=== PATIENT | male | born 1970 | race Caucasian/White ===

== ENCOUNTER 2023-07-30 01:14 | Emergency (ER) | payer MEDICARE, MEDICAID, SELFPAY ==
[2023-07-30 01:26] VITALS: BP 110/60; PULSE 65; O2SAT 97
--- NOTE | 2023-07-30 01:27 | MHC.EDTECH ---
@0125 PT rang his call salinas to be repositioned to his left side. Vitals obtained.
[2023-07-30 01:29] VITALS: BP 92/58; PULSE 62; RESP 18; TEMP 36.6; O2SAT 94; BMI 17.0
--- NOTE | 2023-07-30 02:02 | MHC.EDTECH ---
@0201, PT rang call salinas to be repositioned more on to his Left side. This tech assisted the patient. stated he was more comfortable. PT is all set at this time.
[2023-07-30 02:42] LABS: Basophils Absolute Auto 0.1 X10*3/uL (0.0-0.2); Basophils Percent Auto 0.6 % (0-2); Eosinophils Absolute Auto 1.1 X10*3/uL (0.0-0.4); Eosinophils Percent Auto 7.7 % (0-4); Hemoglobin 10.4 g/dl (14.0-18.0); Imm Gran Abs Auto 0.04 X10*3/uL (0.00-0.03); Imm Gran Pct Auto 0.3 % (0.0-0.4); Lymphocytes Absolute Auto 2.7 X10*3/uL (1.2-4.9); Lymphocytes Percent Auto 18.3 % (20-40); MANUAL DIFF FLAG NO; Mean Corpuscular HGB Conc 33.5 g/dl (31.0-36.0); Mean Corpuscular Volume 86.4 fL (80.0-98.0); Mean Platelet Volume 8.3 fL (9.4-12.4); Monocytes Absolute Auto 1.4 X10*3/uL (0.1-1.2); Monocytes Percent Auto 9.3 % (2-11); Neutrophils Absolute Auto 9.4 x10*3/uL (2.0-8.3); Neutrophils Percent Auto 63.8 % (45-73); Platelet Count 467 X10*3/uL (160-400); Red Blood Count 3.59 X10*6/uL (4.60-5.80); Red Cell Distribution Width 14.1 % (11.0-16.0); White Blood Count 14.8 X10*3/uL (4.8-10.8)
[2023-07-30 02:58] LABS: Alanine Aminotransferase 8 U/L (0-40); Albumin Level 3.7 g/dL (3.5-5.0); Alkaline Phosphatase 54 U/L (39-117); Anion Gap 14 (12-20); Aspartate Amino Transferase 15 U/L (5-37); Bilirubin Total 0.3 mg/dL (0.0-1.0); Blood Urea Nitrogen 14 mg/dL (9-16); Calcium 9.3 mg/dL (8.4-10.2); Carbon Dioxide 27 mmol/L (22-29); Chloride 104 mmol/L (96-108); Creatinine Clr Calc Pharmacy 103.9; Estimated Glomerular Filt Rate > 60; Glucose Random 86 mg/dL (60-115); Potassium 3.5 mmol/L (3.3-5.1); Sodium 141 mmol/L (135-145); Total Protein 6.7 g/dL (6.5-8.0)
--- NOTE | 2023-07-30 03:04 | MHC.EDTECH ---
@0303 PT rang his call bed to be repositioned to his back, This tech assisted him to his back. And got him a warm blanket, All set at this time. Tech reminder him to press his salinas if and when ready to be reposition.
--- NOTE | 2023-07-30 03:22 | MHC.EDTECH ---
@0321 PT repositioned to L side. All set at this time.
--- NOTE | 2023-07-30 03:48 | ED_ITS ---
HPI - Male Genitourinary General Chief complaint: Urogenital-Male Stated complaint: CATH ISSUES Time Seen by Provider: 07/30/23 03:13 Source: patient and EMS Mode of arrival: EMS Limitations: no limitations History of Present Illness HPI Narrative: 52-year-old male from [facility], had Luciano catheter placed at the facility at 14:00 with initial drainage of 200 mL, catheter is not draining any urine output since then, patient was transported feel like he needs to urinate with suprapubic distention bladder scan showed patient had 300 cc. Patient was started on Cipro for UTI. Related Data Allergies Allergy/AdvReac Type Severity Reaction Status Date / Time No Known Allergies Allergy Verified 07/30/23 01:35 Review of Systems 2 Review of Systems: All other systems are reviewed and are negative Constitutional: Reports as per HPI and Reports no additional constitutional complaints Eyes: Reports as per HPI and Reports no additional eye complaints Reports system reviewed and no additional complaints, except as documented Cardiovascular: Reports as per HPI and Reports no additional cardiovascular complaints Respiratory: Reports as per HPI and Reports no additional respiratory complaints Gastrointestinal: Reports as per HPI and Reports no additional gastrointestinal complaints Genitourinary: Reports no additional female genitourinary complaints Musculoskeletal: Reports no additional musculoskeletal complaints Skin/Breast: Reports system reviewed and no additional complaints, except as docu Psychiatric: Reports no additional psychiatric complaints Endocrine: Reports no additional endocrine complaints Hematologic/Lymphatic: Reports no additional hematologic/lymphatic complaints Allergic/Immunologic: Reports no additional allergic/immunologic complaints Reports system reviewed and no additional complaints, except as documented and Reports Abnormal speech present [facility] Social History Social History Alcohol intake: former Smoked in Last 30 Days: Yes Use of substances other than those prescribed or required for medical reasons: Yes Substance Use Type: Marijuana Advance Directives: Yes Advance Directives on File: Yes Advance Directives Date on File: 07/30/23 Physical Exam 2 Vital Signs: Vital Signs: Last Vital Signs Temp 98.4 F 07/30/23 03:55 Pulse 70 07/30/23 03:55 Resp 18 07/30/23 03:55 BP 115/78 07/30/23 03:55 Pulse Ox 97 07/30/23 03:55 O2 Del Method Room Air 07/30/23 03:55 BMI result Body Mass Index 17.0 Vital signs have been reviewed and appear to be correct. Blood pressure elevated. Heart rate normal. Respiratory rate normal. Temperature normal. Oxygen saturation normal. Appearance: Alert. Oriented X3. No acute distress. Head: Normal external exam. Normocephalic. Atraumatic. No Daly signs noted. No raccoon eyes noted Eyes: PERRLA. EOMI. Conjunctiva and sclera normal. Eyelids normal. ENT: TM's Normal. Pharynx normal. Uvula midline. Moist mucous membranes. No trismus noted. No drooling noted. No muffled voice noted. Neck: Normal inspection. Neck supple. FROM. No adenopathy. Thyroid Normal. No meningeal signs. No neck mass noted. CVS: Normal heart rate and rhythm. Heart sound normal. No murmurs noted. Pulses normal throughout. Respiratory: No respiratory distress. Painless inspiration. Breath sounds normal. No wheezes/rales/rhonchi noted. Chest nontender. No accessory muscle usage noted or decreased air movement noted. Abdomen: Soft and nontender. Bowel sounds normal in all 4 quadrants. No distention noted. No organomegaly noted. No visible injury noted. Back: No CVA tenderness. Full range of motion noted. Skin: Skin warm and dry. Normal skin color. Normal skin turgor. No rashes/lesions/lacerations noted. Extremities: No lower extremity edema. Extremities exhibit normal range of motion. Extremities nontender. Neuro: Oriented X 3. Cranial nerve exam: II-XII are grossly intact No motor deficit. No sensory deficit. Reflexes normal. Course Reevaluation(s) Reevaluation #1: Luciano catheter was replaced in the emergency department with drainage of urine, patient feels comfortable after drained 600 mL urine. Leukocytosis likely due to UTI the patient is currently on Cipro no sepsis or septic shock Patient is already on Cipro for UTI will arrange for transportation back to [facility]. Time: 05:00 Medical Decision Making Differential Diagnosis Differential Diagnoses: The differential diagnosis associated with the presentation includes (MARIALUISA, urinary retention, UTI, severe anemia, electrolyte derangement.) Admission/Observation Consideration of admission/observation: Escalation of care including admission/observation considered Lab Data MDM Lab Attestation statement: I reviewed the patient's lab results. 07/30/23 02:37 07/30/23 02:37 Labs: Lab Results 07/30/23 Range/Units 02:37 WBC 14.8 H (4.8-10.8) X10*3/uL RBC 3.59 L (4.60-5.80) X10*6/uL Hgb 10.4 L (14.0-18.0) g/dl Hct 31.0 L (42.0-52.0) % MCV 86.4 (80.0-98.0) fL MCH 29.0 (27.0-33.0) pg MCHC 33.5 (31.0-36.0) g/dl RDW 14.1 (11.0-16.0) % Plt Count 467 H (160-400) X10*3/uL MPV 8.3 L (9.4-12.4) fL Immature Gran % (Auto) 0.3 (0.0-0.4) % Neut % (Auto) 63.8 (45-73) % Lymph % (Auto) 18.3 L (20-40) % Cassia % (Auto) 9.3 (2-11) % Eos % (Auto) 7.7 H (0-4) % Baso % (Auto) 0.6 (0-2) % Lymph # (Auto) 2.7 (1.2-4.9) X10*3/uL Cassia # (Auto) 1.4 H (0.1-1.2) X10*3/uL Eos # (Auto) 1.1 H (0.0-0.4) X10*3/uL Baso # (Auto) 0.1 (0.0-0.2) X10*3/uL Abs Immat Gran (auto) 0.04 H (0.00-0.03) X10*3/uL Absolute Neuts (auto) 9.4 H (2.0-8.3) x10*3/uL Absolute Nucleated RBC 0.000 (0.0-0.012) X10*3/uL Nucleated RBC % (auto) 0.0 (0.0-0.2) /100WBC Sodium 141 (135-145) mmol/L Potassium 3.5 (3.3-5.1) mmol/L Chloride 104 (96-108) mmol/L Carbon Dioxide 27 (22-29) mmol/L Anion Gap 14 (12-20) BUN 14 (9-16) mg/dL Creatinine 0.63 (0.5-1.4) mg/dL Estim Creat Clear Calc 103.9 Estimated GFR > 60 Random Glucose 86 (60-115) mg/dL Calcium 9.3 (8.4-10.2) mg/dL Total Bilirubin 0.3 (0.0-1.0) mg/dL AST 15 (5-37) U/L ALT 8 (0-40) U/L Alkaline Phosphatase 54 (39-117) U/L Total Protein 6.7 (6.5-8.0) g/dL Albumin 3.7 (3.5-5.0) g/dL Discharge Plan Discharge Clinical Impression: Urinary tract infection, Malfunction of indwelling urinary catheter Patient Disposition: Xfer [facility] Instructions: Luciano Catheter Placement and Care (ED) Referrals: Johnnie Sands MD [Physician] - Print Language: Peruvian
[2023-07-30 03:55] VITALS: BP 115/78; PULSE 70; RESP 18; TEMP 36.9; O2SAT 97
--- NOTE | 2023-07-30 04:00 | PC.NURSE ---
Pt A[facility]Ox3[facility], staff reports F/C placed at 2pm with output of 200 mL and since then Pt has not had any urine output. Attempts made to irrigate & F/C was changed. Pt on Cipro for UTI. Pt reports discomfort to bladder, no urine output noted in 16F f/c placed by rehab center. Bladder scan results 311 mL. F/C replaced to 18F, with 600 mL of clear yellow urine, small clot noted on insertion, Pt tolerated well. Pt reports hx of MS, contracture to lower extremities. Pt repositioned for comfort.
[2023-07-30 06:00] VITALS: BP 111/65; PULSE 73; RESP 16; TEMP 37.2; O2SAT 96
--- NOTE | 2023-07-30 06:13 | MHC.EDTECH ---
@5256 PT rang call salinas to be repositioned. At this time PT is all set.
--- NOTE | 2023-07-30 06:51 | MHC.EDTECH ---
@2072 PT rang call salinas to be repositioned to L side. All set at this time.
[2023-07-30 06:59] VITALS: BP 111/65; PULSE 73; RESP 16; TEMP 37.2; O2SAT 96
--- NOTE | 2023-07-30 07:02 | PC.NURSE ---
[facility] Pt awaiting transport via [facility].
== END 2023-07-30 08:59 ==
PROVIDERS: Emergency Provider Emergency Medicine
DX: N39.0 Urinary tract infection, site not specified (principal); T83.018A Breakdown (mechanical) of other urinary catheter, initial encounter; Y84.6 Urinary catheterization as the cause of abnormal reaction of the patient, or of later complication, without mention of misadventure at the time of the procedure; Y92.9 Unspecified place or not applicable
CPT/HCPCS: 36415; 51702; 80053; 85025; 99283; 99284

== ENCOUNTER 2023-09-25 11:08 | Outpatient (AMB) | payer MEDICARE, MEDICAID, SELFPAY ==
--- OUTSIDE RECORDS SUMMARY | 2023-09-25 11:10 | XMS_ITS | Continuity of Care Document ---
Author Organization [facility] Address [address] [place] [address] [address] [place] [address]- Care Team Providers Care Transit Mix Operator Name Role Phone Sami STAPLES, Geo Novak Primary Care Physician Encounter [facility] Date(s): 02/25/23 - 05/21/23 [facility] [address] [place] [id number]- Attending Physician: [place] STAPLES, Darrel Urias Referring Physician: Not on Staff, Referring MD Allergies, Adverse Reactions, Alerts No Known Allergies Medications acetaminophen 325 mg oral tablet 650 mg, 2, tablet, By Mouth, Every 4 hours, PRN, Maintenance, pain/fever >100F, 12/03/22 14:25:00 EDT, Partial fill upon patient request if the prescription is for a schedule II opioid drug. Start Date: 12/03/22 Status: Ordered bisacodyl 10 mg rectal suppository 1 supp = 10 mg, Rectally, Every 72 hours, PRN if no BM in 3 days, Maintenance, 12/03/22 14:27:00 EDT, Suppository, Partial fill upon patient request if the prescription is for a schedule II opioid drug. Start Date: 12/03/22 Status: Ordered dantrolene 25 mg oral capsule = 25 mg, By Mouth, 3 times a day, 0 Refills, Maintenance, 03/11/23 15:31:00 EST, Capsule, Partial fill upon patient request if the prescription is for a schedule II opioid drug. Start Date: 03/11/23 Status: Ordered Docusate Sodium Capsule 100 mg, 1, capsule, By Mouth, 2 times a day, Refills 0, Maintenance, 03/11/23 15:31:00 EST, Partialfill upon patient request if the prescription is for a schedule II opioid drug. Start Date: 03/11/23 Status: Ordered fludrocortisone 0.1 mg oral tablet = 0.2 mg, By Mouth, Daily, 0 Refills, Maintenance, 03/11/23 15:40:00 EST, Tablet, Partial fill uponpatient request if the prescription is for a schedule II opioid drug. Start Date: 03/11/23 Status: Ordered lidocaine 5% topical film Topically, Daily, 0 Refills, Maintenance, 03/11/23 15:31:00 EST, Patch, Partial fill upon patient request if the prescription is for a schedule II opioid drug. Start Date: 03/11/23 Status: Ordered melatonin 3 mg oral tablet = 3 mg, By Mouth, Daily at bedtime, PRN Insomnia, 0 Refills, Maintenance, 03/11/23 15:32:00 EST, Tablet, Partial fill upon patient request if the prescription is for a schedule II opioid drug. Start Date: 03/11/23 Status: Ordered midodrine 5 mg oral tablet 15 mg, By Mouth, 3 times a day, Refills 0, Maintenance, 03/11/23 15:31:00 EST, Partial fill upon patient request if the prescription is for a schedule II opioid drug. Start Date: 03/11/23 Status: Ordered MOM Liquid 30 mL, By Mouth, Every 72 hours, PRN if no BM in 3 days, Maintenance, 12/03/22 14:29:00 EDT, Partial fill upon patient request if the prescription is for a schedule II opioid drug. Start Date: 12/03/22 Status: Ordered Multivit Therapeutic/Minerals Tablet 1 tablet, By Mouth, Daily, 0 Refills, Maintenance, 03/11/23 15:31:00 EST, Tablet, Partial fill uponpatient request if the prescription is for a schedule II opioid drug. Start Date: 03/11/23 Status: Ordered pantoprazole 20 mg oral delayed release tablet = 20 mg, By Mouth, Daily, 0 Refills, Maintenance, 03/11/23 15:31:00 EST, EC Tablet Start Date: 03/11/23 Status: Ordered Remove Patch Start Date: 03/11/23 Status: Ordered senna 187 mg oral tablet 1 tablet = 8.6 mg, By Mouth, 2 times a day, 0 Refills, Maintenance, 03/11/23 15:31:00 EST, Tablet, Partial fill upon patient request if the prescription is for a schedule II opioid drug. Start Date: 03/11/23 Status: Ordered thiamine 100 mg oral tablet 100 mg, By Mouth, 2 times a day, Refills 0, Maintenance, 03/11/23 15:31:00 EST, Partial fill upon patient request if the prescription is for a schedule II opioid drug. Start Date: 03/11/23 Status: Ordered Problem List Condition Confirmation Course Effective Dates Status H ealth Status Informant Weakness Confirmed Active Fall from wheelchair Confirmed Active MS (multiple sclerosis) Confirmed Active Urinary retention Confirmed Active Rhabdomyolysis Confirmed Active UTI (urinary tract infection) Confirmed Active Social History Social History Type Response Smoking Status 5-9 cigarettes (betw een 1/4 to 1/2 pack)/day in last 30 days entered on: 03/25/18 Sex Patient Care team information Care Team Personnel Name: Geo Gallardo MD Position: [facility] Physician - Primary Care Member Role: PCP Address: Address: [address] [place] [address] Name: Sabine Calvo RN Position: [facility] RN Member Role: Primary Care Nurse Name: Chyna Curtis RN Position: [facility] RN Member Role: Primary Care Nurse Name: Austin Holden RN Position: [facility] RN Member Role: Primary Care Nurse Name: Benja Christianson RN Position: [facility] RN Member Role: Primary Care Nurse Name: Chyna Gooden LPN Position: [facility] RN Member Role: Primary Care Nurse Name: Conrado Peña RN Position: [facility] RN Member Role: Primary Care Nurse Name: Vitaliy Marie RN Position: [facility] RN Member Role: Primary Care Nurse Name: Linda Mcbride RN Position: [facility] RN Member Role: Primary Care Nurse Name: Price Saeed RN Position: [facility] RN Member Role: Primary Care Nurse Name: Flavia Villegas RN Position: S RN Member Role: Primary Care Nurse Name: Kelly Dodge RN Position: [facility] RN Member Role: Primary Care Nurse Care Team Related Persons Name: CARMINA AVILA Address: home [address] [place] [id number] Name: LORNE TINEO Address: [place] [address]
--- OUTSIDE RECORDS SUMMARY | 2023-09-25 11:10 | XMS_ITS | Continuity of Care Document ---
Author Organization [facility] Address [address] [place] [id number]- Care Team Providers Care Recreation Programmer Name Role Phone Sami STAPLES, Geo Novak Primary Care Physician ( [phone] Encounter [facility] Date(s): 06/09/23 - 07/09/23 [facility] [address] [place] [id number]- Attending Physician: Katie Ansari Admitting Physician: Katie Ansari Referring Physician: AdmKatie guerrero Allergies, Adverse Reactions, Alerts No Known Allergies [...] Team Personnel Name: Geo Gallardo MD Position: [facility] Physician - Primary Care Member Role: PCP Address: Address: [address] [place] [id number] Name: Sabine Calvo RN Position: [facility] RN Member Role: Primary Care Nurse Name: Chyna Curtis RN Position: [facility] RN Member Role: Primary Care Nurse Name: Austin Holden RN Position: [facility] RN Member Role: Primary Care Nurse Name: Benja Christianson RN Position: [facility] RN Member Role: Primary Care Nurse Name: Chyna Gooden LPN Position: [facility] RN Member Role: Primary Care Nurse Name: Conrado Peña RN Position: [facility] RN Member Role: Primary Care Nurse Name: Vitaliy Marie RN Position: [facility] RN Member Role: Primary Care Nurse Name: Linda Mcbride RN Position: [facility] RN Member Role: Primary Care Nurse Name: Price Saeed RN Position: [facility] RN Member Role: Primary Care Nurse Name: Flavia Villegas RN Position: [facility] RN Member Role: Primary Care Nurse Name: Kelly Dodge RN Position: [facility] RN Member Role: Primary Care Nurse Care Team Related Persons Name: CARMINA AVILA Address: home [address] [place] [id number] Name: LORNE TINEO Address: [place] [address]
--- OUTSIDE RECORDS SUMMARY | 2023-09-25 11:10 | XMS_ITS | Summary of Care ---
Author Organization [facility] Address [address] [place] [id number] Encounter 12/08/22 - 12/26/[address] [address] Discharge Disposition: Discharge/Transfer to Inpatient SNF Attending Physician: Francisco Green MD Admitting Physician: Francisco Green MD Allergies, Adverse Reactions, Alerts No Known Medication Allergies Assessment and Plan Extracted from: Title:Discharge Summary Rehab Author:Anjali Figueroa Date:12/26/22 Patient: JD AVILA Age: 52 years Sex: Male : 1970 Associated Diagnoses: None Author: Anjali Figueroa Discharge Information Discharge Summary Information Admitted 12/08/2022 Discharged 12/26/2022 History of Present Illness [This is a 52-year-old male with a significant past medical history of MS who was recently hospitalized secondary to UTI and rhabdomyolysis and was discharged to [facility] after a fall that occurred 3 weeks ago. Was evaluated at [facility] at that time and spent 2 weeks at [facility] before discharging to [facility] where patient shortly after he developed leukocytosis and was sent to [facility] for evaluation for likely sepsis secondary to UTI with Pseudomonas. In ED patient was found to have penile erythema small amount of white purulent drainage noted at the penile meatus and small lesions under the meatus with no pus or erythema noted. Luciano catheter was replaced in the ED, urology was consulted and declined suprapubic catheter patient was started on Rocephin ID consulted and they recommended 1 week antibiotic course from 12/02 and completed IV antibiotics today day of discharge prior to admission here at [facility]. Neurology was also consulted for MS management due to worsening lower extremity spasticity. Patient did have head CT, MRI of T-spine and L-spine with and without contrast with head CT showing no acute findings but does show evidence of a right thalamic possible lacunar infarct in addition to significant white matter disease possibly from MS. MRIs were not able to be obtained secondary to availability in hospital. Patient continued to be improved clinically and patient was trialed on oxycodone, baclofen, and clonazepam for spasticity. Patient cannot tolerate baclofen 10 mg 3 times daily and oxycodone secondary to increased somnolence therefore the dose was decreased to baclofen 5 mg 3 times daily and as needed clonazepam. Patient was deemed medically stable and discharged here to [facility] for short-term rehab with goals to return back to home.] Histories Past Medical/ Surgical History: [Multiple sclerosis no surgical history] Code Status: This was discussed in detail with the patient and full resuscitation Current Care Providers: PCP is Lyla Obando NP Family History: [No significant familial history Social History: [Lives alone, current smoker 1 pack/day for 30 years, occasional marijuana use, has not consumed alcohol in roughly 2-1/2 years Premorbid Functional History: from discussion patient does need help with majority of ADLs and IADLs which include dressing showering transferring. Needs a wheelchair to maneuver at home. Hospital Course Multiple sclerosis with acute exacerbation -Currently being treated for acute exacerbation. Received iv methylprednisolone 1gm daily X 4 days completed last dose today - continue Protonix 40 mg twice daily and will monitor blood sugars during this time period as well. Patient reports feeling much better today compared to over the past few weeks. Was able to participate in therapy all day yesterday. ? Baclofen 10 mg 3 times daily. We will treat as this is MS flare. ? Physiatry following. Should follow-up with [facility] neurology outpatient for repeat MRI. Pt did have EMG at [facility] pending results, he will need follow up with neurology scheduled. Urinary retention with Luciano catheter ? Continue Flomax 0.4 mg nightly, finasteride 5 mg daily. - wounds from F/C continue mupirocin and nystatin to penile ulcer. - Follow-up with physiatry for voiding trial as stated above - he has refused voiding trial Acute on chronic lower back pain - no pain today ? Physiatry following. Will monitor. - continue lidocaine patch QHS - lumbar x-ray revealed L1-L2 arthritis - we trialed Valium for spams and pain with no improvement therefore discontinued Adjustment Disorder - suspect Pt is depressed he has not been eating, refuses therapies at times secondary to pain and muscle spasms although he has participated more often in the last 5 days - Patient was seen by the counselor during the rehab stay. Follow-up with PCP regarding continued services. Leukocytosis- resolved ? On admittance to rehab was at 11. Likely reactive. Fluid encouraged. ? Repeat was normal at 9.3. Continue to monitor. Sepsis secondary to UTI with physical deconditioning and impaired functional mobility and ADLs ? With prolonged hospitalization x2 - Treated initially with IV ceftriaxone and completed course of treatment on 12/08. Urine became colonized with Pseudomonas secondary to chronic Luciano. - Leukocytosis resolved. Patient to follow-up urology as outpatient. Continue hydration. Monitor. Nicotine use ? Continue with nicotine patch. RT following. ? Encourage cessation. Monitor. DVT prophylaxis: -Lovenox 40 mg daily and to ambulating at baseline Results Review CBC WITH AUTO DIFF ( Status: F ) WBC 9.3 4.8-10.8 x10-3/uL RBC 4.5 4.5-5.5 x10-6/uL HEMOGLOBIN 13.6 13.5-17.5 g/dL HEMATOCRIT 39.4 L 42-54 % MCV 87.6 79-98 fL MCH 30.2 27-32 pg MCHC 34.5 32-37 g/dL RDW 13.0 11-15 % PLT COUNT 529 H 130-400 x10-3/uL MEAN PLATELET VOLUME 9.2 7-11 fL NRBC % AUTO 0.0 <1 % NEUT % 53.4 % LYMPH % 27.3 % MONO % 13.6 % EOS % 4.4 % BASO % 1.1 % IMMATURE GRANULOCYTES % 0.2 % NRBC # AUTO 0.00 <0.1 x10-3/uL ABSOLUTE NEUT 4.97 1.5-7.0 x10-3/uL LYMPH # 2.54 1-5.0 x10-3/uL MONO # 1.27 H 0.2-1.0 x10-3/uL EOS # 0.41 0-0.5 x10-3/uL BASO # 0.10 0-0.2 x10-3/uL IMMATURE GRANULOCYTES # 0.02 0-0.03 x10-3/uL ML C COMPREHENSIVE METABOLIC PANEL ( Status: F ) GLUCOSE 76 70-100 mg/dL C BUN 19 5-25 mg/dL CREAT 0.74 0.7-1.3 mg/dL GLOMERULAR FILTRATION RATE 109 >60 C SODIUM 139 135-145 mEq/L POTASSIUM 3.9 3.5-5.5 mmol/L CHLORIDE 101 96-110 mmol/L CO2 29 21-32 mmol/L ANION GAP 9 3-11 CALCIUM 9.0 8.5-10.5 mg/dL TOTAL PROTEIN 7.1 6.0-8.0 G/dL ALBUMIN 3.5 3.2-5.0 G/dL BILI,TOTAL 0.4 0.0-1.4 mg/dL SGOT 23 10-42 U/L SGPT 31 10-60 U/L ALK PHOS 81 42-121 U/L MAGNESIUM ( Status: F ) MAGNESIUM 2.3 1.9-2.6 mg/dL Allergies (1) Active Reaction No Known Medication Allergies None Documented Discharge Medications (10) Active aspirin 81 mg oral delayed release tablet 81 mg = 1 tab, Oral, Daily baclofen 10 mg oral tablet 10 mg = 1 tab, Oral, TID enoxaparin 40 mg/0.4 mL injectable solution 40 mg = 0.4 mL, Subcutaneous, Daily finasteride 5 mg oral tablet 5 mg = 1 tab, Oral, Daily Flomax 0.4 mg oral capsule 0.4 mg = 1 cap, Oral, QHS melatonin 10 mg oral capsule 10 mg = 1 cap, PRN, Oral, QHS mirtazapine 15 mg oral tablet 7.5 mg = 0.5 tab, Oral, QHS Multiple Vitamins with Minerals oral tablet 1 tab, Oral, Daily nicotine 21 mg/24 hr transdermal film, extended release 1 patch, Transdermal, Daily oxyCODONE 5 mg oral tablet 5 mg = 1 tab, PRN, Oral, q6hr Zanaflex 4 mg oral tablet 2 mg = 0.5 tab, Oral, q8hr ADL Status Trend [id number] Eating: Setup or clean-up assistance - 05 (12/26/22 08:00:00) [id number] Eating: Setup or clean-up assistance - 05 (12/25/22 17:00:00) [id number] Oral Hygiene: Setup or clean-up assistance - 05 (12/24/22 20:00:00) [id number] Oral Hygiene: Setup or clean-up assistance - 05 (12/24/22 07:00:00) [id number] Upper Body Dressing: Patient/Resident refused - 07 (12/25/22 20:00:00) [id number] Upper Body Dressing: Patient/Resident refused - 07 (12/24/22 20:00:00) [id number] Lower Body Dressing: Dependent - (12/25/22 20:00:00) [id number] Lower Body Dressing: Dependent - (12/24/22 20:00:00) [id number] Toileting Hygiene: Dependent - (12/24/22 13:00:00) [id number] Toileting Hygiene: Dependent - (12/24/22 07:00:00) [id number] Toilet Transfer: Dependent - (12/24/22 07:00:00) [id number] Toilet Transfer: Dependent - (12/22/22 13:05:00) SY7422 Shower, Bathe Self: Patient/Resident refused - 07 (12/24/22 20:00:00) [id number] Shower, Bathe Self: Partial/Moderate assistance - 03 (12/24/22 07:00:00) Tub/Shower Transfer- OT: Dep (12/23/22 11:44:00) Tub/Shower Transfer- OT: Dep (12/16/22 09:59:00) Diet -- 12/11/22 8:52:00 EDT, Texture: Level 7 - Regular, Liquid Consistency: Level 0 - Thin, Restrictions: No Restrictions, Adapative Equipment: Built up utensils Scoop dish, Special Instructions: 12/10/22 Diced Mobility Functional Status Trend [id number] Lying to Sitting Side of Bed Goal: Partial/Moderate assistance - 03 (12/23/22 11:44:00) [id number] Lying to Sitting Side of Bed Goal: Partial/Moderate assistance - 03 (12/19/22 08:50:00) [id number] Sit to Stand: Partial/Moderate assistance - 03 (12/24/22 12:00:00) [id number] Sit to Stand: Not attempted due to medical condition or safety concerns - 88 (12/24/22 11:00:00) [id number] Chair,Bed to Chair Transfer: Dependent - 01 (12/25/22 09:00:00) [id number] Chair,Bed to Chair Transfer: Partial/Moderate assistance - 03 (12/24/22 12:00:00) [id number] Walk 10 Feet: Not attempted due to medical condition or safety concerns - (12/24/22 11:00:00) [id number] Walk 10 Feet: Not attempted due to medical condition or safety concerns - (12/22/22 13:00:00) [id number] Walk 50 Feet with Two Turns: Not attempted due to medical condition or safety concerns - (12/24/22 11:00:00) [id number] Walk 50 Feet with Two Turns: Not attempted due to medical condition or safety concerns - (12/22/22 13:00:00) [id number] Walk 150 Feet: Not attempted due to medical condition or safety concerns - (12/24/22 11:00:00) [id number] Walk 150 Feet: Not attempted due to medical condition or safety concerns - (12/22/22 13:00:00) WC Mobility- Level Comments: Pt in tilt in space w/c. Dependent to push w/c. (12/22/22 13:00:00) Speech/Language & Cognition Functional Status Trend Health Literacy SILS: Never (12/25/22 14:56:00) [id number] Expression of Ideas and Wants: Expresses complex messages without difficulty and with speech that is clear and easy to understand - 4 (12/25/22 09:56:00) [id number] Expression of Ideas and Wants: Exhibits some difficulty with expression needs and ideas (e.g., some words or finishing thoughts) or speech is not clear - 3 (12/24/22 16:22:00) EN1285 Understanding Verbal Content: Understands - Clear comprehension without cues or repetitions - 4 (12/25/22 09:56:00) [id number] Understanding Verbal Content: Usually understands - Understands most conversations, but misses some part/intent of message. Requires cues at times to understand - 3 (12/24/22 16:22:00) Person Orientation IP: Independent (12/19/22 08:50:00) Person Orientation IP: Independent (12/16/22 09:59:00) Place Orientation IP: Independent (12/19/22 08:50:00) Place Orientation IP: Independent (12/16/22 09:59:00) Time Orientation IP: Independent (12/19/22 08:50:00) Time Orientation IP: Independent (12/16/22 09:59:00) Situation Orientation IP: Independent (12/19/22 08:50:00) Situation Orientation IP: Independent (12/16/22 09:59:00) Attention Functional Status - OT: Usually Independent (12/24/22 07:00:00) Attention Functional Status - OT: Usually Independent (12/23/22 11:44:00) Memory Functional Status - OT IP: Usually Independent (12/24/22 07:00:00) Memory Functional Status - OT IP: Usually Independent (12/23/22 11:44:00) Safety Awareness/Insight - OT: Usually Independent (12/24/22 07:00:00) Safety Awareness/Insight - OT: Usually Independent (12/23/22 11:44:00) Simple Problem Solving Func Status OT: Usually Independent (12/24/22 07:00:00) Simple Problem Solving Func Status OT: Usually Independent (12/23/22 11:44:00) Complex Problem Solving Func Status OT: Usually Independent (12/24/22 07:00:00) Complex Problem Solving Func Status OT: Usually Independent (12/23/22 11:44:00) Vital Signs (last 24 hrs) Last Charted Temp Oral 97.9 DegF (DEC 26 05:09) Heart Rate Peripheral L 51bpm (DEC 26 05:10) SBP 91 mmHg (DEC 26 05:10) DBP L 57mmHg (DEC 26 05:10) SpO2 98 % (DEC 26 05:10) General: Patient was sitting up in WC. HEENT: PERRLA and EOMI Respiratory: Fair air entry bilateral. No rales or wheezing Cardiovascular: Regular rhythm S1 S2. No murmur heard Abdomen: soft, non-tender and BS present Extremities: No LE edema and no calf tenderness bilaterally Musculoskeletal: Diffuse muscle wasting, BLE contracture and tone increase Neuro: AOx3. Cranial nerves intact. Generalized weakness Luciano in place draining yellow urine Discharge Plan Discharge disposition: [facility]. Education and Follow-up Counseled: patient. Discharge Summary Plan Discharge Status: mild improvement. Prescriptions: continue same medications. Total time spent on DC is 38 minutes Addendum by Guillermo Suárez MD on December 26, 2022 13:34 EDT Patient seen chart review discussed with CARMINA Yepez patient also examined. Patient does need 24-hour care he is being discharged to a intermediate facility for continued rehabilitation and care. HEENT: pupils are equal reactive extraocular motions are intact, oral mucosa pink and moist Respiratory: Lungs clear to auscultation without wheezes, rales or rhonchi Cardiovascular: Regular rate and rhythm without murmurs, rubs or gallops Medical team at the intermediate facility will continue to follow the patient. Medications aspirin 81 mg oral delayed release tablet 81 mg, = 1 tab, Indication: Cerebrovascular accident Tab-EC, Oral, Daily, 0 Refill(s) Start Date: 12/26/22 Status: Ordered baclofen 10 mg oral tablet 10 mg = 1 tab, Tab, Oral, TID, 0 Refill(s) Start Date: 12/26/22 Status: Ordered enoxaparin 40 mg/0.4 mL injectable solution 40 mg, = 0.4 mL, Soln-Inj, Subcutaneous, Daily, 0 Refill(s), DVT Prophylaxis Start Date: 12/26/22 Status: Ordered finasteride 5 mg oral tablet 5 mg = 1 tab, Tab, Oral, Daily, 0 Refill(s) Start Date: 12/25/22 Status: Ordered Flomax 0.4 mg oral capsule 0.4 mg = 1 cap, Cap, Oral, QHS, 0 Refill(s) Start Date: 12/25/22 Status: Ordered melatonin 10 mg oral capsule 10 mg = 1 cap, Cap, Oral, QHS PRN, 0 Refill(s), Insomnia Start Date: 12/25/22 Status: Ordered mirtazapine 15 mg oral tablet 7.5 mg = 0.5 tab, Tab, Oral, QHS, 0 Refill(s) Start Date: 12/25/22 Status: Ordered Multiple Vitamins with Minerals oral tablet 1 tab, Tab, Oral, Daily, 0 Refill(s) Start Date: 12/25/22 Status: Ordered nicotine 21 mg/24 hr transdermal film, extended release 1 patch, Film, Transdermal, Daily, 0 Refill(s) Start Date: 12/26/22 Status: Ordered oxyCODONE 5 mg oral tablet 5 mg = 1 tab, Tab, Oral, q6hr PRN, 12 tab, 0 Refill(s), Dispense: 3 day, Partial fill upon patient request., PAIN (Scale 7-10), Stop date 12/28/22 11:16:00 EDT, Route to Pharmacy Electronically, [facility]/pharmacy #[id number], [phone], 12/23/22 7:07:00 EDT, Height/Le... Start Date: 12/25/22 Stop Date: 12/28/22 Status: Ordered Zanaflex 4 mg oral tablet 2 mg = 0.5 tab, Tab, Oral, q8hr, 0 Refill(s) Start Date: 12/26/22 Status: Ordered Problem List Condition Effective Dates Status Health Status Inform ant Depression(Confirmed) Active Fall(Confirmed) Active MS - Multiple sclerosis(Confirmed) Active UTI - Urinary tract infection(Confirmed) Active Results Laboratory List Name Date Glucose, POC 12/26/22 Glucose, POC 12/26/22 Glucose, POC 12/25/22 Most recent to oldest [Reference Range]: 1 2 3 Creatinine Level 0.74 mg/dL (12/19/22 12:29 PM) 0.79 mg/dL (12/11/22 10:44 AM) 0.65 mg/dL (12/09/22 10:45 AM) Estimated Creatinine Clearance 100.75 mL/min 1 (12/23/22 7:07 AM) 107.69 mL/min 2 (12/19/22 12:29 PM) 100.25 mL/min 3 (12/11/22 10:44 AM) Glucose POC RALS [74-106 mg/dL] 124 mg/dL *HI* (12/26/22 12:27 PM) 92 mg/dL (12/26/22 6:13 AM) 236 mg/dL *HI* (12/25/22 8:45 PM) 1Result Comment: Calculated using method: Cockcroft-Gault (default) Calculated using Formula : (140-ageInYears)*weightInKG/(72*scrInMGperDL) Age: 52 (85760196496.0) Serum Creatinine: 0.74 mg/dL (15142708466.0) Height: 178 cm (06886858114.0) Weight: 61 kg (Actual Body Weight used) 2Result Comment: Calculated using method: Cockcroft-Gault (default) Calculated using Formula : (140-ageInYears)*weightInKG/(72*scrInMGperDL) Age: 52 (18864812947.0) Serum Creatinine: 0.74 mg/dL (36226110524.0) Height: 178 cm (25313161815.0) Weight: 65.2 kg (Actual Body Weight used) 3Result Comment: Calculated using method: Cockcroft-Gault (default) Calculated using Formula : (140-ageInYears)*weightInKG/(72*scrInMGperDL) Age: 52 (29680254702.0) Serum Creatinine: 0.79 mg/dL (61758167677.0) Height: 178 cm (86539670277.0) Weight: 64.8 kg (Actual Body Weight used) Vital Signs Most recent to oldest [Reference Range]: 1 2 3 Temperature Oral F [96.4-99.1 DegF] 97.9 DegF (12/26/22 5:09 AM) 98.2 DegF (12/25/22 3:01 PM) 97.9 DegF (12/25/22 2:35 AM) Apical Heart Rate [60-100 bpm] 88 bpm (12/22/22 5:15 AM) Peripheral Pulse Rate [60-100 bpm] 51 bpm *LOW* (12/26/22 5:10 AM) 56 bpm *LOW* (12/25/22 3:02 PM) 50 bpm *LOW* (12/25/22 2:35 AM) Respiratory Rate [14-20 br/min] 16 br/min (12/25/22 2:35 AM) 20 br/min (12/22/22 4:34 AM) 20 br/min (12/21/22 4:05 AM) Blood Pressure [90-140/60-90 mmHg] 93/60mmHg (12/25/22 3:01 PM) Systolic Blood Pressure [90-140 mmHg] 91 mmHg (12/26/22 5:10 AM) 96 mmHg (12/25/22 2:35 AM) Diastolic Blood Pressure [60-90 mmHg] 57 mmHg *LOW* (12/26/22 5:10 AM) 59 mmHg *LOW* (12/25/22 2:35 AM) Mean Arterial Pressure, Cuff 69 mmHg (12/26/22 5:10 AM) 71 mmHg (12/25/22 3:01 PM) 71 mmHg (12/25/22 2:35 AM) Extremity used to obtain blood pressure Left Arm (12/19/22 4:21 AM) Left Arm (12/14/22 5:08 AM) Right Arm (12/13/22 8:07 PM) Temperature Oral 36.6 DegC 1 (12/26/22 5:09 AM) 36.8 DegC 2 (12/25/22 3:01 PM) Temperature Oral [35.8-37.3 DegC] 36.6 DegC (12/25/22 2:35 AM) 1Result Comment: Charted by SYSTEM secondary to charting of Temperature Oral F on a Vitals Monitor. Rule: VITALSLINK_CALCULATIONS_2 2Result Comment: Charted by SYSTEM secondary to charting of Temperature Oral F on a Vitals Monitor. Rule: VITALSLINK_CALCULATIONS_2 Social History Social History Type Response Sex Male
--- OUTSIDE RECORDS SUMMARY | 2023-09-25 11:10 | XMS_ITS | Continuity of Care Document ---
Author Organization [facility] Address [address] [facility], [address], [address] [place] [phone]- Care Team Providers Care Supply Chain Business Analyst Name Role Phone Jalen Obando GREEN MARKETING ANALYST, Lyla Fritz Primary Care P bessy Encounter [facility] Date(s): 11/17/22 - 12/17/22 [facility] [address], [address], [address] [place] [id number]- Allergies, Adverse Reactions, Alerts No Known Allergies Medications acetaminophen 325 mg oral tablet 650 mg, 2, tablet, By Mouth, Every 4 hours, PRN, Maintenance, pain/fever >100F, 12/03/22 14:25:00 EDT, Partial fill upon patient request if the prescription is for a schedule II opioid drug. Start Date: 12/03/22 Status: Ordered baclofen 5 mg oral tablet = 5 mg, By Mouth, 3 times a day, 0 Refills, Maintenance, 12/08/22 14:11:00 EDT, Tablet, Partial fill upon patient request if the prescription is for a schedule II opioid drug. Start Date: 12/08/22 Status: Ordered bisacodyl 10 mg rectal suppository 1 supp = 10 mg, Rectally, Every 72 hours, PRN if no BM in 3 days, Maintenance, 12/03/22 14:27:00 EDT, Suppository, Partial fill upon patient request if the prescription is for a schedule II opioid drug. Start Date: 12/03/22 Status: Ordered clotrimazole 1% topical cream apply to meatus, Topically, 2 times a day, Maintenance, 12/03/22 14:27:00 EDT, Cream, Partial fill upon patient request if the prescription is for a schedule II opioid drug. Start Date: 12/03/22 Status: Ordered enoxaparin 40 mg/0.4 mL injectable solution 0.4 mL = 40 mg, Subcutaneous Injection, Daily, Started 11/30/22, Maintenance, 12/03/22 14:28:00 EDT,Solution, Partial fill upon patient request if the prescription is for a schedule II opioid drug. Start Date: 12/03/22 Status: Ordered finasteride 5 mg oral tablet 1 tablet = 5 mg, By Mouth, Daily, # 30 tablet, 0 Refills, Maintenance, 11/27/22 15:59:00 EDT, Tablet, Partial fill upon patient request if the prescription is for a schedule II opioid drug. Start Date: 11/27/22 Status: Ordered Fleet Enema 19 gm-7 gm rectal enema 1 each, Rectally, Every 72 hours, PRN if no BM in 3 days, Maintenance, 12/03/22 14:29:00 EDT, Enema, Partial fill upon patient request if the prescription is for a schedule II opioid drug. Start Date: 12/03/22 Status: Ordered Flomax 0.4 mg oral capsule 0.4 mg, By Mouth, Daily at bedtime, # 30 capsule, Refills 0, Tot. Refills 0, Maintenance, 11/27/22 15:59:00 EDT, Print Requisition, Partial fill upon patient request if the prescription is for a schedule II opioid drug. Start Date: 11/27/22 Status: Ordered mirtazapine 7.5 mg oral tablet = 7.5 mg, By Mouth, Daily at bedtime, # 30 tablet, 0 Refills, Maintenance, 11/27/22 16:00:00 EDT, Tablet, Partial fill upon patient request if the prescription is for a schedule II opioid drug. Start Date: 11/27/22 Status: Ordered MOM Liquid 30 mL, By Mouth, Every 72 hours, PRN if no BM in 3 days, Maintenance, 12/03/22 14:29:00 EDT, Partial fill upon patient request if the prescription is for a schedule II opioid drug. Start Date: 12/03/22 Status: Ordered Mupirocin Topical Oint 1 applicator, Topically, 2 times a day, Penile meatus, # 22 Gm, 1 Refills, Maintenance, Ointment Start Date: 12/08/22 Stop Date: 01/07/23 Status: Ordered nicotine 21 mg/24 hr transdermal film, extended release 1 patch, Topically, Daily, Maintenance, 12/03/22 14:30:00 EDT, Patch, Partial fill upon patient request if the prescription is for a schedule II opioid drug. Start Date: 12/03/22 Status: Ordered Nystatin Topical 1 applicator, Topically, 3 times a day, 0 Refills, Maintenance, Ointment Start Date: 12/08/22 Status: Ordered Problem List Condition Confirmation Course [...] last 30 days entered on: 03/25/18 Sex Male Patient Care team information Care Team Personnel Name: Jalen Obando GREEN MARKETING ANALYST, Lyla Fritz Position: [facility] PCO Associate Professional Member Role: PCP Address: Address: [address] [place] [address] Primary Care [place], [place] [id number] Name: Janie Samuels RN Position: [facility] RN Supv Member Role: Primary Care Nurse Name: Benja Christianson RN Position: S RN Member Role: Primary Care Nurse Name: Conrado Peña RN Position: S RN Member Role: Primary Care Nurse Name: Linda Mcbride RN Position: [facility] RN Member Role: Primary Care Nurse Care Team Related Persons Name: CARMINA AVILA Address: home [address] [place] [id number] Name: LORNE T[place]O Address: [place] [address]
--- OUTSIDE RECORDS SUMMARY | 2023-09-25 11:10 | XMS_ITS | Continuity of Care Document ---
Author Organization [facility] [place] Address [address] [place] [address]- Care Team Providers Care Document Processor Name Role Phone Sami STAPLES, Geo Novak Primary Care Physician Encounter [facility] [place] Date(s): 05/19/23 - 06/18/23 [facility] [place] [address] [place] [address]- Attending Physician: Katie Ansari Admitting Physician: Katie Ansari Referring Physician: AdmtrKatie Allergies, Adverse Reactions, Alerts No Known Allergies [...] Care team information Care Team Personnel Name: Sami STAPLES, Geo Novak Position: [facility] Physician - Primary Care Member Role: PCP Address: Address: [address] [place] [address]- Name: Sabine Calvo RN Position: [facility] RN Member Role: Primary Care Nurse Name: Chyna Curtis RN Position: [facility] RN Member Role: Primary Care Nurse Name: Austin Holden RN Position: [facility] RN Member Role: Primary Care Nurse Name: Benja Christianson RN Position: [facility] RN Member Role: Primary Care Nurse Name: Chyna Gooden LPN Position: [facility] RN Member Role: Primary Care Nurse Name: Conrado Peña RN Position: [facility] RN Member Role: Primary Care Nurse Name: Vitaliy Marie RN Position: [facility] RN Member Role: Primary Care Nurse Name: Linda Mcbride RN Position: [facility] SN RN Member Role: Primary Care Nurse Name: Price Saeed RN Position: [facility] RN Member Role: Primary Care Nurse Name: Flavia Villegas RN Position: S RN Member Role: Primary Care Nurse Name: Kelly Dodge RN Position: [facility] RN Member Role: Primary Care Nurse Care Team Related Persons Name: CARMINA AVILA Address: home [address] [place] [id number] Name: LORNE TINEO Address: [place] [address]
--- OUTSIDE RECORDS SUMMARY | 2023-09-25 11:10 | XMS_ITS | Continuity of Care Document ---
Author Organization [facility] Address [address] [place] [id number]- Care Team Providers Care Liquid Loader Name Role Phone Jalen Obando NP, Lyla Fritz Primary Care P bessy Encounter [facility] [place] Date(s): 12/23/22 - 01/22/23 [facility] [address] [place] [id number]- Allergies, Adverse Reactions, Alerts No Known Allergies [...] information Care Team Personnel Name: Jalen Obando SPECIAL EFFECTS TECHNICIAN, Lyla Fritz Position: [facility] Associate Professional Member Role: PCP Address: Address: [address] [place] [address] [place] [address]- Name: Benja Christianson RN Position: S RN Member Role: Primary Care Nurse Name: Conrado Peña RN Position: S RN Member Role: Primary Care Nurse Name: Linda Mcbride RN Position: [facility] RN Member Role: Primary Care Nurse Care Team Related Persons Name: LANCEOTTO CARMINA Address: home [address] [place] [id number] Name: LORNE TINEO Address: [place] [address]
--- OUTSIDE RECORDS SUMMARY | 2023-09-25 11:10 | XMS_ITS | Continuity of Care Document ---
Author Organization [facility] [place] Address [address] [place] [address]- Care Team Providers Care Applications Consultant Name Role Phone Geo Gallardo MD Primary Care Physician Encounter [facility] Date(s): 02/18/23 - 06/18/23 [facility] [place] [address] [place] [address]- Attending Physician: Geo Gallardo MD Allergies, Adverse Reactions, Alerts No Known [...] Team Personnel Name: Geo Gallardo MD Position: [facility] Physician - Primary Care Member Role: PCP Address: Address: [address] [place] [address]- Name: Sabine Calvo RN Position: [facility] RN Member Role: Primary Care Nurse Name: Chyna Curtis RN Position: [facility] RN Member Role: Primary Care Nurse Name: Austin Holden RN Position: [facility] RN Member Role: Primary Care Nurse Name: Benja Christianson RN Position: [facility] RN Member Role: Primary Care Nurse Name: Chyna Gooden LPN Position: [facility] RN Member Role: Primary Care Nurse Name: Conrado Peña RN Position: [facility] RN Member Role: Primary Care Nurse Name: Vitaliy Marie RN Position: [facility] RN Member Role: Primary Care Nurse Name: Linda Mcbride RN Position: [facility] SN RN Member Role: Primary Care Nurse Name: Price Saeed RN Position: [facility] RN Member Role: Primary Care Nurse Name: Flavia Villegas RN Position: [facility] RN Member Role: Primary Care Nurse Name: Kelly Dodge RN Position: [facility] RN Member Role: Primary Care Nurse Care Team Related Persons Name: CARMINA AVILA Address: home [address] [place] [id number] Name: LORNE TINEO Address: [place] [address]
--- OUTSIDE RECORDS SUMMARY | 2023-09-25 11:10 | XMS_ITS | Continuity of Care Document ---
Author Organization [facility] ter Address [address] [place] [id number] Care Team Providers Care Carburetor Expert Name Role Phone Not on Staff, PCP Primary Care Physician Unavail able Encounter [facility] Date(s): 02/25/23 - 03/12/[address] [id number]- Discharge Disposition: Transfer Correction Care Attending Physician: Flori Leal MD Admitting Physician: Sandrine Prieto MD Referring Physician: Not on Staff, Referring MD [...] opioid drug. Start Date: 03/11/23 Status: Ordered diazepam 5 mg oral tablet 5 mg, 1, tablet, By Mouth, 2 times a day, PRN, for 5 days, # 10 tablet, Refills 0, Tot. Refills 0, Acute 03/17/23 12:22:00 EST, Spasm, 03/12/23 12:22:00 EST, Print Requisition, Partial fill upon patient request if the prescription is for a schedule II... Start Date: 03/12/23 Stop Date: 03/17/23 Status: Ordered Docusate Sodium Capsule 100 mg, [...] midodrine 5 mg oral tablet 15 mg, Tablet, By Mouth, 03/12/23 15:00:00 EST Start Date: 03/12/23 Stop Date: 03/12/23 Status: Completed MOM Liquid 30 mL, By Mouth, Every [...] opioid drug. Start Date: 03/11/23 Status: Ordered oxyCODONE 5 mg oral tablet 5 mg, 1, tablet, By Mouth, Every 6 hours, PRN, for 3 days, # 12 tablet, Refills 0, Tot. Refills 0, Acute 03/15/23 12:20:00 EST, for pain, 03/12/23 12:20:00 EST, Print Requisition, Partial fill upon patient request if the prescription is for a schedule... Start Date: 03/12/23 Stop Date: 03/15/23 Status: Ordered oxyCODONE 5 mg oral tablet 5 mg, Tablet, By Mouth, Every 6 hours, PRN for Pain , Moderate, Routine, 02/27/23 8:59:00 EST Start Date: 02/27/23 Stop Date: 03/13/23 Status: Discontinued pantoprazole 20 mg oral delayed release tablet [...] Active UTI (urinary tract infection) Confirmed Active Results Orders for Microbiology Reports Name Date Blood Culture 03/07/23 Urine Culture (URINE CULTURE) 02/24/23 Microbiology Reports TEST:Blood Culture STATUS:Auth (Verified) BODY SITE: SOURCE:Blood COLLECTED DATE/TIME:03/07/23 11:12 AM Blood Culture SPECIMEN DESCRIPTION : BLOOD NO SITE SPECIAL REQUESTS : NONE CULTURE : NO GROWTH 5 DAYS. REPORT STATUS : FINAL 03/12/2023 TEST:Urine Culture STATUS:Auth (Verified) BODY SITE: SOURCE:URINE COLLECTED DATE/TIME:02/24/23 5:27 PM Urine Culture SPECIMEN DESCRIPTION : URINE SPECIAL REQUESTS : NONE CULTURE : 50-100,000 COL/ML KLEBSIELLA PNEUMONIAE This isolate was identified using Maldi-TOF system These AST results were performed on the Vitek 2 ID and AST system REPORT STATUS : FINAL 02/27/2023 ORGANISM 50-100,000 COL/ML KLEBSIELLA PNEUMONIAE This isolate was identified using Maldi-TOF system These AST results were performed on the Vitek 2 ID and AST system METHOD MIN. INHIB. CONC. (MCG/ML) AMPICILLIN RESISTANT AMPICILLIN/SULBACTAM SUSCEPTIBLE CEFAZOLIN SUSCEPTIBLE CEFEPIME SUSCEPTIBLE CEFTRIAXONE SUSCEPTIBLE CIPROFLOXACIN SUSCEPTIBLE ERTAPENEM SUSCEPTIBLE GENTAMICIN SUSCEPTIBLE LEVOFLOXACIN SUSCEPTIBLE NITROFURANTOIN RESISTANT PIPERACILLIN/TAZOBAC SUSCEPTIBLE TRIMETH/SULFAMETHOX SUSCEPTIBLE Radiology Reports * Exam Date Time Procedure Performing Provider Status 02/24/23 2:[address] Abd/Pelvis W/ IV Contrast Only Lisa Delgado; Auth (Verified) Notes: (CT Abd/Pelvis W/ IV Contrast Only) Reason For Exam: Rigid abdomen, reportedly has not had a bowel movement in 2 weeks, history of MS;Other: RESULT: CT Abd/Pelvis W/ IV Contrast Only CT Abd/Pelvis W/ IV Contrast Only Hx of Present Illness: hx of MS, comes to ed for 10 days constipation, per pt usualyl goes daily, had had decrease PO intake r t worsening independence. pt states the pain is so bad i dont want to live anymore .; Reason: Other:; Rigid abdomen, reportedly has not had a bowel movement in 2 weeks, history of MS; Clinical Question(s): Bowel Perforation; Order Comment: TECHNIQUE: Spiral CT through the abdomen and pelvis with IV contrast formatted in 3 planes. 100 cc of Omnipaque 300 was administered intravenously. This study was performed without oral contrast. Weight-based protocol using automatic tube modulation was used to optimize exposure parameters. CTDIvol Body: 10.20 mGy, DLP Body: 523 mGy*cm. COMPARISON: 11/12/2022 FINDINGS: Evaluation of the intra-abdominal contents in detail is severely limited secondary to motion, Mottle artifact from adjacent upper extremity and lack of intra-abdominal fat. Messenger Office View Findings, Lines and Tubes: None. Visualized Chest: Suboptimal evaluation of lung bases secondary to motion. No focal opacity... No pleural effusion. The heart is normal in size. No pericardial effusion. Diaphragm: Normal. Liver: Normal. Gallbladder: No CT evidence of gallbladder pathology. Bile ducts: No biliary ductal dilation. Spleen: Normal. Pancreas: Normal. Adrenal glands: Similar, 2.5 cm right adrenal nodule, representing a adenoma. No suspicious lesion. Kidneys and ureters: No hydronephrosis, stones, or suspicious masses. Bladder: Valdez catheter tip in the bladder with gas in the anterior portion, likely related to instrumentation. Diffuse circumferential wall thickening of the urinary bladder,, despite underdistention, suspicious for cystitis versus bladder hypertrophy. Correlation with urinalysis recommended. Reproductive organs: Unremarkable Stomach, small bowel, and large bowel: Limited evaluation. Moderate stool retention throughout the colon. Multiple, fluid-filled nondilated loops of small bowel throughout the abdomen. Apparent wall thickening of the distal sigmoid colon (coronal image 65), probably secondary to underdistention however correlation with recent colonoscopy recommended to exclude an underlying lesion. Appendix: Partially visualized normal. Peritoneum and retroperitoneum: No ascites or pneumoperitoneum. No omental or mesenteric lesions. Lymph nodes: No definite lymphadenopathy seen within the constraints of the study. Blood vessels: Moderate atherosclerotic vascular calcification. No aortic aneurysm. No evidence of venous thrombosis. Abdominal and pelvic wall: Unremarkable. Bones: No acute abnormality. There is ill-defined sclerotic lesion in the left iliac bone measuringup to 1.9 cm, similar to the prior CT. IMPRESSION: 1. Evaluation of intra-abdominal contents is severely limited secondary to motion, artifact from patient's arms on the side and paucity of intra-abdominal fat. Within these limitations, no definite acute abnormality seen in the abdomen and pelvis. 2. Under distended urinary bladder with suspected diffuse circumferential wall thickening, could bedue to chronic bladder hypertrophy or cystitis. Please correlate with urinalysis to exclude acute cystitis. 3. Moderate stool retention throughout the colon common suggestive of constipation. Mild apparent focal circumferential thickening of the distal sigmoid colon may be due to underdistention or muscular hypertrophy of however correlation with recent colonoscopy recommended to exclude underlying lesion. 4. 4. 1.9 cm ill-defined sclerotic lesion in the left iliac bone, nonspecific. May consider correlation with nuclear bone scan to exclude bony metastasis. 5. Stable right adrenal adenoma. I have personally reviewed the images and I agree with this report. WSN: [id number] Ordering Physician: Melvin Lugo Dictated By: Loni Regan MD Dictated Date/Time: 02/24/23 3:04 pm Reviewed By: Peyton Mathis MD Signed By: Peyton Mathis MD Signed Date/Time: 02/24/23 3:09 pm Transcribed By: TRUNG Transcribed Date/Time: 02/24/23 2:40 pm Vital Signs Most recent to oldest [Reference Range]: 1 2 3 4 Weight 59.4 kg (03/02/23 5:40 AM) 59.9 kg (03/01/23 6:14 AM) 59.9 kg (02/28/23 4:06 AM) 59.9 kg (02/28/23 4:06 AM) Oxygen Saturation [94-100 %] 95 % (03/12/23 1:25 PM) 98 % (03/12/23 11:44 AM) 97 % (03/12/23 4:48 AM) Pulse Rate [55-90 bpm] 58 bpm (03/12/23 3:43 PM) 57 bpm (03/12/23 1:25 PM) 52 bpm *L* (03/12/23 11:44 AM) Blood Pressure [90-138/55-84 mm Hg] 93/55mm Hg (03/12/23 3:43 PM) 93/55mm Hg (03/12/23 1:25 PM) 83/50mm Hg *L* (03/12/23 11:44 AM) Respiratory Rate [16-30 br/min] 18 br/min (03/12/23 3:43 PM) 18 br/min (03/12/23 1:25 PM) 17 br/min (03/12/23 11:44 AM) Temperature [96.8-100.4 DegF] 97.5 DegF (03/12/23 1:25 PM) 97.8 DegF (03/12/23 11:44 AM) 97.3 DegF (03/12/23 4:48 AM) Liters per Minute 0 L/min (03/01/23 3:00 PM) 0 L/min (03/01/23 11:00 AM) 0 L/min (03/01/23 7:00 AM) Mode of Delivery (Oxygen) Room air (03/12/23 1:25 PM) Room air (03/12/23 11:44 AM) Room air (03/12/23 4:48 AM) Blood pressure sites Arm, right (03/12/23 1:25 PM) Arm, right (03/12/23 11:44 AM) Arm, left (03/12/23 11:02 AM) Temperature Route Oral (03/12/23 1:25 PM) Oral (03/12/23 11:44 AM) Axillary (03/12/23 4:48 AM) Weight Obtained Via Bed scale (03/02/23 5:40 AM) Bed scale (03/01/23 6:14 AM) Bed scale (02/28/23 4:06 AM) Social History Social History Type Response Smoking Status 5-9 cigarettes (betw een 1/4 to 1/2 pack)/day in last 30 days entered on: 03/25/18 Sex History and physical note * Greg Carrera MD: PERFORM Event Display: History and Physical Hospital Authored Date: Patient: ??JD FRAZIER ? Age:??52 Years?Sex:??Male?:??1970?? Chief Complaint/Reason for Consultation Constipation, depression,??poor oral intake History of Present Illness 52-year-old male with history of multiple sclerosis,??chronic spasticity, neurogenic bladder??requiring indwelling Valdez catheter??presents to the emergency room with??decreased oral intake, constipation,??passive suicidal ideation.?? The patient tells me that he had been residing at home??until robert roximately 2 months ago??when he had a fall out of his wheelchair and subsequently??was placed in rehab.?? He states the food at his rehab facility is??of a low quality and??he has no appetite for it.?? He has not been eating well??and feels he has been losing weight.?? Additionally??he has been con stipated for the last 1-2 weeks.?? He cannot tell me exactly when his last bowel movement was.?? However he denies any abdominal pain, vomiting, nausea.?? Additionally??he has been feeling depressed??and reportedly told staff at the rehab facility??that he wanted to .?? However,??this evening hetells me that??he did not really mean it??and that he was just frustrated.?? He does admit to feeling more depressed than??normal??due to his??rehab stay??and chronic illness.?? He denies any chest pain, shortness of breath, cough, fevers, chills. ?? EKG: sinus 87 bpm PVCs Review of Systems Constitutional:??fatigue Eyes:??No visual loss, blurred vision, double vision or yellow sclera ENT:??No hearing loss, sneezing, congestion, runny nose or sore throat. Respiratory:??No shortness of breath, cough or sputum production. Cardiovascular:??No chest pain, chest pressure or chest discomfort. No palpitations or pedal edema. Gastrointestinal:??poor oral intake??and constipation Genitourinary:??Valdez cath Neurologic:??chronic weakness and??spasticity x??4 Skin:??No rash or itching. Endocrine:??No reports of sweating. No cold or heat intolerance. No polyuria or polydipsia. Psychiatric:??feeling depressed Objective ? Vital Signs?? Temperature:??101.3 DegF??High (02/24/23 22:32:00) Temperature Route: Oral (02/24/23 22:32:00) Pulse Rate: 61 bpm (02/24/23 22:32:00) Respiratory Rate: 20 br/min (02/24/23 23:16:00) Systolic Blood Pressure: 97 mm Hg (02/24/23 22:32:00) Diastolic Blood Pressure: 62 mm Hg (02/24/23 22:32:00) Blood pressure sites: Arm, left (02/24/23 22:32:00) Mean Arterial Pressure: 74 mm Hg (02/24/23 22:32:00) Pulse Pressure: 35 mm Hg (02/24/23 22:32:00) Oxygen Saturation: 97 % (02/24/23 22:32:00) Mode of Delivery (Oxygen): Room air (02/24/23 22:32:00) Early Warning Score: 2 (02/24/23 23:17:19) ? Physical Exam Constitutional: Alert, in no distress. Mental Status: Oriented to person, place and time. Head: Normocephalic. Eyes: Pupils are equal, round and reactive to light. Extraocular muscles intact. Ear, Nose and Throat: Oropharynx clear, mucous membranes moist. Neck: Supple, Full range of motion. Respiratory: Clear to auscultation. No wheezing, rales or rhonchi. Cardiovascular: S1 S2 regular. No murmurs, rubs or gallops. Gastrointestinal: Abdomen soft, non-tender, non-distended. Normal bowel sounds.?? Neurologic: Cranial nerves II-XII grossly intact. power??5/5 bilateral upper??extremities with??increased tone.?? 1-2/5??bilateral??lower??extremities with??contractures and??increased??tone Skin: No rashes or lesions. No petechiae or purpura.?? Psychiatric: flat affect Assessment/Plan Decreased oral intake (R63.8):??. Dehydration (E86.0):? As noted above, he has been??eating very little at his rehab facility He attributes this to??a dislike of the food He appears clinically dehydrated Continue IV fluids Nutrition consult ? Constipation: Start bowel regimen Enema as needed ? Depression (F32.A):? He admits to feeling depressed recently??and did express some passive suicidal ideation although hedenies??active suicidal ideation presently?? psychiatry consult ? Multiple sclerosis (G35):? Chronic??weakness with??spasticity It appears he was prescribed baclofen but tells me he does not wish to take this ? Neurogenic bladder (N31.9):??. UTI (urinary tract infection) (N39.0):? Chronic indwelling Valdez catheter Possible UTI versus colonization We will treat with ceftriaxone??pending urine culture results ? VTE Prophylaxis:? Heparin subcu ?VTE Prophylaxis Assessment:??VTE Prophylaxis Ordered ?? Code Status:? Full code Discussed with patient the bedside ?Order Code Status:??Code Status Ordered ? Patient seen??02/24/2023 ?? Histories Allergies Allergies ?(Active and Proposed Allergies Only) NKA? (Severity: Unknown severity, Onset: Unknown) ? Past Medical History/Problem List Active Problems??(6) Wheelchair dependent MS (multiple sclerosis) Neurogenic bladder Chronic indwelling Valdez catheter Tobacco abuse ? Social History Currently residing in rehab Not actively smoking Denies alcohol ? Family History Negative for CAD ? Medications Home Medications Finasteride (finasteride 5 mg oral tablet)?1?tab(s)?5?Milligram?By Mouth?Daily Oxycodone (oxyCODONE 5 mg oral tablet)?5?Milligram?1?tablet?By Mouth?Every 6 hours?as needed?for pain Tamsulosin (Flomax 0.4 mg oral capsule)?0.4?Milligram?By Mouth?Daily at bedtime ? Results Recent Labs BLOOD COUNT & DIFF WBC 5.1 k/mm3 ()?? 02/24/2023 13:31 RBC 4.29 m/mm3 (Low)?? 02/24/2023 13:31 Hgb 12.4 Gm/dL (Low)?? 02/24/2023 13:31 Hct 36.1 % (Low)?? 02/24/2023 13:31 MCV 84.1 femtoliters ()?? 02/24/2023 13:31 MCH 28.9 pg ()?? 02/24/2023 13:31 MCHC 34.3 g/dL ()?? 02/24/2023 13:31 Platelet Count 271 k/mm3 ()?? 02/24/2023 13:31 RDW-SD 42.5 femtoliters ()?? 02/24/2023 13:31 MPV 8.9 femtoliters (Low)?? 02/24/2023 13:31 Nucleated RBC (Automated) 0.0 #/100 WBC'S ()?? 02/24/2023 13:31 Abs. NRBC 0.0 k/mm3 ()?? 02/24/2023 13:31 Abs. Neut 3.2 k/mm3 ()?? 02/24/2023 13:31 Abs. Lymph 0.7 k/mm3 (Low)?? 02/24/2023 13:31 Abs. [place] 1.1 k/mm3 ()?? 02/24/2023 13:31 Abs. Eo 0.1 k/mm3 ()?? 02/24/2023 13:31 Abs. Baso 0.0 k/mm3 ()?? 02/24/2023 13:31 Neut % 63.2 % ()?? 02/24/2023 13:31 Lymph % 13.3 % (Low)?? 02/24/2023 13:31 [place] % 21.5 % (High)?? 02/24/2023 13:31 Eos % 1.2 % ()?? 02/24/2023 13:31 Baso % 0.6 % ()?? 02/24/2023 13:31 Imm Gran 0.2 % ()?? 02/24/2023 13:31 Abs. Imm Gran 0.0 k/mm3 ()?? 02/24/2023 13:31 ?? CHEM GENERAL Sodium 134 mmol/L ()?? 02/24/2023 13:31 Potassium 4.1 mmol/L ()?? 02/24/2023 13:31 Chloride 97 mmol/L (Low)?? 02/24/2023 13:31 Bicarbonate Level 26 mmol/L ()?? 02/24/2023 13:31 Anion Gap 11 ()?? 02/24/2023 13:31 Glucose Level 84 mg/dL ()?? 02/24/2023 13:31 BUN 16 mg/dL ()?? 02/24/2023 13:31 Creatinine-Blood 0.8 mg/dL ()?? 02/24/2023 13:31 Estimated GFR Creatinine 109 ML/MIN/1.73 M2 ()?? 02/24/2023 13:31 Calcium 9.1 mg/dL ()?? 02/24/2023 13:31 Magnesium 1.7 mg/dL ()?? 02/24/2023 13:31 ?? ENDOCRINE/TUMOR MARKER TSH 0.30 uIU/mL (Low)?? 02/24/2023 13:31 Free T4 1.40 ng/dL ()?? 02/24/2023 13:31 ?? UA/URINALYSIS Appear/Color, Urine YELLOW ()?? 02/24/2023 17:27 Specific [place], Urine >1.050 (High)?? 02/24/2023 17:27 pH, Urine 6.0 ()?? 02/24/2023 17:27 Albumin, Urine 2+ (Abnormal)?? 02/24/2023 17:27 Glucose, Urine NEGATIVE ()?? 02/24/2023 17:27 Ketones, Urine 2+ (Abnormal)?? 02/24/2023 17:27 Bilirubin, Urine NEGATIVE ()?? 02/24/2023 17:27 Hemoglobin, Urine 3+ (Abnormal)?? 02/24/2023 17:27 Nitrite, Urine NEGATIVE ()?? 02/24/2023 17:27 Leukocyte, Urine NEGATIVE ()?? 02/24/2023 17:27 Urobilinogen NORMAL mg/dL ()?? 02/24/2023 17:27 WBC's, Urine 18 /HPF (High)?? 02/24/2023 17:27 RBC's, Urine 136 /HPF (High)?? 02/24/2023 17:27 Squamous Epith 1 /HPF ()?? 02/24/2023 17:27 Mucus SLIGHT /LPF ()?? 02/24/2023 17:27 Hold Urine Culture Testing available 48 hours from time of collection. ()?? 02/24/2023 17:27 ? EKG study * Event Display: EKG Authored Date: * Event Display: ECG 12-Lead Authored Date: Please click on pdf link to open report * Event Display: ECG 12-Lead Authored Date: Ventricular Rate: 87 BPM Atrial Rate: 87 BPM P-R Interval: 154 ms QRS Duration: 82 ms Q-T Interval: 434 ms QTC Calculation(Bazett): 522 ms P [place]: 85 degrees R [place]: 41 degrees T [place]: 69 degrees Normal sinus rhythm Prolonged QT Abnormal ECG When compared with ECG of 02-DEC-2022 14:39, Nonspecific T wave abnormality now evident in Inferior leads T wave amplitude has decreased in Anterior leads QT has lengthened Confirmed by SHERINE MURDOCK MD ([id number]) on 02/24/2023 10:22:08 PM [place]: SHERINE MURDOCK MD Heart * Event Display: Echocardiogram - Complete Authored Date: [id number] Transthoracic Echocardiography Report (TTE) Patient Demographics Patient Name JD FRAZIER Date of Study 02/27/2023 Corporate Gender Male Facility Race Ethnicity Date of 1970 Height: 70 inches Age 52 year(s) Weight: 167.57 pounds Accession Number [id number] BSA: 1.94 m2 Room Number [id number] BMI: 24.04 kg/m2 Referring Physician Not on Staff Interpreting Leno Rapp MD Attending MD Physician Front Office Spec Guillermina Fritz RDCS Indications Hypotension. Clinical History Multiple sclerosis Study Data Type of Study TTE procedure:Echo Complete-(Doppler, Colorflow) with Contrast. Procedure Information:Definity was administered by Guillermina Fritz RDCS. Study Date02/27/2023 Start Time: 12:09 PM Study Location: [facility] Adult Echo Study Status: Echo lab Patient Status: Routine Technical Quality: Technically difficult due to body habitus. Blood Pressure:96/58 mmHg EKG: Normal sinus rhythm HR: 62 bpm Contrast Medium: Definity. Amount - 2 ml 2D Measurements LV Diastolic Dimension: 4.86 cm LV Systolic Dimension: 3.63 cm LV Septum Diastolic: 0.74 cm LV PW Diastolic: 0.75 cm AO Root Dimension: 3.21 cm LA Dimension: 3.1 cm LA ESV (BP):32.3 ml LVOT Stroke Volume: 78.15 ml LA ESV Index: 17 ml/m2 Stroke Volume Index40.28 ml/m2 LVOT: 2.42 cm Cardiac Index:2.5 l/min/m2 Doppler Measurements AV Peak Velocity: 92.3 cm/s MV Peak E-Wave: 51.7 cm/s AV Peak Gradient: 3.41 mmHg MV Peak A-Wave: 60.6 cm/s AV Mean Gradient: 2 mmHg MV E/A Ratio: 0.85 AV VTI:21 cm MV P1/2t: 77 msec LVOT Peak Velocity: 84 cm/s LVOT VTI17 cm MV Deceleration Time: 262 msec AV Area (Continuity):3.72 cm2 MV Area (PHT): 2.86 cm2 PV Peak Velocity: 75.3 cm/s PV Peak Gradient: 2.27 mmHg E' Septal Velocity: 7.94 cm/s E' Lateral Velocity: 13.8 cm/s E/Med E':6.476137 E/Lat E':3.833625 Cardiac Anatomy Left Ventricle/Interventricular Septum The left ventricle is poorly visualized and not improved with contrast enhancement. The apical views are foreshortened. The LV systolic function is mildly reduced . The left ventricular ejection fraction is 50 %. Image quality is inadequate to assess regional wall motion. Normal diastolic function. Left Atrium/Interatrial Septum The left atrium is normal in size. Aortic Valve The aortic valve is trileaflet . The aortic valve appears mildly calcified. There is no aortic stenosis. There is no aortic regurgitation. Mitral Valve The mitral valve opening is normal. There is trivial mitral regurgitation. Aorta The aortic root is normal in size. The ascending aorta is not well visualized. Right Ventricle The right ventricle is normal in size. Right ventricular systolic function appears preserved. Right Atrium The right atrium is normal in size. Pulmonic Valve The pulmonic valve appears grossly normal. Tricuspid Valve The tricuspid valve is grossly normal. Pumonary Artery An accurate pulmonary artery pressure could not be obtained. Venous Structures The inferior vena cava appears normal. Pericardium/Extracardiac There is no significant pericardial effusion. Summary The left ventricle is poorly visualized and not improved with contrast enhancement. The apical views are foreshortened. The LV systolic function is mildly reduced . The left ventricular ejection fraction is 50 %. Image quality is inadequate to assess regional wall motion. Normal diastolic function. The aortic valve is trileaflet . The aortic valve appears mildly calcified. There is no aortic stenosis. There is no aortic regurgitation. The right ventricle is normal in size. Right ventricular systolic function appears preserved. Comparison No prior study available for comparison. Signature * Event Display: Echocardiogram - Complete Authored Date: Cardiology * Event Display: Cardiac Rhythm Strips Authored Date: * Event Display: Cardiac Rhythm Strips Authored Date: Hospital Progress note * Dayday Norris RN: PERFORM, SIGN, VERIFY Event Display: Progress Note Hospital Authored Date: [id number] Patient: JD FRAZIER Age: 52 years Sex: Male : 1970 Associated Diagnoses: None Author: Dayday Norris RN Findings Problem Related to Alteration in Comfort : Alteration in Comfort/new 03/12/2023 3:25 EST Alteration in Comfort Related to Disease process Goals & Outcomes: Comfort Pt will report acceptable level of comfort & pain control Interventions Implemented: Comfort Assess pain using appropriate pain scale/tools, Assess aggravating factors & prevent them accordingly, Assess alleviating factors & promote them accordingly BH Goals/Interventions, Comfort Yes Comfort, Problem Start 03/06/2023 1:47 Reviewed plan with, Comfort Patient Patient Progression, Comfort Pt progressing according to plan Comfort, Problem Ongoing Yes . Alteration in Gastrointestinal : Alteration in Gastrointestinal Func/new 03/12/2023 3:25 EST Alteration in GI status Related to Constipation Goals & Outcomes, Gastrointestinal Establish a regular pattern of elimination for pt, Pt will maintain adequate GI function appropriate for pt, Pt will maintain normal elimination patterns Interventions, Gastrointestinal Assess/monitor bowel pattern, bowel sounds, flatus, Assess/monitor number of bowel movements, Assess/monitor color, quantity, quality, consistency of stoo, Assess/monitor pt for nausea, vomiting, Assess/monitor intake & output, Assess if pt tolerating diet BH Goals/Interventions, Gastrointestinal No Gastrointestinal, Problem Start 02/25/2023 11:57 Reviewed plan with, Gastrointestinal Patient Patient Progression, Gastrointestinal Pt progressing according to plan Gastrointestinal, Problem Resolved 03/07/2023 10:47 . Narrative/Incidental Patient A&O X3 on room air. Patient denies nausea/vomiting, numbness/tingling, and shortness ofbreath. Patient complains of pain bilaterally in lower extremities, but declined PRN pain medication. Patient repositioned several times an hour at his request. Able to make needs known. [place] within reach, but patient refuses to use call [place], and instead yells out into the [place] for help. Patient is alert and oriented, but is impulsive. See Biophysical for details. Safety measures in place. Bed locked in lowest position. Will continue to monitor. . Discharge Information Case Management Discharge Plan : Case Management Discharge Plan Data 03/11/2023 14:57 EST Discharge Level of Care at Discharge shelter facility Discharge Nursing Homes/Rehab Facilities [facility] Discharge Transportation Arranged [facility] Med Response [address] [place] [id number] [phone] Discharge Arranged Transport Date/Time 03/11/2023 17:00 Mode of Transportation Arranged Ambulance Name of Person Notified of Transfer DC Plan and IMM delivered to bedside * Chyna Gooden LPN: VERIFY, PERFORM, SIGN Event Display: Progress Note Hospital Authored Date: Patient: JD FRAZIER Age: 52 years Sex: Male : 1970 Associated Diagnoses: None Author: Chyna Gooden LPN Findings Problem Related to Alteration in Comfort : Alteration in Comfort/new 03/11/2023 3:34 EST Alteration in Comfort Related to Disease process Goals & Outcomes: Comfort Pt will report acceptable level of comfort & pain control Interventions Implemented: Comfort Assess pain using appropriate pain scale/tools, Assess aggravating factors & prevent them accordingly, Assess alleviating factors & promote them accordingly Goals/Interventions, Comfort Yes Comfort, Problem Start 03/06/2023 1:47 Reviewed plan with, Comfort Patient Patient Progression, Comfort Pt progressing according to plan Comfort, Problem Ongoing Yes . Nursing Data Vital Signs : VITAL SIGNS SECTION 03/10/2023 23:00 EST Temperature 98.1 DegF Temperature Route Oral Pulse Rate 61 bpm Respiratory Rate 18 br/min Systolic Blood Pressure 100 mm Hg Diastolic Blood Pressure 55 mm Hg Blood pressure sites Arm, right Mean Arterial Pressure 70 mm Hg Pulse Pressure 45 mm Hg Oxygen Saturation 97 % Mode of Delivery (Oxygen) Room air . Narrative/Incidental No acute event overnight. . * Franklin STAPLES, Juan: PERFORM, MODIFY Event Display: Progress Note Hospital Authored Date: Patient: ??JD FRAZIER ? Age:??52 Years?Sex:??Male?:??1970?? Chief Complaint I've been depressed my whole life. Reason for consult: depression, SI consult requested by: Greg Carrera MD History of Present Illness Asked to follow-up as he is refusing SNF placement stating that he can go home and he will be okay.?? Psychiatry does not feel that he has the insight to make this decision and based on PT notes he is requiring max assist for bed mobility. ?? He still complains of painful spasms though he is not always asking for his as needed??diazepam. Physical Exam Vitals & Measurements T:??97.3?F?? HR:??66??(Peripheral)?? RR:??18?? BP:??110/56?? SpO2:??99%?? WT:??59.4??kg?? He is pleasant and appropriate. ?? Examination of lower extremities reveals??severe hip and knee flexion contractures with scissoring.?? Painful spasms with any ranging. ?? Assessment/Plan 52-year-old man with multiple sclerosis??resulting essentially in??paraplegia with severe spasticity. ?? Spasticity:??When I??saw him in November??I was able to convince him to try baclofen, we got him up to 10 mg three times a day??and they were inconsistent reports??of not tolerating it.?? He told me itwas stopped in the past because it made his spasticity worse??(which is almost certainly not the case). ?? He is responding well to diazepam but not always taking it. ?? Tizanidine would typically be an appropriate neck step??but he has been very hypotensive. ?? Suggest starting dantrolene sodium??25 mg??three times a day??and rechecking??ALT and AST in 1 week. Currently??slight elevation in AST.?? If stable??could increase it to 50 mg three times a day (andcheck again 1-2 weeks later then perhaps quarterly.?? Would not go above that dose??due to??concern? ?for possible liver toxicity.?After that could consider??scheduling some diazepam. ?? If he??would be reliable for refills, he would be a very good candidate for an intrathecal baclofenpump but he is not interested. ?? Bladder:??Would maintain valdez for now. ?? Dispo: Back to SNF He insists??that he can go home and managed to transfer to his wheelchair??however he is max assisthere for bed mobility??and any other mobility.?? He claims that he can transfer with a slide board to a wheelchair. To be fruitful to have PT??try him with a slide board??perhaps to convince him??that he really cannot go home. ?? I told him that I understand his reluctance to go to a SNF??but there really is no other safe option. ?? Would see if??it is possible for him to go to [facility]??as I mentioned to him the excellent??patient reactions to that facility. ?? D/w??Dr. Lugo Problem List/Past Medical History Ongoing Fall from wheelchair MS (multiple sclerosis) Rhabdomyolysis Urinary retention UTI (urinary tract infection) Weakness Procedure/Surgical History No qualifying data available. Hospital Medications Medications (19) Active SCHEDULED: (14) Dantrolene 25 mg Capsule (dantrolene 25 mg oral capsule) ??25 mg, By Mouth, 3 times a day Docusate Sodium 100 mg Capsule (Docusate Sodium Capsule) ??100 mg 1 capsule, By Mouth, 2 times a day Finasteride 5 mg Tablet (finasteride 5 mg oral tablet) ??5 mg, By Mouth, Daily Fludrocortisone 0.1 mg Tablet (fludrocortisone 0.1 mg oral tablet) ??0.1 mg, By Mouth, Daily Heparin 5000 units/mL Inj (1 mL) (Heparin Inj) ??5,000 units 1 mL, Subcutaneous Injection, 3 times a day Lidocaine 5% Topical Patch (Lidocaine 5% Patch) ??1 each, Topically, Daily Midodrine 5 mg Tablet (midodrine 5 mg oral tablet) ??15 mg, By Mouth, 3 times a day Multivitamin Therapeutic / Minerals Tablet (Multivit Therapeutic/Minerals Tablet) ??1 tablet, By Mouth, Daily NaCl 0.9% Flush 3ml (NaCL 0.9% Flush) ??3 mL, IV Push, Every 8 hours Pantoprazole 20 mg EC Tablet (pantoprazole 20 mg oral delayed release tablet) ??20 mg, By Mouth, Daily Polyethylene Glycol 17 Gm Powder (MiraLax Powder) ??17 Gm 1 pack/packet, By Mouth, Daily Remove Patch (Remove Lidocaine Patch) ??1 each, Topically, Daily at bedtime Senna Tablet ??8.6 mg 1 tablet, By Mouth, 2 times a day Thiamine 100 mg Tablet (thiamine 100 mg oral tablet) ??100 mg, By Mouth, 2 times a day CONTINUOUS: (0) PRN: (5) Acetaminophen 325 mg Tablet (Acetaminophen Tablet) ??650 mg, By Mouth, Every 4 hours Diazepam 5 mg Tablet (Diazepam Tablet) ??5 mg, By Mouth, 2 times a day Melatonin 3 mg Tablet (Melatonin Tablet) ??3 mg, By Mouth, Daily at bedtime NaCl 0.9% Flush 3ml (NaCL 0.9% Flush) ??3 mL, IV Push, Every 8 hours OxyCODONE 5 mg IR Tablet (oxyCODONE 5 mg oral tablet) ??5 mg, By Mouth, Every 6 hours Patient Instructions We recommend that you obtain mental health follow-up to establish??psychotherapy. Please contact one of the following [facility] clinics for a therapy appointment (let them know you??need virtual therapy visits):?? [facility]: [facility]: [facility] [place]: [facility] If you are experiencing a mental health crisis, you can call the [facility] Crisis Hotline at [phone]. Lab Results PM&R Labs WBC: 11 k/mm3 (03/09/23) Platelet Count: 447 k/mm3 (03/09/23) Sodium: 139 mmol/L (03/09/23) BUN: 13 mg/dL (03/09/23) Creatinine-Blood: 0.8 mg/dL (03/09/23) AST (SGOT):??49 units/L??High (02/25/23) ALT (SGPT): 24 units/L (02/25/23) Note * Jocelyn Meneses RN: PERFORM Event Display: Discharge/Transfer Note Hospital Authored Date: Nursing Discharge Note Entered On: 03/12/2023 16:53 EST Performed On: 03/12/2023 16:53 EST by Jocelyn Meneses RN Nursing Discharge Note 2 Discharge Time : 03/12/2023 16:53 EST Discharge Level of Care at Discharge : shelter facility Discharge Nursing Homes/Rehab Facilities : [facility] Patient Left Unit Via : Ambulance Patient Accompanied Off Unit with : Ambulance/Chair Van Personnel Handover Given to Transport Personnel : Yes DC Instructions Provided & Signed by Pt : Yes Patient Understands D/C Instructions : Yes Verbalized Understanding of D/C Plan By : Patient Patient Instructions Discharge Signed : No Did Pt have Specialty Bed or Wound Vac : Yes Jocelyn Meneses RN - 03/12/2023 16:53 EST * Flori Leal MD: PERFORM Event Display: Discharge/Transfer Note Hospital Authored Date: Patient: ??JD FRAZIER ? Age:??52 Years?Sex:??Male?:??1970?? Patient Information Discharge Location: S2 Primary Care Physician: Not on Staff, PCP Admit Date/Time: 02/25/23 15:01 Discharge Disposition Discharge Disposition: Detention Facility/Rehab Discharge Diagnosis ?? Impaired mobility and activities of daily living (Z74.09) Spasticity (R25.2) Decreased oral intake (R63.8) Dehydration (E86.0) Depression (F32.A) Hypotension (I95.9) Multiple sclerosis (G35) Neurogenic bladder (N31.9) UTI (urinary tract infection) (N39.0) ?? _ Discharge Medications ?? Acetaminophen (acetaminophen 325 mg oral tablet)?650?Milligram?2?tablet?By Mouth?Every 4 hours?as needed?pain/fever >100F Bisacodyl (bisacodyl 10 mg rectal suppository)?1?suppository(ies)?10?Milligram?Rectally?Every 72 hours?as needed?if no BM in 3 days Dantrolene (dantrolene 25 mg oral capsule)?25?Milligram?By Mouth?3 times a day Diazepam (diazepam 5 mg oral tablet)?5?Milligram?1?tablet?By Mouth?2 times a day?as needed?for 5?Days?Spasm Docusate (Docusate Sodium Capsule)?100?Milligram?1?capsule?By Mouth?2 times a day Fludrocortisone (fludrocortisone 0.1 mg oral tablet)?0.2?Milligram?By Mouth?Daily Lidocaine Topical (lidocaine 5% topical film)?Topically?Daily Melatonin (melatonin 3 mg oral tablet)?3?Milligram?By Mouth?Daily at bedtime?as needed?Insomnia Midodrine (midodrine 5 mg oral tablet)?15?Milligram?By Mouth?3 times a day Milk of Magnesia (MOM Liquid)?30?Milliliter?By Mouth?Every 72 hours?as needed?if no BM in 3 days Multivitamin With Minerals (Multivit Therapeutic/Minerals Tablet)?1?tab(s)?By Mouth?Daily Oxycodone (oxyCODONE 5 mg oral tablet)?5?Milligram?1?tablet?By Mouth?Every 6 hours?as needed?for 3?Days?for pain Pantoprazole (pantoprazole 20 mg oral delayed release tablet)?20?Milligram?By Mouth?Daily Senna (senna 187 mg oral tablet)?1?tab(s)?8.6?Milligram?By Mouth?2 times a day Thiamine (thiamine 100 mg oral tablet)?100?Milligram?By Mouth?2 times a day ? Medications Started ?? Dantrolene As needed??diazepam Midodrine Fludrocortisone Bowel regimen Medications Discontinued Flomax, finasteride Doses Changed None Allergies Allergies ?(Active and Proposed Allergies Only) NKA? (Severity: Unknown severity, Onset: Unknown) ? PCP Follow-Up/Heads-Up ?? Outpatient neurology??follow-up ?? Outpatient PMR follow-up ?? Needs to check??liver function test in 5 days as has been started on diet ?? Future Appointments Thursday 1:00 PM EST ?? With: London STAPLES, Darrel Urias Where: [facility] [address] [facility] [address] [place] [address]- Status: Pending Thursday 1:00 PM EST ?? With: Sami STAPLES, Geo Novak Where: [facility] [address] [place] [id number]- Status: Pending Hospital Course ?? 52-year-old male with history of multiple sclerosis, chronic spasticity, neurogenic bladder requiring indwelling Valdez catheter presents to the emergency room with decreased oral intake, constipation, passive suicidal ideation. ?? Adrenal insufficiency (E27.40):??ruled out Hypotension (I95.9):??. initially felt due to dehydration or sepsis but still hypotensive despite IVF and appropriate antibiotic coverage for UTI Cortisol??was borderline low Seen by endocrinology. ACTH was low normal but not clear whether patient received exogenous steroids before this s/p hydrocortisone 100 mg IV x1 hydrocortisone was weaned and now discontinued by endocrinology ACTH stim test on 03/09. results not consistent with adrenal insufficiency Even when BP recorded as low has not had signs of hypoperfusion, has been mentating well. no lacticacidosis. this could be sec to autonomic dysfunction. He is mostly bedbound Despite midodrine and fludrocortisone???blood pressure has still been low??mostly in 80s??and givenhe has no other symptoms??and his labs were okay??this is likely his new baseline Plan Midodrine to 15mg TID Fludrocortisone 0.2mg daily?? Discontinued??Flomax and finasteride ?? Decreased oral intake (R63.8):??. Dehydration (E86.0):??. he has been eating very little at his rehab facility He attributes this to a dislike of the food Nutrition consulted patient reports good PO intake at present ?? Depression (F32.A):?? He admits to feeling depressed recently and did express some passive suicidal ideation although he denies active suicidal ideation presently psychiatry consult appreciated recommended OP psychotherapy Psychiatry did see patient again in 03/10 and has been deemed to lack??capacity to refuse a safe discharge plan, so HCP invoked ?? Multiple sclerosis (G35):?? Chronic weakness with spasticity failed several meds Seen by PMR and added dantrolene Neurology??will arrange for outpatient follow-up Plan Dantrolene 3 times a day???needs to check liver function test in 5 days As needed diazepam As needed oxycodone for pain Outpatient neurology and PMR follow-up ?? Neurogenic bladder (N31.9):??. UTI (urinary tract infection) (N39.0):??. Chronic indwelling Valdez catheter Possible UTI jolene given fever, hypotension s/p 5 days of IV antibiotics Objective ?? no overnight event Patient denies any new complaints He is not happy about having to go back to usp facility but at this time he seems to understand that it is not safe for him to go home. ??Also says he spoken to his??cousin Marissa? Blood pressures has been low mostly in 80s???he has no new symptoms???denies dizziness lightheadedness chest pain or shortness of breath mostly has been lying in bed? discussed briefly with Dr. Callahan from PMR who had seen the patient earlier???at this time he does not think dantrolene??causes much hypertension and his blood pressure was low open before we started it so should be okay to continue for now. Vital Signs?? Temperature: 97.8 DegF (03/12/23 11:44:00) Temperature Route: Oral (03/12/23 11:44:00) Pulse Rate:??52 bpm??Low (03/12/23 11:44:00) Respiratory Rate: 17 br/min (03/12/23 11:44:00) Systolic Blood Pressure:??83 mm Hg??Low (03/12/23 11:44:00) Diastolic Blood Pressure:??50 mm Hg??Low (03/12/23 11:44:00) Blood pressure sites: Arm, right (03/12/23 11:44:00) Mean Arterial Pressure: 61 mm Hg (03/12/23 11:44:00) Pulse Pressure: 33 mm Hg (03/12/23 11:44:00) Oxygen Saturation: 98 % (03/12/23 11:44:00) Mode of Delivery (Oxygen): Room air (03/12/23 11:44:00) Early Warning Score: 3 (11/30/23 11:50:40) ? . Physical Exam ?? Lying flat in bed, no acute distress at rest Awake alert oriented x3 Chest is clear to auscultation Has Valdez catheter Consultants PMR Pending Results Add On Lab Order ordered on 02/24/2023 Add On Lab Order ordered on 02/25/2023 Add On Lab Order ordered on 02/27/2023 Add On Lab Order ordered on 03/08/2023 Blood Culture ordered on 03/07/2023 Patient Instructions We recommend that you obtain mental health follow-up to establish??psychotherapy. Please contact one of the following [facility] clinics for a therapy appointment (let them know you??need virtual therapy visits):?? [facility]: [facility]: [facility]: [facility] If you are experiencing a mental health crisis, you can call the [facility] Crisis Hotline at [phone]. Post Discharge Care Diet: ??Regular Diet ?? Activity: ??as tolerated ?? Code Status: ??Limited Resuscitation No Intubation & Mechanical Ventilation Other Comfort Measures: attempt resuscitation ?? Home Health Face to Face ^HomeHealthFTF Results Discharge Labs BLOOD COUNT & DIFF WBC 11.0 k/mm3 ()?? 03/09/2023 07:40 RBC 3.61 m/mm3 (Low)?? 03/09/2023 07:40 Hgb 10.6 Gm/dL (Low)?? 03/09/2023 07:40 Hct 32.0 % (Low)?? 03/09/2023 07:40 MCV 88.6 femtoliters ()?? 03/09/2023 07:40 MCH 29.4 pg ()?? 03/09/2023 07:40 MCHC 33.1 g/dL ()?? 03/09/2023 07:40 Platelet Count 447 k/mm3 ()?? 03/09/2023 07:40 RDW-SD 51.6 femtoliters (High)?? 03/09/2023 07:40 MPV 9.2 femtoliters (Low)?? 03/09/2023 07:40 Nucleated RBC (Automated) 0.0 #/100 WBC'S ()?? 03/09/2023 07:40 Abs. NRBC 0.0 k/mm3 ()?? 03/09/2023 07:40 Abs. Neut 1.6 k/mm3 ()?? 02/28/2023 02:54 Abs. Lymph 1.6 k/mm3 ()?? 02/28/2023 02:54 Abs. [place] 0.3 k/mm3 (Low)?? 02/28/2023 02:54 Abs. Eo 0.3 k/mm3 ()?? 02/28/2023 02:54 Abs. Baso 0.0 k/mm3 ()?? 02/28/2023 02:54 Neut % 42.8 % (Low)?? 02/28/2023 02:54 Lymph % 41.8 % ()?? 02/28/2023 02:54 [place] % 7.7 % ()?? 02/28/2023 02:54 Eos % 6.9 % (High)?? 02/28/2023 02:54 Baso % 0.5 % ()?? 02/28/2023 02:54 Imm Gran 0.3 % ()?? 02/28/2023 02:54 Abs. Imm Gran 0.0 k/mm3 ()?? 02/28/2023 02:54 ?? CHEM GENERAL Sodium 139 mmol/L ()?? 03/09/2023 07:40 Potassium 4.7 mmol/L ()?? 03/09/2023 07:40 Chloride 102 mmol/L ()?? 03/09/2023 07:40 Bicarbonate Level 31 mmol/L (High)?? 03/09/2023 07:40 Anion Gap 6 ()?? 03/09/2023 07:40 Glucose Level 89 mg/dL ()?? 02/25/2023 02:06 BUN 13 mg/dL ()?? 03/09/2023 07:40 Creatinine-Blood 0.8 mg/dL ()?? 03/09/2023 07:40 Estimated GFR Creatinine 108 ML/MIN/1.73 M2 ()?? 03/09/2023 07:40 Calcium 9.1 mg/dL ()?? 02/24/2023 13:31 Phosphorus 3.8 mg/dL ()?? 03/05/2023 02:12 Magnesium 2.0 mg/dL ()?? 03/05/2023 02:12 Albumin 3.3 Gm/dL (Low)?? 03/08/2023 00:19 AST (SGOT) 49 units/L (High)?? 02/25/2023 02:06 ALT (SGPT) 24 units/L ()?? 02/25/2023 02:06 Bilirubin, Total 0.3 mg/dL ()?? 02/25/2023 02:06 Lactate 1.3 mmol/L ()?? 03/09/2023 07:40 ? ENDOCRINE/TUMOR MARKER TSH 0.30 uIU/mL (Low)?? 02/24/2023 13:31 Free T4 1.40 ng/dL ()?? 02/24/2023 13:31 Cortisol Level 14.4 ??g/dL ()?? 03/09/2023 07:40 Cortisol 30 Min Post 18.5 ??g/dL ()?? 03/09/2023 10:14 Cortisol 60 Min Post 21.3 ??g/dL ()?? 03/09/2023 10:44 ACTH Corticotropin 13 ()?? 03/09/2023 07:40 ?? UA/URINALYSIS Appear/Color, Urine YELLOW ()?? 02/24/2023 17:27 Specific [place], Urine >1.050 (High)?? 02/24/2023 17:27 pH, Urine 6.0 ()?? 02/24/2023 17:27 Albumin, Urine 2+ (Abnormal)?? 02/24/2023 17:27 Glucose, Urine NEGATIVE ()?? 02/24/2023 17:27 Ketones, Urine 2+ (Abnormal)?? 02/24/2023 17:27 Bilirubin, Urine NEGATIVE ()?? 02/24/2023 17:27 Hemoglobin, Urine 3+ (Abnormal)?? 02/24/2023 17:27 Nitrite, Urine NEGATIVE ()?? 02/24/2023 17:27 Leukocyte, Urine NEGATIVE ()?? 02/24/2023 17:27 Urobilinogen NORMAL mg/dL ()?? 02/24/2023 17:27 WBC's, Urine 18 /HPF (High)?? 02/24/2023 17:27 RBC's, Urine 136 /HPF (High)?? 02/24/2023 17:27 Squamous Epith 1 /HPF ()?? 02/24/2023 17:27 Mucus SLIGHT /LPF ()?? 02/24/2023 17:27 Hold Urine Culture Testing available 48 hours from time of collection. ()?? 02/24/2023 17:27 ? 35_ minutes spent on discharge * Event Display: Discharge/Transfer Note Hospital Authored Date: * Izabela Peres RN: PERFORM Event Display: Patient Education/Instruction Authored Date: Inpatient Adult Discharge Instructions [address] [address] Name: JD FRAZIER : 1970 Visit: 02/25/2023 15:01:00 Current Date: 03/12/2023 15:59 Account: [id number] Inpatient Adult Discharge Instructions We would like to thank you for allowing us to assist you with your healthcare needs. The following includes patient education materials and information regarding your injury/illness. Our entire staffstrives to provide an excellent experience for our patients and their families. PLEASE ENSURE YOU FOLLOW-UP PER THE INSTRUCTIONS BELOW! ?? YOUR OPINION IS IMPORTANT TO US! Please complete the survey you may receive by mail or email. Your feedback will be used to make improvements to the healthcare experiences of our patients and their families. Surveys are administered by [employer] ?? If further treatment with your primary care physician or another doctor is recommended, it is important for you to keep the appointment. Call your primary care physician or return to the Emergency Department immediately if your condition worsens, fails to improve, or new symptoms develop. If you need to find a doctor, you can call [facility] for a referral at [phone] or toll free at [phone]) or log in to [email or web address].. ?? [facility], in keeping with [facility] guidance, no longer requires face masks for staff, patientsor visitors in most situations. Similiar to time spent indoors at other locations, there is the chance that you were exposed to repiratory viruses during your time with us (such as flu or COVID-19). If you develop symptoms concerning for a viral respiratory infection, please seek testing (and treatment if indicated) from your medical provider or home test kit. ?? You can view and manage your care through the patient portal or by using a health care robert of your choosing. [employer] is a website that allows you to securely view your medical information including your hospital discharge summary, office visit summaries, medications and follow-up visits. You can also request appointments, renew medications, and request access to your medical information using a health care robert of your choosing, or just ask a question. You can enroll at [email or web address] or register during your next office visit. You have been discharged from [facility], Patient Care Unit: S3. If you have any questions regarding these instructions after you leave, please call us and we will be happy to assist you. [facility] Your Care Team Attending Physician Elvis STAPLES, Flori Consulting Providers Yohana STAPLES, Soraya; Glenn STAPLES, Jacki; Franklin STAPLES, Juan; Natalie STAPLES, Oz Alcocer MD, Jennifer Vora Discharging Providers Flori Leal MD Reason for Admission I've been depressed my whole life. Reason for consult: depression, SI consult requested by: Greg Carrera MD Your Diagnosis Dehydration Depression Multiple sclerosis Neurogenic bladder UTI (urinary tract infection) Decreased oral intake Hypotension Adrenal insufficiency Impaired mobility and activities of daily living Spasticity Other specified health status Tests Performed Below is a partial list of the tests performed during your hospitalization. You may have had other tests and procedures not included in this list. Please discuss all test results with your provider. ACTH, Plasma ALBUMIN ALT AST Basic Metabolic Panel Blood Urea Nitrogen BUN CBC CBC w/ Differential Cortisol 30 Minutes Cortisol 60 Minutes Cortisol Level Creatinine Electrolytes FREE T4 Glucose Level Lactate Level Magnesium Level Phosphorus Level Total Bilirubin TSH with T4 Reflex (Adults Only) Urinalysis w/hold for Urine Culture CT Abd/Pelvis W/ IV Contrast Only Primary Care Provider Not on Staff, PCP Advance Directive Health Care Proxy on File Yes - Health Care Proxy Yes - MOLST Discharge Vitals Temperature: 97.5 DegF Weight: 59.4 kg Pulse Rate: 58 bpm ?? Respiratory Rate: 18 br/min ?? Systolic Blood Pressure: 93 mm Hg ?? Diastolic Blood Pressure: 55 mm Hg ?? Oxygen Saturation: 95 % ?? Studies Pending All tests and labs ordered during this hospital stay have been completed unless listed below. Please discuss all pending results with your provider listed above in these instructions. ?? Add On Lab Order Blood Culture What to do next Instructions From Your Doctor We recommend that you obtain mental health follow-up to establish??psychotherapy. Please contact one of the following [facility] clinics for a therapy appointment (let them know you??need virtual therapy visits):?? [facility]: [facility]: [facility]: [facility] If you are experiencing a mental health crisis, you can call the [facility] Crisis Hotline at [phone]. Discharge Orders Diet:??Regular Diet Activity:??as tolerated Code Status:??Limited Resuscitation No Intubation & Mechanical Ventilation Other Comfort Measures: attempt resuscitation Scheduled Follow-Up Appointments Thursday 1:00 PM EST ?? With: [place] STAPLES, Darrel Urias Where: [facility] [address] [facility] [address] [place] [address]- Status: Pending Thursday 1:00 PM EST ?? With: Sami STAPLES, Geo Novak Where: [facility] [address] [place] [address]- Status: Pending Discharge Medications JD FRAZIER :1970 Visit Date:02/25/2023 Medications: Please continue your medications until treatment is completed or stopped by your provider. Medications not listed below should be discontinued. Discuss any questions related to medications with your provider. What How Much When Instructions Next Dose New Dantrolene (dantrolene 25 mg oral capsule) 25 Milligram Oral 3 times a day 03/12 PM New Diazepam (diazepam 5 mg oral tablet) 1 tab(s) Oral Twice a day as needed for Spasm Duration: 5 Days Printed Prescription as needed New Docusate (Docusate Sodium Capsule) 100 Milligram Oral Twice a day 03/12 Pm New Fludrocortisone (fludrocortisone 0.1 mg oral tablet) 0.2 Milligram Oral Daily 03/13 AM New Lidocaine Topical (lidocaine 5% topical film) Topically Daily 03/13 AM New Melatonin (melatonin 3 mg oral tablet) 3 Milligram Oral Daily at Bedtime as needed for Insomnia as needed New Midodrine (midodrine 5 mg oral tablet) 15 Milligram Oral 3 times a day 03/12 PM New Multivitamin With Minerals (Multivit Therapeutic/ Minerals Tablet) 1 tab(s) Oral Daily 03/13 AM New Pantoprazole (pantoprazole 20 mg oral delayed release tablet) 20 Milligram Oral Daily 03/13 AM New Senna (senna 187 mg oral tablet) 1 tab(s) Oral Twice a day 03/13 PM New Thiamine (thiamine 100 mg oral tablet) 100 Milligram Oral Twice a day 03/12 PM Changed Oxycodone (oxyCODONE 5 mg oral tablet) 1 tab(s) Oral Every 6 hours as needed for for pain Duration: 3 Days Printed Prescription as needed Unchanged Acetaminophen (acetaminophen 325 mg oral tablet) 2 tab(s) Oral Every 4 hours as needed for pain/fever >100F as needed Unchanged Bisacodyl (bisacodyl 10 mg rectal suppository) 1 suppository(ies) Per rectum Every 72 hours as needed for if no BM in 3 days as needed Unchanged Milk of Magnesia (MOM Liquid) 30 Milliliter Oral Every 72 hours as needed for if no BM in 3 days as needed ?? What How Much When Comments Stop Taking Baclofen (baclofen 5 mg oral tablet) 5 Milligram Oral 3 times a day Stop Taking Clotrimazole Topical (clotrimazole 1% topical cream) apply to meatus Topically Twice a day Stop Taking Enoxaparin (enoxaparin 40 mg/ 0.4 mL injectable solution) 0.4 Milliliter Subcutaneous Injection Daily Started ?? Stop Taking Finasteride (finasteride 5 mg oral tablet) 1 tab(s) Oral Daily Stop Taking Mirtazapine (mirtazapine 7.5 mg oral tablet) 7.5 Milligram Oral Daily at Bedtime Stop Taking Mupirocin Topical (Mupirocin Topical Oint) 1 applicator Topically Twice a day Duration: 30 Days Penile meatus ?? Stop Taking Nicotine (nicotine 21 mg/ 24 hr transdermal film, extended release) 1 patch(es) Topically Daily Stop Taking Nystatin Topical 1 applicator Topically 3 times a day Stop Taking Sodium Biphosphate-Sodium Phosphate (Fleet Enema 19 gm-7 gm rectal enema) 1 Each Per rectum Every 72 hours as needed for if no BM in 3 days Stop Taking Tamsulosin (Flomax 0.4 mg oral capsule) 0.4 Milligram Oral Daily at Bedtime Test Results Below is a partial list of the most recent Laboratory test results done prior to this discharge. You may have had other tests and procedures not included in this list. Please discuss all test resultswith your provider. ACTH, Plasma (03/09/2023) ???ACTH Corticotropin - 13 ALBUMIN (03/08/2023) ???Albumin - 3.3 Gm/dL ALT (02/25/2023) ???ALT (SGPT) - 24 units/L AST (02/25/2023) ???AST (SGOT) - 49 units/L Basic Metabolic Panel (02/24/2023) ???Sodium - 134 mmol/L???Potassium - 4.1 mmol/L???Chloride - 97 mmol/L???Bicarbonate Level - 26 mmol/L???Anion Gap - 11???Glucose Level - 84 mg/dL???BUN - 16 mg/dL???Creatinine-Blood - 0.8 mg/dL???Estimated GFR Creatinine - 109 ML/MIN/1.73 M2???Calcium - 9.1 mg/dL Blood Urea Nitrogen (03/09/2023) ???BUN - 13 mg/dL BUN (02/28/2023) ???BUN - 4 mg/dL CBC (03/09/2023) ???WBC - 11.0 k/mm3???RBC - 3.61 m/mm3???Hgb - 10.6 Gm/dL???Hct - 32.0 %???MCV - 88.6 femtoliters???MCH - 29.4 pg???MCHC - 33.1 g/dL???Platelet Count - 447 k/mm3???RDW-SD - 51.6 femtoliters???MPV - 9.2 femtoliters???Nucleated RBC (Automated) - 0.0 #/100 WBC'S???Abs. NRBC - 0.0 k/mm3 CBC w/ Differential (02/28/2023) ???WBC - 3.8 k/mm3???RBC - 3.66 m/mm3???Hgb - 10.4 Gm/dL???Hct - 31.0 %???MCV - 84.7 femtoliters???MCH - 28.4 pg???MCHC - 33.5 g/dL???Platelet Count - 196 k/mm3???RDW-SD - 43.2 femtoliters???MPV - 8.8 femtoliters???Nucleated RBC (Automated) - 0.0 #/100 WBC'S???Abs. NRBC - 0.0 k/mm3???Abs. Neut - 1.6 k/mm3???Abs. Lymph - 1.6 k/mm3???Abs. [place] - 0.3 k/mm3???Abs. Eo - 0.3 k/mm3???Abs. Baso - 0.0 k/mm3???Neut % - 42.8 %???Lymph % - 41.8 %???[place] % - 7.7 %???Eos % - 6.9 %???Baso % - 0.5 %???Imm Gran- 0.3 %???Abs. Imm Gran - 0.0 k/mm3 Cortisol 30 Minutes (03/09/2023) ???Cortisol 30 Min Post - 18.5 ??g/dL Cortisol 60 Minutes (03/09/2023) ???Cortisol 60 Min Post - 21.3 ??g/dL Cortisol Level (03/09/2023) ???Cortisol Level - 14.4 ??g/dL Creatinine (03/09/2023) ???Creatinine-Blood - 0.8 mg/dL???Estimated GFR Creatinine - 108 ML/MIN/1.73 M2 Electrolytes (03/09/2023) ???Sodium - 139 mmol/L???Potassium - 4.7 mmol/L???Chloride - 102 mmol/L???Bicarbonate Level - 31 mmol/L???Anion Gap - 6 FREE T4 (02/24/2023) ???Free T4 - 1.40 ng/dL Glucose Level (02/25/2023) ???Glucose Level - 89 mg/dL Lactate Level (03/09/2023) ???Lactate - 1.3 mmol/L Magnesium Level (03/05/2023) ???Magnesium - 2.0 mg/dL Phosphorus Level (03/05/2023) ???Phosphorus - 3.8 mg/dL Total Bilirubin (02/25/2023) ???Bilirubin, Total - 0.3 mg/dL TSH with T4 Reflex (Adults Only) (02/24/2023) ???TSH - 0.30 uIU/mL Urinalysis w/hold for Urine Culture (02/24/2023) ? ?Appear/Color, Urine - YELLOW? ?Specific [place], Urine - >1.050? ?pH, Urine - 6.0? ?Albumin, Urine - 2+???Glucose, Urine - NEGATIVE???Ketones, Urine - 2+???Bilirubin, Urine - NEGATIVE???Hemoglobin, Urine - 3+???Nitrite, Urine - NEGATIVE???Leukocyte, Urine - NEGATIVE???Urobilinogen - NORMAL???WBC's, Urine - 18 /HPF???RBC's, Urine - 136 /HPF???Squamous Epith - 1 /HPF???Mucus - SLIGHT???Hold Urine Culture - Testing available 48 hours from time of collection. Immunizations This Visit Not Given Vaccine Commentsinfluenza virus vaccine, inactivated Parent Or Guardian Refuses fluids running Allergies (NKA means No Known Allergies) NKA Problems Active Problems??(6) Fall from wheelchair?? MS (multiple sclerosis)?? Rhabdomyolysis?? Urinary retention?? UTI (urinary tract infection)?? Weakness?? Education Materials Below is the list of Educational Leaflet Providered with your Discharge Instructions. Valuables and Belongings I fully understand and agree that [facility] accepts no responsibility for all my personal property including clothing, toilet articles, radios, jewelry, dentures, hearing aids, rings, money, or any other property that is in my possession or is brought to me after admission. I understand certain valuables may be placed in a hospital safe for a short period of time. I understand that the hospital is not liable for loss or damage due to accident, fire, or other natural occurrence while said property is in the safe. I accept full responsibility for any personal property that I keep with me, and will not hold the hospital responsible in case of loss or disappearance. I acknowledge that i have been encouraged to send valuables and belongings home. ?? Review of Valuable and Belonging List: With patient, With witness Date for Pt to Sign Valuables/Belongings: 03/12/23 13:25:00 ?? Other Discharge Information ? Case Management Discharge Plan?? Discharge Plan?? Discharge Agency Information?? Discharge Level of Care at Discharge: shelter facility Name of Person Notified of Transfer: DC Plan and IMM delivered to bedside [facility] [address] [facility] [phone] ?? Mode of Transportation Arranged: Ambulance ?? Discharge Arranged Transport Date/Time: 03/11/23 17:00:00 ?? Discharge Nursing Homes/Rehab Facilities: [facility] ? Pulmonary Rehab Status?? Pulmonary Rehab Discharge Status?? Respiratory Rate: 18 br/min ? Common Emergency Awareness Tips IS IT A STROKE? Act FAST and Check for these signs: FACE Does the face look uneven? ARM Does one arm drift down? SPEECH Does their speech sound strange? TIME Call at any sign of stroke ?? Heart Attack Signs Chest discomfort: Most heart attacks involve discomfort in the center of the chest and lasts more than a few minutes, or goes away and comes back. It can feel like uncomfortable pressure, squeezing, fullness or pain. Discomfort in upper body: Symptoms can include pain or discomfort in one or both arms, back, neck, jaw or stomach. Shortness of breath: With or without discomfort. Other signs: Breaking out in a cold sweat, nausea, or lightheaded. Remember, MINUTES DO MATTER. If you experience any of these heart attack warning signs, call to get immediate medical attention! ?? Smoking can increase your chances of developing chronic health problems and can cause harmful effects to other family members in your house. If you smoke, you are strongly encouraged to quit. Please call [facility] at [phone] or [phone] ([phone]) or log in to [email or web address] for referrals to smoking cessation programs. ?? 322 Suicide & Crisis Lifeline is available 03/11 if you or someone you know needs to find a reason to keep living. By calling 237 you'll be connected to a skilled, trained counselor at a crisis center in your area. INPATIENT DISCHARGE INSTRUCTIONS SIGNATURE PAGE JD FRAZIER Location:[facility] Registration Date and Time:02/25/2023 15:01 EST Primary Care Physician: Not on Staff, PCP Attending Physician: Flori Leal MD, I JD FRAZIER, have received the above patient education materials/instructions and have verbalized understanding. If ambulance or transport services are being used I further acknowledge being given a choice of service. ?? If you need to contact me, please call me at this number: . Patient/Baker [place]ry Name: Patient/Baker [place]ry Signature: Relationship to Patient: Witness Name/Signature: Date: * Peyton Canales: PERFORM, SIGN, VERIFY Event Display: Case Management Discharge Plan Authored Date: [id number] Patient: JD FRAZIER Age: 52 years Sex: Male : 1970 Associated Diagnoses: None Author: Peyton Canales Discharge Plan Case Management Discharge Plan : Case Management Discharge Plan Data 03/11/2023 14:57 EST Discharge Level of Care at Discharge shelter facility Discharge Nursing Homes/Rehab Facilities [facility] Discharge Transportation Arranged [facility] [address] [facility] [phone] Discharge Arranged Transport Date/Time 03/11/2023 17:00 Mode of Transportation Arranged Ambulance Name of Person Notified of Transfer DC Plan and IMM delivered to bedside * Peyton Canales: VERIFY, PERFORM, SIGN Event Display: Case Management Discharge Plan Authored Date: [id number] Patient: JD FRAZIER Age: 52 years Sex: Male : 1970 Associated Diagnoses: None Author: Peyton Canales Discharge Plan Case Management Discharge Plan : Case Management Discharge Plan Data 03/11/2023 14:57 EST Discharge Level of Care at Discharge shelter facility Discharge Nursing Homes/Rehab Facilities [facility] Discharge Transportation Arranged [facility] [address] [facility] [phone] Discharge Arranged Transport Date/Time 03/11/2023 17:00 Mode of Transportation Arranged Ambulance Name of Person Notified of Transfer DC Plan and IMM delivered to bedside * Event Display: Provider Clarification Note Please click on pdf link to open report Consult note * Ena Bloom NP: PERFORM Event Display: Consultation Note Authored Date: [id number] Patient is admitted for decreased oral intake, constipation, and passive suicidal ideation. Has history of MS but currently not on DMAs, he this admission reported wanting to start treatment for MS. Request placed for OP visit to discuss treatment options for MS. * Gumireddy MD, Bettye: PERFORM Event Display: Consultation Note Authored Date: [id number] Patient: ??JD FRAZIER ? Age:??52 Years?Sex:??Male?:??1970?? Provider Clinical Summary Consult type: Endocrine Reason for consultation:??Concern for adrenal insufficiency Requesting provider: Mercedez Leyva MD History of Present Illness 52-year-old male male with past medical history of multiple sclerosis diagnosed 10 years ago??genicbladder with chronic indwelling Valdez??admitted to the hospital??for??failure to thrive and possible UTI. While in the hospital, patient was noted to have??low blood pressure readings with systolic blood pressure??in the 80s. Random cortisol level obtained??was noted to be??borderline low at 6.0. Endocrinology has been consulted for??further evaluation and management of possible adrenal insufficiency. ?? Patient reports that he has??had??soft??blood pressures??for a long time.?? He denies??dizziness??(unable to stand??due to numbness),??nausea, vomiting, anorexia, myalgias. ??He does endorse weight loss of about 40 pounds in the past 6 months??but reports that it is??due to??not??liking??food at the [facility] and??in the hospital. He has never??been prescribed??steroids, is not on any inhalers, has not received any joint injections. He has been on oxycodone??5 Mg??as needed (takes about 2 tabs??per day)??for??lower back pain??and bilateral lower extremity spasticity. ??He reports that the oxycodone had??been prescribed about 4 months ago.? Patient's blood pressures??since admission to the hospital have ranged between 75/41 to 96/60.?? Other vitals have been within normal limits. Labs show sodium 139, potassium 3.9, bicarb 28, creatinine 0.6 Cortisol level on 02/27 at midnight was 4.4, on 02/28 at 3 AM was 6.0, on 02/28 at 2:25 PM was 7.3. ?? Patient was started on??stress dose steroids with hydrocortisone 100 Mg IV x1??followed by??hydrocortisone 50 Mg??IV??every 8 hours??on 02/28/2023. Review of Systems 12 point ROS was performed and is negative except for as mentioned above Physical Exam Vitals & Measurements T:??97.4?F?? TMIN:??97.4?F?? TMAX:??98.0?F?? HR:??61??(Peripheral)?? RR:??17?? BP:??83/75?? SpO2:??100%?? WT:??59.9??kg?? General: age appropriate individual, in no acute distress HEENT: normocephalic, atraumatic, no conjunctival injection, no scleral icterus, moist oral mucosalmembranes Neck: Supple Lungs: Clear to auscultation b/l, no wheezing, no crackles, no rhonchi Heart: S1, S2 Normal, regular rate and rhythm, no murmur heard Abdomen: Soft, nontender, no appreciable hepatosplenomegaly Neuro: grossly nonfocal Assessment/Plan 52-year-old male male with past medical history of multiple sclerosis diagnosed 10 years ago??genicbladder with chronic indwelling Valdez??admitted to the hospital??for??failure to thrive and possible UTI. Hospital course complicated by patient??having persistent hypotension??raising concern for adrenal insufficiency. ?? Suspected adrenal insufficiency Patient has been on stress dose steroids since yesterday however there has not been significant improvement in his blood pressure.?? Given his history of multiple sclerosis,??it is possible that his hypotension is??chronic from autonomic dysfunction.?? Cortisol levels??do seem??relatively low for degree of hypotension??however if??the low blood pressures have been chronic,??these cortisol level may be interpreted as appropriate.?? Patient is on oxycodone??which could cause??secondary adrenal insufficiency???ACTH level is pending. ???Continue hydrocortisone 50 mg every 8 hours??for now If there is no significant improvement??in patient's blood pressure in the next 24 hours,??we will plan??to taper steroids off. ?? Plan of care discussed with??Dr. Muller,??addendum to follow. ?? Bettye Rao MD PGY IV Endocrinology, Diabetes, & Metabolism?? Problem List/Past Medical History Ongoing Fall from wheelchair MS (multiple sclerosis) Rhabdomyolysis Urinary retention UTI (urinary tract infection) Weakness Medications Inpatient Acetaminophen Tablet, 650 mg, By Mouth, Every 4 hours, PRN Diazepam Tablet, 2.5 mg, By Mouth, 2 times a day, PRN Docusate Sodium Capsule, 100 mg= 1 capsule, By Mouth, 2 times a day finasteride 5 mg oral tablet, 5 mg, By Mouth, Daily Heparin Inj, 5000 units= 1 mL, Subcutaneous Injection, 3 times a day HydroCORTisone Inj, 50 mg, IV Push Slowly, Every 8 hours Lidocaine 5% Patch, 1 each, Topically, Daily LR 1000 mL, 1000 mL, IV Infusion Melatonin Tablet, 3 mg, By Mouth, Daily at bedtime, PRN midodrine 5 mg oral tablet, 5 mg, By Mouth, 3 times a day MiraLax Powder, 17 Gm= 1 pack/packet, By Mouth, Daily Multivit Therapeutic/Minerals Tablet, 1 tablet, By Mouth, Daily NaCL 0.9% Flush, 3 mL, IV Push, Every 8 hours NaCL 0.9% Flush, 3 mL, IV Push, Every 8 hours, PRN oxyCODONE 5 mg oral tablet, 5 mg, By Mouth, Every 6 hours, PRN Remove Lidocaine Patch, 1 each, Topically, Daily at bedtime Senna Tablet, 8.6 mg= 1 tablet, By Mouth, 2 times a day tamsulosin 0.4 mg oral capsule, 0.4 mg, By Mouth, Daily at bedtime thiamine 100 mg oral tablet, 100 mg, By Mouth, 2 times a day Home acetaminophen 325 mg oral tablet, 650 mg= 2 tablet, By Mouth, Every 4 hours, PRN baclofen 5 mg oral tablet, 5 mg, By Mouth, 3 times a day bisacodyl 10 mg rectal suppository, 10 mg= 1 supp, Rectally, Every 72 hours, PRN clotrimazole 1% topical cream, apply to meatus, Topically, 2 times a day enoxaparin 40 mg/0.4 mL injectable solution, 40 mg= 0.4 mL, Subcutaneous Injection, Daily finasteride 5 mg oral tablet, 5 mg= 1 tablet, By Mouth, Daily Fleet Enema 19 gm-7 gm rectal enema, 1 each, Rectally, Every 72 hours, PRN Flomax 0.4 mg oral capsule, 0.4 mg, By Mouth, Daily at bedtime mirtazapine 7.5 mg oral tablet, 7.5 mg, By Mouth, Daily at bedtime MOM Liquid, 30 mL, By Mouth, Every 72 hours, PRN Mupirocin Topical Oint, 1 applicator, Topically, 2 times a day nicotine 21 mg/24 hr transdermal film, extended release, 1 patch, Topically, Daily Nystatin Topical, 1 applicator, Topically, 3 times a day oxyCODONE 5 mg oral tablet, 5 mg= 1 tablet, By Mouth, Every 6 hours, PRN Allergies NKA Social History Tobacco Use: 5-9 cigarettes (between 1/4 to 1/2 pack)/day in last 30 days. Immunizations Vaccine Date Status influenza virus vaccine, inactivated - Not Given Comments : Parent Or Guardian Refuses fluids running * Yohana STAPLES, Soraya: PERFORM Event Display: Consultation Note Authored Date: ??I have seen and evaluated this patient. ??I have discussed the case and its management with the fellow and agree with the findings and plan as documented in the fellow???s note.?? * Carlyn STAPLES, Jennifer Vora: PERFORM Event Display: Consultation Note Authored Date: [id number] Patient: ??JD FRAZIER ? Age:??52 Years?Sex:??Male?:??1970?? Chief Complaint I've been depressed my whole life. Reason for consult: depression, SI consult requested by: Greg Carrera MD History of Present Illness Jd Frazier is a 52-year-old male with history of multiple sclerosis,??chronic spasticity, neurogenic bladder??requiring indwelling Valdez catheter presented??to the emergency room with??decreased oral intake, constipation,??passive suicidal ideation and was admitted for dehydration. Psychiatry consulted for assessment of mood and SI. ?? After introducing myself patient right away??states that he is not suicidal.?? He said he made somestatements because he was frustrated but denies any??desire to harm himself or be .?? He says he is Worship and so he would never kill himself??and that he has hope that he will get better.?? I have to have hope or else what else do I have? ?? He endorses depressed mood and says that he has f elt this way for years and years.?? He saw a psychiatrist when he was younger and trialed numerous antidepressants??but says he had problems with all of them?? psychologically. ?? He says he has no interest in being on medications now.?? He has never been in therapy??and was interested to know moreabout it so we discussed??different types of psychotherapy.?? He said he thought??that could be helpful and was open to it.?He has trouble using his hands and so would need someone to help him connect therapy call??on his phone??but then could manage it??after that. ?? He says he has some friends and family??that he can talk to but that no one really understands what he is going through.?? He is felt??more depressed??since being in a rehab 4 months ago.?? He said he had a fall out of his wheelchair??when he was having a spasm??and it has significantly set him back.?? He states he hates being in rehab because he has??MS and so he does not feel like they are giving him the kind of rehab that he actually needs.?? He said he would much rather go home??lot of great neighbors who could help him out but is able to admit that??he needs a Chrystal lift??and does nothave??equipment like that in his home.?He says that staff are treating him fine here??but that??s ometimes he has to wait a long time for someone to respond to the call button.?? He feels??he has been neglected at the rehab he has been staying in. Review of Systems All systems reviewed and negative except as noted in HPI. Mental Status Vitals & Measurements T:??99?F?? TMIN:??98.4?F?? TMAX:??101.3?F?? HR:??71??(Peripheral)?? RR:??16?? BP:??101/60?? SpO2:??98%?? Mental Status Examination Appearance: intact grooming, thin, lying in bed in position Attitude toward examiner:??Cooperative Activity:??normal Mood:? depressed Affect:??congruent, constricted Speech:??regular rate, volume, and prosody Language:??fluent Thought Process:??linear, goal-directed Thought Content:??no delusional content ?Suicidal Ideation:??No SI Perceptions:??No A/V H Cognition: ?Alert ?Oriented to??person, place, time, and situation ?Memory:??intact to recent events ?Concentration:??intact to conversation ?Fund of knowledge: appropriate to age ?Abstract reasoning:??intact Insight:??fair Judgement:??fair ?? Neurological Examination Cranial Nerves: EOMI, face symmetric, no dysarthria?? Motor: Moves UEs antigravity; LEs in flexed position on bed ?? [place] Suicide Score [place] Suicide Assessment Ca (02/24/23) Suicidal Intent No Plan Past Month-CSSRS: No (02/24/23) Suicidal Thoughts Method Past Mon-CSSRS: No (02/24/23) Suicidal Thoughts Past Month - CSSRS: No (02/24/23) Suicide Behavior Lifetime - CSSRS: No (02/24/23) Suicide Intent w/Plan Past Month - CSSRS: No (02/24/23) Wish to be Past Month - CSSRS: No (02/24/23) Assessment/Plan 52-year-old male with history of multiple sclerosis,??chronic spasticity, neurogenic bladder??requiring indwelling Valdez catheter presented??to the emergency room with??decreased oral intake, constipation,??passive suicidal ideation and was admitted for dehydration. Psychiatry consulted for assessment of mood and SI. ?? Patient has consistently??denied SI during hospital stay; He is very unhappy with his current physical condition and with being in rehab where he feels he is neglected. He has a long hx of depressive symptoms; likely dysthymic disorder. He has no interest in psychiatric medication but is open totherapy which would likely be much more beneficial to him. He will need??virtual appointments given his mobility issues.? Diagnosis: dysthymic disorder ?? Recommendations: -no psychiatric contraindication to discharge -psychotherapy referral info placed in discharge instructions -pnt declining psychotropic meds at this time ?? Discussed with Dr. Grace. ?? Jennifer Alcocer MD Attending, Psychiatry Consultation Service [facility] ?? 80 min spent reviewing chart, speaking with primary team, obtaining the HPI, examining patient, and counseling the patient on??dysthymia??and treatment options.?? Problem List/Past Medical History Ongoing Fall from wheelchair MS (multiple sclerosis) Rhabdomyolysis Urinary retention UTI (urinary tract infection) Weakness Medications Inpatient Acetaminophen Tablet, 650 mg, By Mouth, Every 4 hours, PRN Ceftriaxone IVPB, 1 Gm, IVPB, Every 24 hours Diazepam Tablet, 2.5 mg, By Mouth, 2 times a day, PRN Docusate Sodium Capsule, 100 mg= 1 capsule, By Mouth, 2 times a day finasteride 5 mg oral tablet, 5 mg, By Mouth, Daily Heparin Inj, 5000 units= 1 mL, Subcutaneous Injection, 3 times a day Influenza, Quadrivalent Vaccine (Fluzone Quad), 0.5 mL, Intramuscular, Once LR 1,000 mL, 1000 mL, IV Infusion Melatonin Tablet, 3 mg, By Mouth, Daily at bedtime, PRN MiraLax Powder, 17 Gm= 1 pack/packet, By Mouth, Daily MorPHINE Inj, 2 mg, IV Push Slowly, Every 4 hours, PRN Multivit Therapeutic/Minerals Tablet, 1 tablet, By Mouth, Daily NaCL 0.9% Flush, 3 mL, IV Push, Every 8 hours NaCL 0.9% Flush, 3 mL, IV Push, Every 8 hours, PRN Senna Tablet, 8.6 mg= 1 tablet, By Mouth, 2 times a day tamsulosin 0.4 mg oral capsule, 0.4 mg, By Mouth, Daily at bedtime thiamine 100 mg oral tablet, 100 mg, By Mouth, 2 times a day Home acetaminophen 325 mg oral tablet, 650 mg= 2 tablet, By Mouth, Every 4 hours, PRN baclofen 5 mg oral tablet, 5 mg, By Mouth, 3 times a day bisacodyl 10 mg rectal suppository, 10 mg= 1 supp, Rectally, Every 72 hours, PRN clotrimazole 1% topical cream, apply to meatus, Topically, 2 times a day enoxaparin 40 mg/0.4 mL injectable solution, 40 mg= 0.4 mL, Subcutaneous Injection, Daily finasteride 5 mg oral tablet, 5 mg= 1 tablet, By Mouth, Daily Fleet Enema 19 gm-7 gm rectal enema, 1 each, Rectally, Every 72 hours, PRN Flomax 0.4 mg oral capsule, 0.4 mg, By Mouth, Daily at bedtime mirtazapine 7.5 mg oral tablet, 7.5 mg, By Mouth, Daily at bedtime MOM Liquid, 30 mL, By Mouth, Every 72 hours, PRN Mupirocin Topical Oint, 1 applicator, Topically, 2 times a day nicotine 21 mg/24 hr transdermal film, extended release, 1 patch, Topically, Daily Nystatin Topical, 1 applicator, Topically, 3 times a day oxyCODONE 5 mg oral tablet, 5 mg= 1 tablet, By Mouth, Every 6 hours, PRN Allergies NKA Social History Tobacco Use: 5-9 cigarettes (between 1/4 to 1/2 pack)/day in last 30 days. Used to work as a massage therapist and live indepently but currently residing in a rehab. ?? Past Psychiatric History: Diagnoses: depression Hospitalizations: denies Suicide attempts: denies Medication trials: numerous in the past; states he didn't like any antidepressant he's ever tried Providers: no mental health providers Lab Results Event Name?? Event Result?? Normal Range?? Date/Time?? WBC 4.9 k/mm3 4 k/mm3 - 11 k/mm3 02/25/23 02:06:00 RBC 4.11 m/mm3??Low 4.7 m/mm3 - 6.1 m/mm3 02/25/23 02:06:00 Hgb 11.8 Gm/dL??Low 13.7 Gm/dL - 17.1 Gm/dL 02/25/23 02:06:00 Hct 35 %??Low 40.5 % - 50 % 02/25/23 02:06:00 MCV 85.2 femtoliters 80 femtoliters - 94 femtoliters 02/25/23 02:06:00 MCH 28.7 pg 27 pg - 34 pg 02/25/23 02:06:00 MCHC 33.7 g/dL 33 g/dL - 37 g/dL 02/25/23 02:06:00 Platelet Count 231 k/mm3 150 k/mm3 - 460 k/mm3 02/25/23 02:06:00 RDW-SD 42.7 femtoliters ?? 02/25/23 02:06:00 MPV 9.3 femtoliters??Low 9.4 femtoliters - 12.4 femtoliters 02/25/23 02:06:00 Nucleated RBC (Automated) 0 #/100 WBC'S ?? 02/25/23 02:06:00 Abs. NRBC 0 k/mm3 ?? 02/25/23 02:06:00 Sodium 135 mmol/L 133 mmol/L - 145 mmol/L 02/25/23 02:06:00 Potassium 3.8 mmol/L 3.6 mmol/L - 5.2 mmol/L 02/25/23 02:06:00 Chloride 99 mmol/L 98 mmol/L - 107 mmol/L 02/25/23 02:06:00 Bicarbonate Level 24 mmol/L 22 mmol/L - 29 mmol/L 02/25/23 02:06:00 Anion Gap 12 4 ??- 17 02/25/23 02:06:00 Glucose Level 89 mg/dL 70 mg/dL - 99 mg/dL 02/25/23 02:06:00 BUN 15 mg/dL 6 mg/dL - 20 mg/dL 02/25/23 02:06:00 Creatinine-Blood 0.7 mg/dL 0.7 mg/dL - 1.2 mg/dL 02/25/23 02:06:00 Estimated GFR Creatinine 109 ML/MIN/1.73 M2 ?? 02/25/23 02:06:00 Phosphorus 3.7 mg/dL 2.5 mg/dL - 4.5 mg/dL 02/25/23 02:06:00 Magnesium 1.7 mg/dL 1.6 mg/dL - 2.3 mg/dL 02/25/23 02:06:00 Albumin 3.6 Gm/dL 3.4 Gm/dL - 4.8 Gm/dL 02/25/23 02:06:00 AST (SGOT) 49 units/L??High 0 units/L - 40 units/L 02/25/23 02:06:00 ALT (SGPT) 24 units/L 0 units/L - 41 units/L 02/25/23 02:06:00 Bilirubin, Total 0.3 mg/dL 0 mg/dL - 1.2 mg/dL 02/25/23 02:06:00 Appear/Color, Urine YELLOW ?? 02/24/23 17:27:00 Specific Poyen, Urine >1.050??High 1.002 ??- 1.03 02/24/23 17:27:00 pH, Urine 6 5 ??- 8 02/24/23 17:27:00 Albumin, Urine 2+ Abnormal ?? 02/24/23 17:27:00 Glucose, Urine NEGATIVE ?? 02/24/23 17:27:00 Ketones, Urine 2+ Abnormal ?? 02/24/23 17:27:00 Bilirubin, Urine NEGATIVE ?? 02/24/23 17:27:00 Hemoglobin, Urine 3+ Abnormal ?? 02/24/23 17:27:00 Nitrite, Urine NEGATIVE ?? 02/24/23 17:27:00 Leukocyte, Urine NEGATIVE ?? 02/24/23 17:27:00 Urobilinogen NORMAL ?? 02/24/23 17:27:00 WBC's, Urine 18 /HPF??High 0 /HPF - 5 /HPF 02/24/23 17:27:00 RBC's, Urine 136 /HPF??High 0 /HPF - 3 /HPF 02/24/23 17:27:00 Squamous Epith 1 /HPF 0 /HPF - 8 /HPF 02/24/23 17:27:00 Mucus SLIGHT ?? 02/24/23 17:27:00 Hold Urine Culture Testing available 48 hours from time of collection. ?? 02/24/23 17:27:00 ? Patient Care team information Care Team Personnel Name: Sabine Calvo [facility] RN Member Role: Primary Care Nurse Name: Chyna Curtis RN Position[facility] RN Member Role: Primary Care Nurse Name: Austin Holden RN Position: [facility] RN Member Role: Primary Care Nurse Name: Benja Christianson RN Position: [facility] RN Member Role: Primary Care Nurse Name: Chyna Gooden LPN Position: [facility] RN Member Role: Primary Care Nurse Name: Conrado Peña RN Position: [facility] RN Member Role: Primary Care Nurse Name: Vitaliy Marie RN Position: [facility] RN Member Role: Primary Care Nurse Name: Not on Staff, PCP Position: [facility] Physician (General Medicine) Member Role: PCP Name: Linda Mcbride RN Position: [facility] SN RN Member Role: Primary Care Nurse Name: Eloise Arenas RN Position: [facility] RN Member Role: Primary Care Nurse Name: Price Saeed RN Position: [facility] RN Member Role: Primary Care Nurse Name: Joseph Lawton RN Position: [facility] RN Member Role: Primary Care Nurse Name: Flavia Villegas RN Position: [facility] RN Member Role: Primary Care Nurse Name: Kelly Dodge RN Position: [facility] RN Member Role: Primary Care Nurse Name: Vanessa QUINONES Attending Position: [facility] ED Medicine MD Name: Melvin Lugo MD Position: [facility] Resident Member Role: ED Resident Address: Address: [address] [place] [address] [place] [address] Name: Svitlana Bee Position: [facility] ED TA [facility] Name: Keagan Alegria Position: [facility] ED OA Charge Member Role: ED Associate Name: Lucia Ramirez RN Position: [facility] ED RN W/OE and Tasks Member Role: Patient Care Provider Care Team Related Persons Name: CARMINA FRAZIER Address: home [address] [place] [address] Name: LORNE TINEO Address: [place] [address]
--- OUTSIDE RECORDS SUMMARY | 2023-09-25 11:10 | XMS_ITS | Continuity of Care Document ---
Author Organization [facility] Address [address] [place] [address] [address] [place] [address]- Care Team Providers Care Blower Mechanic Name Role Phone Sami STAPLES, Geo Novak Primary Care Physician [place] [facility] [place] 06/16/23 [facility] [address] [place] [id number]- Attending Physician: Juan Reid MD Allergies, Adverse Reactions, Alerts No Known [...] Active UTI (urinary tract infection) Confirmed Active Vital Signs Most recent to oldest [Reference Range]: 1 Height 179 cm (06/09/23 9:04 AM) Oxygen Saturation [94-100 %] 95 % (06/09/23 9:04 AM) Pulse Rate [55-90 bpm] 60 bpm (06/09/23 9:04 AM) Blood Pressure [90-138/55-84 mm Hg] 80/5 7mm Hg *L* (06/09/23 9:04 AM) Mode of Delivery (Oxygen) Room air (06/09/23 9:04 AM) Social History Social History Type Response Smoking Status 5-9 cigarettes (betw een 1/4 to 1/2 pack)/day in last 30 days entered on: 03/25/18 Sex Patient Care team information Care Team Personnel Name: Geo Gallardo MD Position: [facility] Physician - Primary Care Member Role: PCP Address: Address: [address] [place] [address] Name: Sabine Calvo RN Position: [facility] RN Member Role: Primary Care Nurse Name: Chyna Curtis RN Position: [facility] RN Member Role: Primary Care Nurse Name: Austin Holden RN Position: [facility] RN Member Role: Primary Care Nurse Name: Benja Christianson RN Position: [facility] RN Member Role: Primary Care Nurse Name: Chyna Gooden LPN Position: [facility] RN Member Role: Primary Care Nurse Name: Conrado Peña RN Position: [facility] RN Member Role: Primary Care Nurse Name: Vitaliy Marie RN Position: [facility] RN Member Role: Primary Care Nurse Name: Linda Mcbride RN Position: [facility] SN RN Member Role: Primary Care Nurse Name: Price Saeed RN Position: [facility] RN Member Role: Primary Care Nurse Name: Flavia Villegas RN Position: [facility] RN Member Role: Primary Care Nurse Name: Kelly Dodge RN Position: [facility] RN Member Role: Primary Care Nurse Care Team Related Persons Name: CARMINA AVILA Address: home [address] [place] [address] Name: LORNE TINEO Address: [place] [address]
--- OUTSIDE RECORDS SUMMARY | 2023-09-25 11:10 | XMS_ITS | Continuity of Care Document ---
Author Organization [facility] Address [address], [address] Floor, [address] [place] [address]- Care Team Providers Care Scrap Sorter Name Role Phone Jalen Obando MEDICAL LIBRARY ASSISTANT, Lyla Fritz Primary Care P bessy Encounter [facility] [place] Date(s): 12/12/22 - 01/11/23 [facility] [address], [address], [address] [place] [id number] Allergies, Adverse Reactions, Alerts No Known Allergies [...] information Care Team Personnel Name: Jalen Obando MEDICAL LIBRARY ASSISTANT, Lyla Fritz Position: [facility] PCO Associate Professional Member Role: PCP Address: Address: [address] [place] [id number]- Name: Benja Christianson RN Position: S RN Member Role: Primary Care Nurse Name: Conrado Peña RN Position: S RN Member Role: Primary Care Nurse Name: Linda Mcbride RN Position: [facility] RN Member Role: Primary Care Nurse Care Team Related Persons Name: CARMINA AVILA Address: home [address] [place] [id number] Name: LORNE TINEO Address: [place] [address]
--- OUTSIDE RECORDS SUMMARY | 2023-09-25 11:10 | XMS_ITS | Continuity of Care Document ---
Author Organization [facility] Address [address], [address], [address] [place] [address]- Care Team Providers Care Pet Care Assistant Name Role Phone Not on Staff, PCP Primary Care Physician Unavail able En[place] [facility] [place] 12/23/22 - 04/12/23 [facility] [address], [address], [address] [place] [address]- Attending Physician: Rafita Goldsmith MD Admitting Physician: Rafita Goldsmith MD Referring Physician: Guillermo Suárez MD Allergies, Adverse Reactions, Alerts No Known [...] Team Personnel Name: Sabine Calvo RN Position: [facility] RN Member Role: Primary Care Nurse Name: Chyna Curtis RN Position: [facility] RN Member Role: Primary Care Nurse Name: Austin Holden RN Position: [facility] RN Member Role: Primary Care Nurse Name: Benja Christianson RN Position: S RN Member Role: Primary Care Nurse Name: Chyna Gooden LPN Position: S RN Member Role: Primary Care Nurse Name: Conrado Peña RN Position: [facility] RN Member Role: Primary Care Nurse Name: Vitaliy Marie RN Position: S RN Member Role: Primary Care Nurse Name: Not on Staff, PCP Position: [facility] Physician (General Medicine) Member Role: PCP Name: Linda Mcbride RN Position: [facility] SN RN Member Role: Primary Care Nurse Name: Price Saeed RN Position: S RN Member Role: Primary Care Nurse Name: Flavia Villegas RN Position: S RN Member Role: Primary Care Nurse Name: Kelly Dodge RN Position: [facility] RN Member Role: Primary Care Nurse Care Team Related Persons Name: CARMINA AVILA Address: home [address] [place] [id number] Name: NOMAN LORNE Address: [place] [address]
--- OUTSIDE RECORDS SUMMARY | 2023-09-25 11:10 | XMS_ITS | Continuity of Care Document ---
Author Organization [facility] Address [address] [place] [address]- Care Team Providers Care Timber Estimator Name Role Phone Not on Staff, PCP Primary Care Physician Unavail able Encounter [facility] [place] Date(s): 11/17/22 - 03/28/23 [facility] [address] [place] [address]- Attending Physician: Juan Reid MD Referring Physician: Alon JOHNSON, Kumar A Allergies, Adverse Reactions, Alerts No Known Allergies [...] Team Personnel Name: Sabine Calvo RN Position: [facility] RN Member Role: Primary Care Nurse Name: Chyna Curtis RN Position: [facility] RN Member Role: Primary Care Nurse Name: Austin Holden RN Position: [facility] RN Member Role: Primary Care Nurse Name: Benja Christianson RN Position: S RN Member Role: Primary Care Nurse Name: Chyna Gooden LPN Position: S RN Member Role: Primary Care Nurse Name: Conrado Peña RN Position: [facility] RN Member Role: Primary Care Nurse Name: Vitaliy Marie RN Position: [facility] RN Member Role: Primary Care Nurse Name: Not on Staff, PCP Position: [facility] Physician (General Medicine) Member Role: PCP Name: Linda Mcbride RN Position: [facility] RN Member Role: Primary Care Nurse Name: Eloise Arenas RN Position: [facility] RN Member Role: Primary Care Nurse Name: Price Saeed RN Position: S RN Member Role: Primary Care Nurse Name: Flavia Villegas RN Position: S RN Member Role: Primary Care Nurse Name: Kelly Dodge RN Position: [facility] RN Member Role: Primary Care Nurse Care Team Related Persons Name: CARMINA AVILA Address: home [address] [place] [id number] Name: NOMAN LORNE Address: [place] [address]
--- OUTSIDE RECORDS SUMMARY | 2023-09-25 11:10 | XMS_ITS | Continuity of Care Document ---
Author Organization [facility] Address [address] [place] [id number] Care Team Providers Care Drum Reel Cutter Name Role Phone Jalen Obando SENIOR TECHNICAL PROJECT MANAGER, Lyla Fritz Primary Care P bessy Encounter [facility] Date(s): 12/02/22 - 12/08/[address] [id number]- Encounter Diagnosis Hypotension(Final) - 12/02/22 Sepsis(Final) - 12/02/22 Discharge Disposition: Disch/Trans to IP Rehab or unit w/in Hos Attending Physician: Kenny Whitt MD Admitting Physician: Sandi Ybarra MD Referring Physician: Not on Staff, Referring MD Allergies, Adverse Reactions, Alerts No Known Allergies Medications acetaminophen 325 mg oral tablet 650 mg, 2, tablet, By Mouth, Every 4 hours, PRN, Maintenance, pain/fever >100F, 12/03/22 14:25:00 EDT, Partial fill upon patient request if the prescription is for a schedule II opioid drug. Start Date: 12/03/22 Status: Ordered baclofen 10 mg oral tablet 10 mg, Tablet, By Mouth, 12/08/22 9:00:00 EDT Start Date: 12/08/22 Stop Date: 12/08/22 Status: Completed baclofen 5 mg oral tablet = 5 [...] Results Orders for Microbiology Reports Name Date Urine Culture (URINE CULTURE) 12/02/22 Blood Culture 12/02/22 Blood Culture #2 12/02/22 Microbiology Reports TEST:Urine Culture STATUS:Auth (Verified) BODY SITE: SOURCE:URINE COLLECTED DATE/TIME:12/02/22 4:20 PM Urine Culture SPECIMEN DESCRIPTION : URINE SPECIAL REQUESTS : NONE CULTURE : 10-50,000 COL/ML PSEUDOMONAS AERUGINOSA This isolate was identified using Maldi-TOF system These AST results were performed on the Qustreetcan ID and AST system REPORT STATUS : FINAL 12/05/2022 ORGANISM 10-50,000 COL/ML PSEUDOMONAS AERUGINOSA This isolate was identified using Maldi-TOF system These AST results were performed on the Microscan ID and AST system METHOD MIN. INHIB. CONC. (MCG/ML) AMIKACIN INTERMEDIATE CEFEPIME SUSCEPTIBLE CEFTAZIDIME SUSCEPTIBLE CIPROFLOXACIN RESISTANT GENTAMICIN RESISTANT LEVOFLOXACIN RESISTANT MEROPENEM SUSCEPTIBLE PIPERACILLIN/TAZOBAC SUSCEPTIBLE TOBRAMYCIN SUSCEPTIBLE TEST:Blood Culture, Second Order STATUS:Auth (Verified) BODY SITE: SOURCE:Blood COLLECTED DATE/TIME:12/02/22 2:40 PM Blood Culture, Second Order SPECIMEN DESCRIPTION : BLOOD L AC SPECIAL REQUESTS : NONE CULTURE : NO GROWTH 5 DAYS. REPORT STATUS : FINAL 12/07/2022 TEST:Blood Culture STATUS:Auth (Verified) BODY SITE: SOURCE:Blood COLLECTED DATE/TIME:12/02/22 2:32 PM Blood Culture SPECIMEN DESCRIPTION : BLOOD RAC SPECIAL REQUESTS : NONE CULTURE : NO GROWTH 5 DAYS. REPORT STATUS : FINAL 12/07/2022 Radiology Reports * Exam Date Time Procedure Performing Provider Status 12/05/22 6:[address] Head/Brain W/O Contrast Noah Matos; Auth (Verified) Notes: (CT Head/Brain W/O Contrast) Reason For Exam: spasms, known MS;Other: RESULT: CT Head/Brain W/O Contrast CT Head/Brain W/O Contrast INDICATION: Reason: Other:; spasms, known MS; Clinical Question(s): Other:; Order Comment: TECHNIQUE: Noncontrast head CT using axial technique and reconstructed in axial and coronal planes.Iterative reconstruction techniques are used to optimize dose and image quality. CTDIvol Head: 46.49 mGy, DLP Head: 1674 mGy*cm. COMPARISON: No prior brain imaging available for comparison. FINDINGS: Steaming Cabinet Tender view findings, lines and tubes: None. BRAIN AND EXTRA-AXIAL SPACES: No parenchymal hemorrhage, midline shift, or mass effect. Steward-white matter differentiation is wellpreserved. No acute infarct. Negative insular ribbon and hyperdense vessel signs. Mild prominence of the ventricles and sulci consistent with parenchymal volume loss. Mild low-density white matter changes. No subarachnoid hemorrhage. No subdural or epidural collection. CALVARIUM, SKULL BASE, AND SOFT TISSUES: No fractures or suspicious bony lesions. There is a prominent retention cyst or polyp within the left maxillary sinus. Otherwise the paranasal sinuses and mastoid air cells are clear. Visualized orbits and globes are intact. The extracranial soft tissues are unremarkable. IMPRESSION: No acute intracranial hemorrhage or mass effect. WSN: [id number] Ordering Physician: Celestina Maxwell Dictated By: Gino Casarez MD Dictated Date/Time: 12/05/22 8:03 pm Reviewed By: Gino Casarez MD Signed By: Gino Casarez MD Signed Date/Time: 12/05/22 8:03 pm Transcribed By: TRUNG Transcribed Date/Time: 12/05/22 8:02 pm * Exam Date Time Procedure Performing Provider Status 12/02/22 3:21 PM Chest 2 Views Frontal and Lat Jonathan Tilley; [place]on (Verified) Notes: (Chest 2 Views Frontal and Lat) Reason For Exam: Shortness of Breath, Fever;Other: RESULT: Chest 2 Views Frontal and Lat Chest 2 Views Frontal and Lat Hx of Present Illness: See YANNICK Level 1 Sheet- Hypotension; Reason: Other:; Shortness of Breath, Fever; Clinical Question(s): Pneumonia COMPARISON: None. FINDINGS: LINES AND TUBES: None. LUNGS AND PLEURA: Clear lungs. Normal pulmonary vascularity. No pleural effusion. No pneumothorax. HEART, MEDIASTINUM AND MONROE: Heart is normal in size. Normal mediastinal and hilar contour. BONES AND SOFT TISSUES: No acute abnormality. IMPRESSION: No acute abnormality. WSN: [id number] Ordering Physician: Juan Miguel Fritz Dictated By: Santi Lee MD, V Dictated Date/Time: 12/02/22 3:23 pm Reviewed By: Santi Lee MD, V Signed By: Santi Lee MD, V Signed Date/Time: 12/02/22 3:23 pm Transcribed By: TRUNG Transcribed Date/Time: 12/02/22 3:22 pm Vital Signs Most recent to oldest [Reference Range]: 1 2 3 Height 179 cm (12/08/22 2:55 PM) 179 cm (12/08/22 7:35 AM) 179 cm (12/07/22 2:51 PM) Weight 75.9 kg (12/03/22 6:56 PM) 64.3 kg (12/03/22 4:47 PM) Oxygen Saturation [94-100 %] 95 % (12/08/22 2:55 PM) 98 % (12/08/22 7:35 AM) 96 % (12/08/22 12:00 AM) Pulse Rate [55-90 bpm] 60 bpm (12/08/22 2:55 PM) 56 bpm (12/08/22 7:35 AM) 60 bpm (12/08/22 12:00 AM) Body Mass Index [18.5-24.99 kg/m2] 23.69 kg/m2 (12/03/22 6:56 PM) Blood Pressure [90-138/55-84 mm Hg] 98/59mm Hg (12/08/22 2:55 PM) 111/55mm Hg (12/08/22 7:35 AM) 98/61mm Hg (12/08/22 12:00 AM) Respiratory Rate [16-30 br/min] 18 br/min (12/08/22 2:55 PM) 18 br/min (12/08/22 8:58 AM) 18 br/min (12/08/22 7:35 AM) Temperature [96.8-100.4 DegF] 98.6 DegF (12/08/22 2:55 PM) 97.9 DegF (12/08/22 7:35 AM) 97.5 DegF (12/08/22 12:00 AM) Mode of Delivery (Oxygen) Room air (12/08/22 2:55 PM) Room air (12/08/22 7:35 AM) Room air (12/08/22 12:00 AM) Blood pressure sites Arm, right (12/08/22 2:55 PM) Arm, right (12/08/22 7:35 AM) Arm, right (12/08/22 12:00 AM) Temperature Route Oral (12/08/22 2:55 PM) Oral (12/08/22 7:35 AM) Oral (12/08/22 12:00 AM) Dry Weight 75.9 kg (12/03/22 6:56 PM) Weight Obtained Via Bed scale (12/03/22 4:47 PM) Social History Social History Type Response Smoking Status 5-9 cigarettes (betw een 1/4 to 1/2 pack)/day in last 30 days entered on: 03/25/18 Sex Male Admission evaluation note * Dayday Nunn DO: PERFORM, MODIFY, MODIFY Event Display: Admission Note Authored Date: [id number] Patient: ??JD FRAZIER ? Age:??52 Years?Sex:??Male?:??1970?? Chief Complaint Sepsis History of Present Illness 52-year-old male??presents with a past medical history of??multiple sclerosis, depression, nicotinedependence.?? Presented to [facility] from his??nursing facility??after routine labs??were concerning??for infectious causes with a leukocytosis. ??He was also found to be hypotensive inroute by EMS.?? Repeat blood pressure in the emergency room was normal. ??He had a low- grade temperature??rectally in the emergency room. ??Was given adequate fluid resuscitation and started on empiric antibiotic therapy for presumed??genitourinary sepsis.?? Patient had a chronic indwelling Valdez ca theter??and also??a lesion at the urethral meatus which was noted by the emergency room??physician.??I could not appreciate this on exam.?? Valdez catheter was removed, clean-catch sample??was obtained with white cells and leukocyte esterase noted.?? Condom catheter is now in place. ??Patient denies any fevers or chills??at his nursing facility but apparently reported feeling fatigued??and somewhat??out of sorts.?? No cough or sputum production. ??No abdominal pain, nausea or vomiting.?? He is having significant muscle spasticity due to his MS.?? States that baclofen and gabapentin have not helped in the past. ?? Had a recent hospitalization??November 17 after falling out of the wheelchair and being found down for a few days.?? While he was still residing at home.?? He was found to have a UTI while in the hospital and also with rhabdomyolysis.?? Culture did not grow.?? He had urinary retention after the Valdez catheter was placed and he failed voiding trials.?This, he was discharged to his facility witha Valdez catheter as well as on Flomax and finasteride.?? He was apparently started on baclofen??during this hospitalization as well. Review of Systems Constitutional:??No weight loss, fever, chills. + weakness and fatigue Allergy/Immune: Denies any??Eczema or hives Eyes:??No visual loss, blurred vision, double vision or yellow sclera ENT:??No hearing loss, sneezing, congestion, runny nose or sore throat. Respiratory:??No shortness of breath, cough or sputum production. Cardiovascular:??No chest pain, chest pressure or chest discomfort. No palpitations or pedal edema. Gastrointestinal:??No anorexia, nausea, vomiting or diarrhea. No abdominal pain or blood in stool. Genitourinary:??No burning micturition. No urinary frequency or incontinence. Neurologic:??No headache, dizziness, syncope, unilateral weakness, ataxia, numbness or tingling in the extremities. No change in bowel or bladder control. Musculoskeletal:??No muscle pain, back pain, joint pain or stiffness. + muscle spasticity Hematologic/Lymphatics:??No bleeding or bruising. No painful lymph nodes. Skin:??No rash or itching. Endocrine:??No reports of sweating. No cold or heat intolerance. No polyuria or polydipsia. Psychiatric:??No depression or anxiety. Physical Exam Vitals & Measurements T:??98.5?F?? TMIN:??97.6?F?? TMAX:??100.2?F?? HR:??67??(Peripheral)?? RR:??15?? BP:??95/64?? SpO2:??100%?? Constitutional: Alert, in no distress. Ill appearing middle aged male Mental Status: Oriented to person, place and time. Head: Normocephalic. Eyes: Pupils are equal, round and reactive to light. Extraocular muscles intact. Ear, Nose and Throat: Oropharynx clear, mucous membranes moist. Neck: Supple, Full range of motion. Respiratory: Clear to auscultation. No wheezing, rales or rhonchi. Cardiovascular: S1 S2 regular. No murmurs, rubs or gallops. Gastrointestinal: Abdomen soft, non-tender, non-distended. Genitourinary: No noted lesions at the urethral meatus Neurologic: Cranial nerves II-XII grossly intact. No focal neurological deficits. Skin: No rashes or lesions. No petechiae or purpura.?? Small area of erythema on sacrum Musculoskeletal: No cyanosis or clubbing. No gross deformities. Normal range of motion. Psychiatric: Normal mood and affect Assessment/Plan 52-year-old male??with??multiple sclerosis, recently admitted to the hospital for urinary tract infection rhabdomyolysis presents to the??hospital??for sepsis likely secondary to urinary tract infection. ?? Problem list: Sepsis likely secondary to UTI Multiple Sclerosis Normocytic normochromic anemia ?? Hypotension appears to have resolved with 2 L of fluid resuscitation He was given vancomycin and Zosyn in the emergency room As presumed source appears to be , continue Rocephin for now Does not appear to have a pulmonary source of infection He does have some mild erythema of the sacrum but no decubitus ulcers If white count does not defervesce, consider renal ultrasound??or further abdominal imaging ?? Reports having??poor tolerance of baclofen and??gabapentin for his muscle spasticity Use oxycodone as needed for pain ?? Renal function appears to have improved after treatment for rhabdomyolysis ?? DVT prophylaxis: Lovenox GI prophylaxis: None indicated Fluids, electrolytes, nutrition: No fluids, electrolytes were monitored and repleted as necessary.?? Patient can continue normal diet ?? CODE STATUS: Full ?? Case discussed with the attending, Dr. Diego ?? Dayday Nunn DO PGY-5 Problem List/Past Medical History Ongoing Fall from wheelchair MS (multiple sclerosis) Rhabdomyolysis Urinary retention UTI (urinary tract infection) Weakness Procedure/Surgical History None reported Medications Inpatient Acetaminophen Tablet, 650 mg, By Mouth, Every 4 hours, PRN Docusate/Senna Tablet, 1 tablet, By Mouth, 2 times a day, PRN Enoxaparin Inj, 40 mg= 0.4 mL, Subcutaneous Injection, Every 24 hours finasteride 5 mg oral tablet, 5 mg, By Mouth, Daily Flomax 0.4 mg oral capsule, 0.4 mg, By Mouth, Daily at bedtime gabapentin 100 mg oral capsule, 100 mg, By Mouth, 3 times a day LR Bolus 1,000 mL, 1000 mL, IV Infusion, Once Melatonin Tablet, 3 mg, By Mouth, Daily at bedtime, PRN MiraLax Powder, 17 Gm= 1 pack/packet, By Mouth, Daily, PRN mirtazapine 15 mg oral tablet, 7.5 mg, By Mouth, Daily at bedtime NaCL 0.9% Flush, 3 mL, IV Push, Every 8 hours NaCL 0.9% Flush, 3 mL, IV Push, Every 8 hours, PRN oxyCODONE 5 mg oral tablet, 5 mg, By Mouth, Every 6 hours, PRN Rocephin Inj, 1 Gm, IVPB, Every 24 hours Home finasteride 5 mg oral tablet, 5 mg= 1 tablet, By Mouth, Daily Flomax 0.4 mg oral capsule, 0.4 mg, By Mouth, Daily at bedtime gabapentin 100 mg oral capsule, 100 mg, By Mouth, 3 times a day mirtazapine 7.5 mg oral tablet, 7.5 mg, By Mouth, Daily at bedtime Allergies NKA Social History Tobacco Use: 5-9 cigarettes (between 1/4 to 1/2 pack)/day in last 30 days. Family History None reported * Brandie STAPLES, Linda Pinzon: PERFORM Event Display: Admission Note Authored Date: [id number] Attending attestation.??Patient seen and examined on Dec 02. Reviewed HPIMARY. I have independently examined the patient, confirmed physical exam findings and developed the plan with the resident. Agree with assessment and plan that as outlined in Dr. Nunn's note. ?? 52-year-old man with history of multiple sclerosis, wheelchair-bound, depression, nicotine dependence, recent admission on November 12 to [facility] after a fall where he was found to have significant urinary retention, rhabdomyolysis and presumed UTI. Urology had to be consulted and there was diff iculty with Valdez placement. Was started on finasteride and Flomax and subsequently discharged to [facility] and subsequently to [facility]. He now presents for evaluation of abnormal labwork with concerns for sepsis. Prehospital white cell count was 31.7 and he was noted to be hypotensive while in EMS care with BP as low as 75/35. Upon presentation, rectal temperature was 100.2, blood pressure 95/64. Labs notable for white cell count of 26.1 with left shift, hemoglobin 13.5, hematocrit 40.2, random glucose 67. Lactate 1.4 followed by 1.9. High-sensitivity troponin 27 and 31. COVID 19 PCR was negative. Urinalysis with 3+ hemoglobin, 2+ leukocyte, 38 WBCs and 74 RBCs. Two-view chest x-ray which I personally reviewed was reported as no acute abnormality. Blood cultures were drawn, urine culture collected. He was given LR bolus 1 L x 2 and 1 dose each of Zosyn and vancomycin. ?? UA concerning for UTI but no bacteria seen. Unclear if the specimen was taken after catheter was replaced - he has had this catheter since Nov 21 when he had urinary retention. Other consideration for infectious etiology - no infiltrates on CXR and he saturating well on room air, no cough or dyspnea. No obvious skin ulcers or cellulitis. Has been getting DVT prophylaxis at the rehab so less likely to be DVT but will be considered if other infectious etiology rules out. Monitor Blood and urine cultures MS was diagnosed over 10 years ago and was initially on treatment but he could tolerate it after about 6 months. EKG study * Event Display: ECG 12-Lead Authored Date: [id number] Please click on pdf link to open report * Event Display: ECG 12-Lead Authored Date: Ventricular Rate: 68 BPM Atrial Rate: 68 BPM P-R Interval: 156 ms QRS Duration: 90 ms Q-T Interval: 394 ms QTC Calculation(Bazett): 418 ms P [place]: 74 degrees R [place]: 25 degrees T [place]: 72 degrees Baseline artifact Normal sinus rhythm Normal ECG When compared with ECG of 12-NOV-2022 02:52, No significant change was found Confirmed by MATHIEU STAPLES, [facility] ([id number]) on 12/02/2022 7:39:07 PM Cody: MATHIEU STAPLES,[facility] Progress note * Alexia Driver: VERIFY, PERFORM, SIGN Event Display: [facility] Authored Date: [id number] Patient: JD FRAZIER Age: 52 years Sex: Male : 1970 Associated Diagnoses: None Author: Alexia Driver Findings Problem Related to Alteration in Genitourinary : Alteration in Genitourinary Function/new 12/08/2022 13:00 EDT Alteration in Status Related to UTI Goals & Outcomes, Genitourinary Pt will achieve normal/improved fluid balance, Pt will maintainadequate GI function appropriate for pt, Pt will maintain adequate function appropriate for pt, Pt will maintain normal fluid balance, Pt will resume normal pattern of elimination, Pt/caregiver will state understanding of self-care skills Interventions, Assess/monitor/maintain Genitourinary status, Assist & encourage pt with meticulous jonathon care, Encourage PO fluid intake as allowed by diet BH Goals/Interventions, Genitourinary Yes Genitourinary, Problem Start 12/04/2022 1:52 Reviewed Plan with, Genitourinary Patient Patient Progression, Genitourinary Patient progressing according to plan Genitourinary, Problem Ongoing Yes . Evaluation Patient continues on acute care. Patient A/O x4 VSS. Pain well controlled on current regimen. Lung sounds are clear and slightly diminished on room air. Abdomen is soft, round and non-tender. Tolerating regular diet. Chronic valdez cath in place with clear yellow urine. Wheelchair bound at baseline.PIV removed. Patient verbalized understanding of discharge instructions. EMS transport to [facility]. See flowsheets for full assessment.. Discharge Information Case Management Discharge Plan : Case Management Discharge Plan Data 12/08/2022 16:40 EDT Discharge Level of Care at Discharge Inpatient Rehab Facility/Unit Discharge Nursing Homes[facility] 12/08/2022 13:02 EDT Discharge Level of Care at Discharge Inpatient Rehab Facility/Unit Discharge Nursing Homes/[facility] Discharge Transportation Arranged [facility] [address] [place] [address] Mode of Transportation Arranged Ambulance Name of Agency #1 [facility] #1 Intake Service Categories #1 Physical Therapy, Prison Service Comments #1 You are transferring to [facility] today for penitentiary and physical therapy. 12/04/2022 15:19 EDT Discharge Nursing Homes/Rehab Facilities [facility] [phone] Rehabilitation Discharge : Rehab Discharge Index 12/08/2022 8:39 EDT Full chart review completed Not Done: Task Duplication (Not Done) 12/07/2022 12:00 EDT Comments on treatment indicated Per PM&R pt does not need OT at hospital setting. Full chart review completed Yes Hospital course Per PM&R pt does not need OT eval, (12/07) will complete at rehab. Please consider adding eval orders for OT if needed for d/c to rehab. 12/04/2022 8:15 EDT Comments on treatment indicated 52 y/o M PMH of multiple sclerosis, recently admitted to the hospital for urinary tract infection rhabdomyolysis presents to the hospital for sepsislikely secondary to urinary tract infection. WBAT Full chart review completed Yes Hospital course see comment Other findings Pt is a moderate complexity evaluation as circumstances leading to hospitalization impact POC and functional mobility. Plan of care PT Gait training, Transfer training, Therapeutic exercise, Functional Activities, Balance training, Neuromuscular education * Vera Merrill RN: PERFORM, SIGN, VERIFY Event Display: Progress Note Hospital Authored Date: [id number] Patient: JD FRAZIER Age: 52 years Sex: Male : 1970 Associated Diagnoses: None Author: Vera Merrill RN Findings Problem Related to Alteration in Genitourinary : Alteration in Genitourinary Function/new 12/07/2022 22:00 EDT Alteration in Status Related to UTI Goals & Outcomes, Genitourinary Pt will achieve normal/improved fluid balance, Pt will maintainadequate GI function appropriate for pt, Pt will maintain adequate function appropriate for pt, Pt will maintain normal fluid balance, Pt will resume normal pattern of elimination, Pt/caregiver will state understanding of self-care skills Interventions, Assess/monitor/maintain Genitourinary status, Assist & encourage pt with meticulous jonathon care, Encourage PO fluid intake as allowed by diet BH Goals/Interventions, Genitourinary Yes Genitourinary, Problem Start 12/04/2022 1:52 Reviewed Plan with, Genitourinary Patient Patient Progression, Genitourinary Patient progressing according to plan Genitourinary, Problem Ongoing Yes . Nursing Data Cardiac Data. 12/07/2022 20:45 EDT Cardiovascular WNL . Gastrointestinal Data. : Gastrointestinal Data. 12/07/2022 20:45 EDT Last Bowel Movement 12/02/2022 GI WNL . Genitourinary Data. : Genitourinary Data. 12/07/2022 20:45 EDT Urinary catheter type Single Lumen Indwelling Urinary Catheter Date and Time of Insertion 12/02/2022 19:57 Urine Description Clear WNL except . Integumentary Data. : Integumentary Data. 12/07/2022 20:45 EDT Skin Color Normal for ethnicity Skin Integrity Not intact Sensory Perception No impairment Integumentary WNL except . Musculoskeletal Data. : Musculoskeletal Data. 12/07/2022 20:45 EDT Musculoskeletal WNL . Neurological Data. : Neurological Data. 12/07/2022 20:45 EDT Neurological Symptoms None Level of Consciousness Full Consciousness Orientated to person, place, time Person, Place, Time, Event Neuro WNL except Memory Intact . Vital Signs : VITAL SIGNS SECTION 12/08/2022 0:00 EDT Temperature 97.5 DegF Temperature Route Oral Pulse Rate 60 bpm Respiratory Rate 18 br/min Systolic Blood Pressure 98 mm Hg Diastolic Blood Pressure 61 mm Hg Blood pressure sites Arm, right Pulse Pressure 37 mm Hg Oxygen Saturation 96 % Mode of Delivery (Oxygen) Room air . Pain Data : PAIN SECTION 12/07/2022 20:49 EDT Pain Intensity 6 . Evaluation Patient is alert and oriented times3 , Lung sounds clear . Positive pedal pulses . Abdomen soft positive bowel sounds , Tolerating Regular diet , no c/o nausea or vomiting.Valdez cath patent u/o at 2am 450 cc. Penile lesion -batroban and nystatin applied. Mepilex to buttoks intact . Patient resting comfortably at present time. Plan of care ongoing.. * Bibiana Balderas RN: PERFORM, MODIFY, SIGN, VERIFY Event Display: Progress Note Hospital Authored Date: Patient: JD FRAZIER Age: 52 years Sex: Male : 1970 Associated Diagnoses: None Author: Bibiana Balderas RN Findings Evaluation Pt A&OX3, pleasant. VSS, afebrile. No edema noted +pp. Lungs CTA, denies SOB or chest pain. Abdomen SNT + bsx4, tolerating po no c/o n/v. no Bm since 12/02, miralax and prn meds given as orderd, no effect thus far, + flatus. Valdez patent draining clear yellow urine, valdez care performed per protocol. Skin intact but reddened spot noted to coccyx + [place], mepilex applied for protection . Pt con tinues to have frequent muscle spasms, baclofen given as orderd, patient reporting this am baclofennot helping much but makes him incapacitated , MD notified and in to speak with patient. Patien agreeable to try plan of stopping oxycodone and increase baclofen dose. Wound noted to underside end of penis/urethral meatus area, cleansed and ointments applied as ordered, cream application staggeredgiles STAPLES order. IV abx given as ordered. Patient updated on plan of care. Remains on centrea bed, assisted to T&R every 2 hrs and prn. Patient resting in bed, will continue to assess.. Note * Alexia Driver: PERFORM Event Display: Discharge/Transfer Note Hospital Authored Date: Nursing Discharge Note Entered On: 12/08/2022 16:40 EDT Performed On: 12/08/2022 16:40 EDT by Alexia Driver Nursing Discharge Note 2 Discharge Time : 12/08/2022 16:40 EDT Discharge Level of Care at Discharge : Inpatient Rehab Facility/Unit Discharge Nursing Homes/Rehab Facilities : [facility] [place] Patient Left Unit Via : Ambulance Patient Accompanied Off Unit with : Ambulance/Chair Van Personnel Handover Given to Transport Personnel : Yes DC Instructions Provided & Signed by Pt : Yes Patient Understands D/C Instructions : Yes Patient Instructions Discharge Signed : Yes Did Pt have Specialty Bed or Wound Vac : No Alexia Driver - 12/08/2022 16:40 EDT * Jose Eduardo STAPLES, Noor: PERFORM Event Display: Discharge/Transfer Note Hospital Authored Date: [id number] Patient: ??JD FRAZIER ? Age:??52 Years?Sex:??Male?:??1970?? Patient Information Discharge Location: W3 Primary Care Physician: Jalen Obando NP, Lyla Fritz Admit Date/Time: 12/02/22 16:56 Discharge Disposition Discharge Disposition: ?? Discharge Diagnosis MS (multiple sclerosis) (G35) Spasticity (R25.2) Other specified health status (Z78.9) Impaired mobility and activities of daily living (Z74.09) Hypotension (I95.9) Sepsis (A41.9) Complicated UTI Chronic Valdez catheter _ Discharge Medications Acetaminophen (acetaminophen 325 mg oral tablet)?650?Milligram?2?tablet?By Mouth?Every 4 hours?as needed?pain/fever >100F Baclofen (baclofen 5 mg oral tablet)?5?Milligram?By Mouth?3 times a day Bisacodyl (bisacodyl 10 mg rectal suppository)?1?suppository(ies)?10?Milligram?Rectally?Every 72 hours?as needed?if no BM in 3 days Clotrimazole Topical (clotrimazole 1% topical cream)?apply to meatus?Topically?2 times a day Enoxaparin (enoxaparin 40 mg/0.4 mL injectable solution)?0.4?Milliliter?40?Milligram?Subcutaneous Injection?Daily?Started 11/30/22 Finasteride (finasteride 5 mg oral tablet)?1?tab(s)?5?Milligram?By Mouth?Daily Milk of Magnesia (MOM Liquid)?30?Milliliter?By Mouth?Every 72 hours?as needed?if no BM in 3 days Mirtazapine (mirtazapine 7.5 mg oral tablet)?7.5?Milligram?By Mouth?Daily at bedtime Mupirocin Topical (Mupirocin Topical Oint)?1?applicator?Topically?2 times a day?for 30?Days?Penile meatus Nicotine (nicotine 21 mg/24 hr transdermal film, extended release)?1?patch(es)?Topically?Daily Nystatin Topical?1?applicator?Topically?3 times a day Sodium Biphosphate-Sodium Phosphate (Fleet Enema 19 gm-7 gm rectal enema)?1?Each?Rectally?Every 72 hours?as needed?if no BM in 3 days Tamsulosin (Flomax 0.4 mg oral capsule)?0.4?Milligram?By Mouth?Daily at bedtime ? Medications Started Baclofen 5 mg 3 times daily Nystatin topical cream Mupirocin topical cream for penile lesion Allergies Allergies ?(Active and Proposed Allergies Only) NKA? (Severity: Unknown severity, Onset: Unknown) ? Future Appointments Thursday 3:20 PM EDT ?? With: Jalen Obando SENIOR TECHNICAL PROJECT MANAGER, Lyla Fritz Where: [facility] [address] [place] [address]- Status: Pending 2022 1:00 PM EST ?? With: Franklin STAPLES, Juan Where: [facility] [address] [facility] [facility] [address] [place] [address]- Status: Pending Hospital Course 52-year-old male with PMH of multiple sclerosis, recently admitted to the hospital for urinary tract infection rhabdomyolysis presents to the hospital for sepsis likely secondary to urinary tract infection, UTI with pseudomonas, but unclear if truly has UTI, Neurology consult for MS management??dueto worsening??lower extremity spasticity. In ED, noted to have penile erythema, small amount of white purulent drainage noted at the penile meatus, (was on topical mycolog II and oral keflex outpatient)- has small lesion under meatus, no pus or erythema noted. Valdez catheter replaced in ED??on admission. ??Urology was consulted??patient declined suprapubic catheter.?He??wants to continue with??penile catheter only.?I want to go through with any other procedure.?Patient has been on Rocephin.?ID consulted and they recommended 1 week of??antibiotic course??from 12/02-.?Today's lastday of IV antibiotic.?Clinically continued to improve.?Patient has been??given a trial of oxy/baclofen/clonazepam for his spasticity.??PMNR has been on board??.?Patient could not tolerate??10 mg 3 times daily dose of baclofen which made him more??sleepy??neither could??tolerate oxycodone.?Plan is to??discharge patient on baclofen 5 mg 3 times daily??with as needed clonazepam??for spasticity.?Patient is being discharged to acute rehab-PM&R will continue to follow further. ?? Recommendations: ?? Continue topical nystatin for penile lesion and?? mupirocin. -Completed antibiotic course for UTI?? -Take baclofen 5 mg??twice daily??. -Patient did not like oxycodone while inpatient??will increase doses of baclofen??which made him more tired and sleepy??. -Clonazepam??trial was given while inpatient but he??used only 1 dose??-did not help with spasm much. -PM&R will continue to follow after discharge at acute rehab. They will follow- up outpatient-wewill likely discuss option of baclofen pump.?? -Patient will need outpatient MRI for further evaluation of his multiple sclerosis. Neurology will follow up outpatient.?? -Continue rest of home medications as before Objective Vital Signs?? Temperature: 97.9 DegF (12/08/22 07:35:00) Temperature Route: Oral (12/08/22 07:35:00) Pulse Rate: 56 bpm (12/08/22 07:35:00) Respiratory Rate: 18 br/min (12/08/22 08:58:00) Systolic Blood Pressure: 111 mm Hg (12/08/22 07:35:00) Diastolic Blood Pressure: 55 mm Hg (12/08/22 07:35:00) Blood pressure sites: Arm, right (12/08/22 07:35:00) Mean Arterial Pressure: 74 mm Hg (12/08/22 07:35:00) Pulse Pressure: 56 mm Hg (12/08/22 07:35:00) Oxygen Saturation: 98 % (12/08/22 07:35:00) Mode of Delivery (Oxygen): Room air (12/08/22 07:35:00) Early Warning Score: 2 (12/08/22 09:03:29) ? . Physical Exam Mental Status: Oriented to person, place and time. Eyes: Pupils are equal, round and reactive to light.?? Ear, Nose and Throat: Oropharynx clear, mucous membranes moist.?? Respiratory: Clear to auscultation No wheezing, rales or rhonchi. Cardiovascular: S1 S2 regular. Gastrointestinal: Abdomen soft, non-tender, non-distended. lower extremity spasticity:??Mostly MAsh??3 in the lower extremities. ??Difficult to assess??due tostrong spasms that are triggered with ranging. Pending Results Add On Lab Order ordered on 12/03/2022 Add On Lab Order ordered on 12/03/2022 Follow-Up Appointments Added Follow Up ?Time Frame ?Comments Jalen Obando SENIOR TECHNICAL PROJECT MANAGER, Lyla Fritz?1 to 2 weeks Patient Instructions Recommendations: ?? -Continue topical nystatin for penile lesion and?? mupirocin. -Completed antibiotic course for UTI?? -Take baclofen 5 mg??twice daily??. -Patient did not like oxycodone while inpatient??will increase doses of baclofen??which made him more tired and sleepy??. -Clonazepam??trial was given while inpatient but he??used only 1 dose??-did not help with spasm much. -PM&R will continue to follow after discharge at acute rehab. They will follow- up outpatient-pipo likely discuss option of baclofen pump.?? -Patient will need outpatient MRI for further evaluation of his multiple sclerosis. Neurology will follow up outpatient.?? -Continue rest of home medications as before Post Discharge Care Code Status: ?? Full Resuscitation Discharge ?12/08/22 14:14:00 EDT Discharge Prescriptions ?None, ??12/08/22 14:14:00 EDT Home Health Face to Face ^HomeHealthFTF Results Discharge Labs BLOOD COUNT & DIFF WBC 10.3 k/mm3 ()?? 12/07/2022 09:20 RBC 4.36 m/mm3 (Low)?? 12/07/2022 09:20 Hgb 12.8 Gm/dL (Low)?? 12/07/2022 09:20 Hct 37.7 % (Low)?? 12/07/2022 09:20 MCV 86.5 femtoliters ()?? 12/07/2022 09:20 MCH 29.4 pg ()?? 12/07/2022 09:20 MCHC 34.0 g/dL ()?? 12/07/2022 09:20 Platelet Count 416 k/mm3 ()?? 12/07/2022 09:20 RDW-SD 41.7 femtoliters ()?? 12/07/2022 09:20 MPV 8.5 femtoliters (Low)?? 12/07/2022 09:20 Nucleated RBC (Automated) 0.0 #/100 WBC'S ()?? 12/07/2022 09:20 Abs. NRBC 0.0 k/mm3 ()?? 12/07/2022 09:20 Abs. Neut 7.7 k/mm3 (High)?? 12/06/2022 01:21 Abs. Lymph 2.7 k/mm3 ()?? 12/06/2022 01:21 Abs. Ashe 1.2 k/mm3 ()?? 12/06/2022 01:21 Abs. Eo 0.3 k/mm3 ()?? 12/06/2022 01:21 Abs. Baso 0.1 k/mm3 ()?? 12/06/2022 01:21 Neut % 63.7 % ()?? 12/06/2022 01:21 Lymph % 22.4 % ()?? 12/06/2022 01:21 Ashe % 10.2 % ()?? 12/06/2022 01:21 Eos % 2.7 % ()?? 12/06/2022 01:21 Baso % 0.6 % ()?? 12/06/2022 01:21 RBC Morphology MARKED ()?? 12/02/2022 14:40 Imm Gran 0.4 % ()?? 12/06/2022 01:21 Abs. Imm Gran 0.1 k/mm3 ()?? 12/06/2022 01:21 ? CARDIAC High Sensitivity Troponin (HSTnT) 31 ng/L (High)?? 12/02/2022 17:57 ? CHEM GENERAL Sodium 138 mmol/L ()?? 12/08/2022 06:36 Potassium 4.5 mmol/L ()?? 12/08/2022 06:36 Chloride 101 mmol/L ()?? 12/08/2022 06:36 Bicarbonate Level 25 mmol/L ()?? 12/08/2022 06:36 Anion Gap 12 ()?? 12/08/2022 06:36 Glucose Level 82 mg/dL ()?? 12/08/2022 06:36 Glucose, POC 102 mg/dL (High)?? 12/02/2022 14:29 BUN 16 mg/dL ()?? 12/08/2022 06:36 Creatinine-Blood 0.9 mg/dL ()?? 12/08/2022 06:36 Estimated GFR Creatinine 99 ML/MIN/1.73 M2 ()?? 12/08/2022 06:36 Calcium 9.4 mg/dL ()?? 12/08/2022 06:36 Magnesium 1.9 mg/dL ()?? 12/05/2022 01:36 Protein, Total 5.4 Gm/dL (Low)?? 12/03/2022 04:50 Albumin 3.3 Gm/dL (Low)?? 12/03/2022 04:50 AG Ratio 1.6 ()?? 12/03/2022 04:50 Alkaline Phosphatase 79 units/L ()?? 12/03/2022 04:50 AST (SGOT) 21 units/L ()?? 12/03/2022 04:50 ALT (SGPT) 29 units/L ()?? 12/03/2022 04:50 Bilirubin, Total 0.3 mg/dL ()?? 12/03/2022 04:50 Vitamin B12 Level 660 pg/mL ()?? 12/03/2022 04:50 Lactate 1.9 mmol/L ()?? 12/02/2022 17:57 Iron Level 41 mcg/dL (Low)?? 12/03/2022 04:50 Iron Binding Capacity, Unsaturated 148 mcg/dL ()?? 12/03/2022 04:50 Iron Binding Capacity, Estimated Total 189 mcg/dL ()?? 12/03/2022 04:50 % Iron Saturation 22 % ()?? 12/03/2022 04:50 Ferritin Level 540 ng/mL (High)?? 12/03/2022 04:50 ?? HEME OTHER Hold Lavender Top SPECIMEN DISCARDED AFTER 24 HOURS. ()?? 12/08/2022 06:36 ? MISC. CHEMISTRY Hold Gel Top SPECIMEN DISCARDED AFTER 1 WEEK ()?? 12/07/2022 09:20 ? UA/URINALYSIS Appear/Color, Urine LIGHT YELLOW ()?? 12/02/2022 16:20 Specific [place], Urine 1.023 ()?? 12/02/2022 16:20 pH, Urine 5.5 ()?? 12/02/2022 16:20 Albumin, Urine 1+ (Abnormal)?? 12/02/2022 16:20 Glucose, Urine NEGATIVE (N)?? 12/02/2022 16:20 Ketones, Urine NEGATIVE (N)?? 12/02/2022 16:20 Bilirubin, Urine NEGATIVE (N)?? 12/02/2022 16:20 Hemoglobin, Urine 3+ (Abnormal)?? 12/02/2022 16:20 Nitrite, Urine NEGATIVE (N)?? 12/02/2022 16:20 Leukocyte, Urine 2+ (Abnormal)?? 12/02/2022 16:20 Urobilinogen NORMAL mg/dL (N)?? 12/02/2022 16:20 WBC's, Urine 38 /HPF (High)?? 12/02/2022 16:20 RBC's, Urine 74 /HPF (High)?? 12/02/2022 16:20 Squamous Epith <1 /HPF ()?? 12/02/2022 16:20 Mucus SLIGHT /LPF ()?? 12/02/2022 16:20 Hold Urine Culture Testing available 48 hours from time of collection. ()?? 12/02/2022 16:20 ?? URINE OTHER Est Creatinine Clearance 100.61 mL/min ()?? 12/08/2022 07:32 ? VIROLOGY COVID-19 by RT-PCR NEGATIVE ()?? 12/02/2022 14:41 ? _50 ??minutes spent on discharge * Event Display: Discharge/Transfer Note Hospital Authored Date: * Maria Elena Mcarthur RN: PERFORM, SIGN, VERIFY Event Display: Case Management Discharge Plan Authored Date: [id number] Patient: JD FRAZIER Age: 52 years Sex: Male : 1970 Associated Diagnoses: None Author: Maria Elena Mcarthur RN Discharge Plan Case Management Discharge Plan : Case Management Discharge Plan Data 12/08/2022 13:02 EDT Discharge Level of Care at Discharge Inpatient Rehab Facility/Unit Discharge Nursing Homes/Rehab Facilities [facility] [place] Discharge Transportation Arranged [facility] [address] [place] [address] Mode of Transportation Arranged Ambulance Name of Agency #1 [facility] Foreman #1 Intake Service Categories #1 Physical Therapy, Prison Service Comments #1 You are transferring to [facility] today for penitentiary and physical therapy. 12/04/2022 15:19 EDT Discharge Nursing Homes/Rehab Facilities [facility] [phone] * Alexia Driver: PERFORM Event Display: Patient Education/Instruction Authored Date: [id number] Inpatient Adult Discharge Instructions [address] [address] Name: JD FRAZIER : 1970 Visit: 12/02/2022 16:56:00 Current Date: 12/08/2022 16:08 Account: [id number] Inpatient Adult Discharge Instructions We would like [...] and their families. Surveys are administered by [employer] ?? If further treatment with your primary care physician or another doctor is recommended, it is important for you to keep the appointment. Call your primary care physician or return to the Emergency Department immediately if your condition worsens, fails to improve, or new symptoms develop. If you need to find a doctor, you can call [facility] for a referral at [phone] or toll free at [phone] or log in to [email or web address].. ?? [facility], in keeping with [place] guidance, no longer requires face masks for [...] a health care robert of your choosing. [employer] is a website that allows you to securely view your medical information including your hospital discharge summary, office visit summaries, medications and follow-up visits. You can also request appointments, renew medications, and request access to your medical information using a health care robert of your choosing, or just ask a question. You can enroll at [email or web address] or register during your next office visit. You have been discharged from [facility], Patient Care Unit: W3. If you have any questions regarding these instructions after you leave, please call us and we will be happy to assist you. [facility] Your Care Team Attending Physician Jose Eduardo STAPLES, Noor Consulting Providers Juan Reid MD Discharging Providers Jose Eduardo STAPLES, Noor Reason for Admission Lab test findings, Sepsis - possible Your Diagnosis Hypotension Sepsis MS (multiple sclerosis) Spasticity Other specified health status Impaired mobility and activities of daily living Tests Performed Below is a partial list of the tests performed during your hospitalization. You may have had other tests and procedures not included in this list. Please discuss all test results with your provider. Basic Metabolic Panel BUN CBC CBC w/ Differential Comprehensive Metabolic Panel COVID-19 (Novel Coronavirus), Rapid PCR Creatinine Electrolytes FERRITIN GLUCOSE POC High??Sensitivity??Troponin T HOLD GEL TUBE HOLD LAVENDER TUBE IRON & TIBC Lactate Level Magnesium Level Potassium Level Troponin T, High Sensitivity Urinalysis w/hold for Urine Culture VITAMIN B12 CT Head/Brain W/O Contrast XR Chest 2 Views Frontal and Lat Primary Care Provider Jalen Obando NP, Lyla Fritz Advance Directive Health Care Proxy on File Yes - Health Care Proxy Discharge Vitals Temperature: 98.6 DegF Height: 179 cm Pulse Rate: 60 bpm Weight: 75.9 kg Respiratory Rate: 18 br/min Body Mass Index: 23.69 kg/m2 Systolic Blood Pressure: 98 mm Hg Body surface area: 1.94 Diastolic Blood Pressure: 59 mm Hg ?? Oxygen Saturation: 95 % ?? Studies Pending All tests and labs ordered during this hospital stay have been completed unless listed below. Please discuss all pending results with your provider listed above in these instructions. ?? Add On Lab Order What to do next Instructions From Your Doctor Recommendations: ?? -Continue topical nystatin for penile lesion and?? mupirocin. -Completed antibiotic course for UTI?? -Take baclofen 5 mg??twice daily??. -Patient did not like oxycodone while inpatient??will increase doses of baclofen??which made him more tired and sleepy??. -Clonazepam??trial was given while inpatient but he??used only 1 dose??-did not help with spasm much. -PM&R will continue to follow after discharge at acute rehab. They will follow- up outpatient-pipo likely discuss option of baclofen pump.?? -Patient will need outpatient MRI for further evaluation of his multiple sclerosis. Neurology will follow up outpatient.?? -Continue rest of home medications as before Discharge Orders Code Status:?? Full Resuscitation Scheduled Follow-Up Appointments Thursday 3:20 PM EDT ?? With: Jalen Obando NP, Lyla Fritz Where: [facility] [address] [place] [address]- Status: Pending 2022 1:00 PM EST ?? With: Juan Reid MD Where: [facility] [address] [facility] [facility] [address] [place] [address]- Status: Pending You Need to Schedule the Following Appointments Follow Up with??Jalen Obando NP, Lyla Fritz When:??Within 1 to 2 weeks Where: [address] [facility] [place] [address]- Discharge Medications JD FRAZIER :1970 Visit Date:12/02/2022 Medications: Please continue your medications until treatment is completed or stopped by your provider. Medications not listed below should be discontinued. Discuss any questions related to medications with your provider. What How Much When Instructions Next Dose New Baclofen (baclofen 5 mg oral tablet) 5 Milligram Oral 3 times a day 12/09 1999 New Mupirocin Topical (Mupirocin Topical Oint) 1 applicator Topically Twice a day Duration: 30 Days Refills: 1 Penile meatus ?? 12/09 1999 New Nystatin Topical 1 applicator Topically 3 times a day 12/09 1999 ?? Unchanged Acetaminophen (acetaminophen 325 mg oral tablet) 2 tab(s) Oral Every 4 hours as needed for pain/fever >100F Unchanged Bisacodyl (bisacodyl 10 mg rectal suppository) 1 suppository(ies) Per rectum Every 72 hours as needed for if no BM in 3 days Unchanged Clotrimazole Topical (clotrimazole 1% topical cream) apply to meatus Topically Twice a day Unchanged Enoxaparin (enoxaparin 40 mg/ 0.4 mL injectable solution) 0.4 Milliliter Subcutaneous Injection Daily Started ?? Unchanged Finasteride (finasteride 5 mg oral tablet) 1 tab(s) Oral Daily Unchanged Milk of Magnesia (MOM Liquid) 30 Milliliter Oral Every 72 hours as needed for if no BM in 3 days Unchanged Mirtazapine (mirtazapine 7.5 mg oral tablet) 7.5 Milligram Oral Daily at Bedtime Unchanged Nicotine (nicotine 21 mg/ 24 hr transdermal film, extended release) 1 patch(es) Topically Daily Unchanged Sodium Biphosphate-Sodium Phosphate (Fleet Enema 19 gm-7 gm rectal enema) 1 Each Per rectum Every 72 hours as needed for if no BM in 3 days Unchanged Tamsulosin (Flomax 0.4 mg oral capsule) 0.4 Milligram Oral Daily at Bedtime ?? What How Much When Comments Stop Taking Cephalexin (cephalexin monohydrate 500 mg oral capsule) 1 capsule Oral Every 8 hours Duration: 5 Days Until meatus infec ?? Stop Taking Oxycodone (oxyCODONE 5 mg oral tablet) 1 tab(s) Oral Every 6 hours as needed for moderate pain Test Results Below is a partial list of the most recent Laboratory test results done prior to this discharge. You may have had other tests and procedures not included in this list. Please discuss all test resultswith your provider. Est Creatinine Clearance - 100.61 mL/min (12/08/2022) Basic Metabolic Panel (12/08/2022) ???Sodium - 138 mmol/L???Potassium - 4.5 mmol/L???Chloride - 101 mmol/L???Bicarbonate Level - 25 mmol/L???Anion Gap - 12???Glucose Level - 82 mg/dL???BUN - 16 mg/dL???Creatinine-Blood - 0.9 mg/dL???Estimated GFR Creatinine - 99 ML/MIN/1.73 M2???Calcium - 9.4 mg/dL BUN (12/06/2022) ???BUN - 15 mg/dL CBC (12/07/2022) ???WBC - 10.3 k/mm3???RBC - 4.36 m/mm3???Hgb - 12.8 Gm/dL???Hct - 37.7 %???MCV - 86.5 femtoliters???MCH - 29.4 pg???MCHC - 34.0 g/dL???Platelet Count - 416 k/mm3???RDW-SD - 41.7 femtoliters???MPV - 8.5 femtoliters???Nucleated RBC (Automated) - 0.0 #/100 WBC'S???Abs. NRBC - 0.0 k/mm3 CBC w/ Differential (12/06/2022) ???WBC - 12.0 k/mm3???RBC - 4.05 m/mm3???Hgb - 11.9 Gm/dL???Hct - 35.4 %???MCV - 87.4 femtoliters???MCH - 29.4 pg???MCHC - 33.6 g/dL???Platelet Count - 391 k/mm3???RDW-SD - 43.1 femtoliters???MPV - 8.9 femtoliters???Nucleated RBC (Automated) - 0.0 #/100 WBC'S???Abs. NRBC - 0.0 k/mm3???Abs. Neut - 7.7 k/mm3???Abs. Lymph - 2.7 k/mm3???Abs. Ashe - 1.2 k/mm3???Abs. Eo - 0.3 k/mm3???Abs. Baso - 0.1 k/mm3???Neut % - 63.7 %???Lymph % - 22.4 %???Ashe % - 10.2 %???Eos % - 2.7 %???Baso % - 0.6 %???Imm Gran - 0.4 %???Abs. Imm Gran - 0.1 k/mm3 Comprehensive Metabolic Panel (12/03/2022) ???Sodium - 138 mmol/L???Potassium - 4.2 mmol/L???Chloride - 104 mmol/L???Bicarbonate Level - 26 mmol/L???Anion Gap - 8???Glucose Level - 79 mg/dL???BUN - 10 mg/dL???Creatinine-Blood - 0.8 mg/dL???Estimated GFR Creatinine - 107 ML/MIN/1.73 M2???Calcium - 8.3 mg/dL???Protein, Total - 5.4 Gm/dL???Albu min - 3.3 Gm/dL???AG Ratio - 1.6???Alkaline Phosphatase - 79 units/L???AST (SGOT) - 21 units/L???ALT (SGPT) - 29 units/L???Bilirubin, Total - 0.3 mg/dL COVID-19 (Novel Coronavirus), Rapid PCR (12/02/2022) ???COVID-19 by RT-PCR - NEGATIVE Creatinine (12/06/2022) ???Creatinine-Blood - 0.7 mg/dL???Estimated GFR Creatinine - 110 ML/MIN/1.73 M2 Electrolytes (12/06/2022) ???Sodium - 137 mmol/L???Potassium - 4.4 mmol/L???Chloride - 101 mmol/L???Bicarbonate Level - 24 mmol/L???Anion Gap - 12 FERRITIN (12/03/2022) ???Ferritin Level - 540 ng/mL GLUCOSE POC (12/02/2022) ???Glucose, POC - 102 mg/dL High??Sensitivity??Troponin T (12/02/2022) ???High Sensitivity Troponin (HSTnT) - 27 ng/L HOLD GEL TUBE (12/07/2022) ???Hold Gel Top - SPECIMEN DISCARDED AFTER 1 WEEK HOLD LAVENDER TUBE (12/08/2022) ???Hold Lavender Top - SPECIMEN DISCARDED AFTER 24 HOURS. IRON & TIBC (12/03/2022) ???Iron Level - 41 mcg/dL???Iron Binding Capacity, Unsaturated - 148 mcg/dL???Iron Binding Capacity, Estimated Total - 189 mcg/dL???% Iron Saturation - 22 % Lactate Level (12/02/2022) ???Lactate - 1.9 mmol/L Magnesium Level (12/05/2022) ???Magnesium - 1.9 mg/dL Potassium Level (12/02/2022) ???Potassium - 4.1 mmol/L Troponin T, High Sensitivity (12/02/2022) ???High Sensitivity Troponin (HSTnT) - 31 ng/L Urinalysis w/hold for Urine Culture (12/02/2022) ???Appear/Color, Urine - LIGHT YELLOW???Specific [place], Urine - 1.023???pH, Urine - 5.5???Albumin, Urine - 1+???Glucose, Urine - NEGATIVE???Ketones, Urine - NEGATIVE???Bilirubin, Urine - NEGATIVE???Hemoglobin, Urine - 3+???Nitrite, Urine - NEGATIVE???Leukocyte, Urine - 2+???Urobilinogen - NORMAL???WBC's, Urine - 38 /HPF? ?RBC's, Urine - 74 /HPF? ?Squamous Epith - <1 /HPF? ?Mucus - SLIGHT? ?Hold Urine Culture - Testing available 48 hours from time of collection. VITAMIN B12 (12/03/2022) ???Vitamin B12 Level - 660 pg/mL Allergies (NKA means No Known Allergies) NKA Problems Active Problems??(6) Fall from wheelchair?? MS (multiple sclerosis)?? Rhabdomyolysis?? Urinary retention?? UTI (urinary tract infection)?? Weakness?? Education Materials Below is the list of Educational Leaflet Providered with your Discharge Instructions. Valuables and Belongings I fully understand and agree that [facility] accepts no responsibility for all my personal [...] to send valuables and belongings home. ?? No Valuables/Belongings: No valuables/belongings present Review of Valuable and Belonging List: With patient Date for Pt to Sign Valuables/Belongings: 12/03/22 16:48:00 ?? Other Discharge Information ?? Wound Assessment?? Wound Assessment?? Wound Location I: Perineal Wound Type I: Traumatic Wound Wound I, Present on Admission: Yes ?? Case Management Discharge Plan?? Discharge Plan?? Discharge Agency Information?? Discharge Level of Care at Discharge: Inpatient Rehab Facility/Unit Name of Agency #1: [facility] Discharge Transportation Arranged: [facility] [address] [facility] ??[phone] Agency [address] Foreman #1: Intake Mode of Transportation Arranged: Ambulance Service Categories #1: Physical Therapy, Prison Discharge Nursing Homes/Rehab Facilities: [facility] ??[facility] Service Comments #1: You are transferring to [facility] today for penitentiary and physicaltherapy. ?? Pulmonary Rehab Status?? Pulmonary Rehab Discharge Status?? [...] are strongly encouraged to quit. Please call [facility] at [phone] or [phone]) or log in to [email or web address] for referrals to smoking cessation programs. ?? 611 Suicide & Crisis Lifeline is available 03/11 if you or someone you know needs to find a reason to keep living. By calling 432 you'll be connected to a skilled, trained counselor at a crisis center in your area. INPATIENT DISCHARGE INSTRUCTIONS SIGNATURE PAGE JD FRAZIER Location:[facility] Registration Date and Time:12/02/2022 16:56 EDT Primary Care Physician: Jalen Obando NP, Lyla Fritz, Attending Physician: Jose Eduardo STAPLES, Kenny, I JD FRAZIER, have received the above patient education materials/instructions and have verbalized understanding. If ambulance or transport services are being used I further acknowledge being given a choice of service. ?? If you need to contact me, please call me at this number: . Patient/Director Of Graduate Medical Education Name: Patient/Director Of Graduate Medical Education Signature: Relationship to Patient: Witness Name/Signature: Date: * Event Display: Provider Clarification Note Please click on pdf link to open report Consult note * Juan Reid MD: PERFORM, MODIFY, MODIFY Event Display: Consultation Note Authored Date: [id number] Patient: ??JD FRAZIER ? Age:??52 Years?Sex:??Male?:??1970?? History of Present Illness 52-year-old man with history of multiple sclerosis. ??At baseline he is independent at, wheelchair??level. ??He also has a history of depression??and nicotine dependence. Recent admission on November 12to [facility] after a fall where he was found to have significant urinary retention, rhabdomyolysis and presumed UTI. Urology had to be consulted and there was difficulty with Valdez placement. Was started on finasteride and Flomax and subsequently discharged to [facility] and then to [facility]. He was readmitted here on 12/02??with concerns for urosepsis. Prehospital white cell count was 31.7 and he was noted to be hypotensive while in EMS care with BP as low as 75/35. ?? White blood count??today down to 12.2 K. ?? UA concerning for UTI but no bacteria seen. ?? MS was diagnosed over 10 years ago and was initially on treatment but he could tolerate treatment after about 6 months. ?? He has severe spasticity in the legs??and reports that he did not tolerate baclofen.?? He is on cyclobenzaprine. We are asked to consult primarily for spasticity management. Physical Exam Vitals & Measurements T:??97.8?F?? HR:??57??(Peripheral)?? RR:??17?? BP:??99/63?? SpO2:??95%?? HT:??179??cm?? WT:??75.9??kg?? BMI:??23.69?? General:??Alert.?? No apparent distress. Psychiatric: Mood:??Normal.?? Pleasant & Cooperative Oriented X 3??and able to name POTUS ?? HEENT: Cranial Nerves II-XII:??Grossly normal.?? EOMI.?? Blinks to threat??bilaterally Visual aparicio:??Full. ?? Visual neglect:??None.?? No diplopia or disconjugate gaze. ??No nystagmus. ?? Tracks:??Bilaterally ?? Extremities:? Passive ROM:??Bilateral hamstring contracture.? Neurologic? Follows Commands:??1 step well? Memory:??Grossly normal though detailed testing not done. Language:??Normal.?Dysarthria:??None. ??Dysphonia:??None.? Motor Exam:??Motor strength 5/5??UEs mild weakness in the intrinsics of the hands.?? Limited strength in lower extremities but??assessment not possible due to severe??spasms??and spasticity Sensory Exam: light touch??normal.?? Coordination Exam: Somewhat impaired in hands. ?? Spasticity Exam:??Trace in upper extremities. ??Modified Sarah score is mostly 3-4 in lower extremities. ??Fairly severe spasms triggered with any attempt to range him.? Mobility Exam:??Supine to sit independent,??sitting balance independent,? Romberg negative,??gait independent.?? Assessment/Plan 52-year-old man with multiple sclerosis??for at least 10 years. ??Not on treatment.?? Cognition grossly intact. He has severe??spasticity in the lower extremities and minimal to none in the upper extremities.?? 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 ?? Recommendations: ?? Activity:??Encourage ambulation with assistance Bowel Regimen:??Monitor on current regimen Bladder:??Valdez for retention and UTIs. ??May need??indwelling Valdez or??if he has the dexterity todo it??intermittent catheterization. ??Deferred to urology. Cognition/psychopharmacology:??Grossly normal.?? Though cannot rule out mild cognitive impairment. ??We will see how he does with??OT.?? DVT prophylaxis:??Agree with enoxaparin ?? Neurology:??Appreciate Neurology Note. Pain Management:??Spasticity/spasms. ??See below..? Spasticity:??Cyclobenzaprine is not an ideal medication??for spasticity. He reports that his baclofen trial only lasted 4 days but wiped him out.?? This is a bit puzzling as he presumably was on a low-dose. It is possible that he uses his spasticity to stand??and control of spasticity could affect that??but he is describing difficulty even sitting up. ?? I suggested that we try another??baclofen trial??slowly ramping up??and he was agreeable. I ordered baclofen 5 mg three times a day. ??If he is tolerating it well??can double it??in??about 2 days.?? Then increase to 15 mg 3 times daily after??2-3 more days ?? We could also??add tizanidine at some point but??hypotension could be an issue. ?? In the future, dantrolene could be considered. As needed benzodiazepines would also be reasonable. ?? If we cannot control his spasticity with medications, he would be an excellent??candidate for an intrathecal baclofen pump. ??I discussed this with him.?? He is somewhat opposed as he says??he dated someone with a baclofen pump??and was repulsed by the??idea of an implanted pump. ?? I reviewed some of the basics with him??and suggested he remain open minded??as it could greatly improve his quality of life. ?? Swallow:??No dysphagia. Continue regular texture diet. ?? Current rehab treatment & further recommendations: Occupational Therapy:??Pending. Physical Therapy:??Currently received Speech Therapy:??Not needed. ?? Disposition: Home with [facility] if he is back to his baseline, otherwise rehab. He has been at [facility] recently but then was in SNF??so acute rehab might not??be an option at thistime. Acute rehab would be ideal to try to titrate his baclofen. ?? Code Status:??Full Resuscitation HCP:??Has HCP in [facility] ?? He can follow-up with us as an outpatient.?[phone]. Problem List/Past Medical History Ongoing Fall from wheelchair MS (multiple sclerosis) Rhabdomyolysis Urinary retention UTI (urinary tract infection) Weakness Procedure/Surgical History No qualifying data available. Home Medications Acetaminophen: 650 mg = 2 tablet, By Mouth, Every 4 hours, PRN (pain/fever >100F) Bisacodyl: 10 mg = 1 supp, Rectally, Every 72 hours, PRN (if no BM in 3 days) Cephalexin: 500 mg = 1 capsule, By Mouth, Every 8 hours, 11/28/22 Until 12/03/22meatus infec Clotrimazole Topical: apply to meatus, Topically, 2 times a day Enoxaparin: 40 mg = 0.4 mL, Subcutaneous Injection, Daily, Started 11/30/22 Finasteride: 5 mg = 1 tablet, By Mouth, Daily Milk of Magnesia: 30 mL, By Mouth, Every 72 hours, PRN (if no BM in 3 days) Mirtazapine: 7.5 mg, By Mouth, Daily at bedtime Nicotine: 1 patch, Topically, Daily Oxycodone: 5 mg = 1 tablet, By Mouth, Every 6 hours, PRN (moderate pain) Sodium Biphosphate-Sodium Phosphate: 1 each, Rectally, Every 72 hours, PRN (if no BM in 3 days) Tamsulosin: 0.4 mg, By Mouth, Daily at bedtime Hospital Medications Medications (17) Active SCHEDULED: (10) Baclofen 10 mg Tablet (baclofen 10 mg oral tablet) ??5 mg, By Mouth, 3 times a day Ceftriaxone 1 Gm Inj (Rocephin Inj) ??1 Gm, IVPB, Every 24 hours Enoxaparin 40 mg Inj (Enoxaparin Inj) ??40 mg 0.4 mL, Subcutaneous Injection, Every 24 hours Ferrous Sulfate 325 mg EC Tablet (ferrous sulfate 325 mg oral enteric coated tablet) ??325 mg, By Mouth, Every other day Finasteride 5 mg Tablet (finasteride 5 mg oral tablet) ??5 mg, By Mouth, Daily Mirtazapine 15 mg Tablet (mirtazapine 15 mg oral tablet) ??7.5 mg, By Mouth, Daily at bedtime Mupirocin 2% Oint 22 Gm (Mupirocin Topical Oint) ??1 application, Topically, 2 times a day NaCl 0.9% Flush 3ml (NaCL 0.9% Flush) ??3 mL, IV Push, Every 8 hours Nystatin Ointment (Nystatin Topical) ??1 application, Topically, 3 times a day Tamsulosin 0.4 mg Capsule (Flomax 0.4 mg oral capsule) ??0.4 mg, By Mouth, Daily at bedtime CONTINUOUS: (0) PRN: (7) Acetaminophen 325 mg Tablet (Acetaminophen Tablet) ??650 mg, By Mouth, Every 4 hours Cyclobenzaprine 10 mg Tablet (cyclobenzaprine 10 mg oral tablet) ??10 mg, By Mouth, 3 times a day Melatonin 3 mg Tablet (Melatonin Tablet) ??3 mg, By Mouth, Daily at bedtime NaCl 0.9% Flush 3ml (NaCL 0.9% Flush) ??3 mL, IV Push, Every 8 hours OxyCODONE 5 mg IR Tablet (oxyCODONE 5 mg oral tablet) ??5 mg, By Mouth, Every 6 hours Polyethylene Glycol 17 Gm Powder (MiraLax Powder) ??17 Gm 1 pack/packet, By Mouth, Daily Senna 8.6 mg / Docusate 50 mg tablet (Docusate/Senna Tablet) ??1 tablet, By Mouth, 2 times a day Lab Results PM&R Labs WBC:??12.2 k/mm3??High (12/05/22) Platelet Count: 386 k/mm3 (12/05/22) Sodium: 137 mmol/L (12/05/22) BUN: 13 mg/dL (12/05/22) Creatinine-Blood: 0.9 mg/dL (12/05/22) AST (SGOT): 21 units/L (12/03/22 04:50:00) AST (SGOT): 37 units/L (12/02/22 14:40:00) ALT (SGPT): 29 units/L (12/03/22 04:50:00) ALT (SGPT): 35 units/L (12/02/22 14:40:00) * Alma Ng MD: MODIFY, MODIFY, MODIFY, PERFORM, MODIFY, MODIFY Event Display: Consultation Note Authored Date: Patient: ??JD FRAZIER ? Age:??52 Years?Sex:??Male?:??1970?? Reason for Consultation Requesting Attending/Provider: Dr. Oscar??Alissa ?? Reason for Consult: Pseudomonas UTI ?? Source of Information: [facility], patient?? History of Present Illness Complicated pleasant 52-year-old gentleman with MS who is wheelchair-bound, known urinary??retention with a??valdez??catheter in place who was brought from a nursing facility to the ED on 12/02/2021 with??abnormal labs showing a??leukocytosis??(WCC 31.7), hypotension per EMS notes with blood movksmsh50/35 and inability to take a obtain a temperature. ??His history significant for recent admit to [facility] with a fall, weakness rhabdo and concern for UTI from??(11/13-11/28). ??Notes in the ED state he had had a wound at the tip of his penis with a catheter and was complaining of dizziness, leg and lowback pain (unchanged). ??He denies any fevers, chills, sweats, nausea, vomiting, cough, shortness of breath, abdominal pain. ??Vitals in the ED were as follows: rectal temp 100.2, heart rate 70, respiratory rate 16, blood pressure 112/79 satting 98% on room air. ??Labs showed WBC 26.1 with 21.3% neutrophils, hemoglobin 13.5, platelets 281, glucose 67, creatinine 0.7, alk phos 109, AST 37, ALT 35,T. bili 0.4, lactate 1.4 and negative COVID-19 testing. ??Chest x-ray did not show anything acute. ??As he was hypotensive he was given 2 L of IV fluids in the ED. UA showed 2+ leucs, 38 WCCs and 74 RBCs from his valdez? which had been in for 3 weeks. He was empirically started on vanco and zosyn inthe ED. Antibiotics on admit were de-escalated to IV ceftriaxone. There was also concern for a possible penile lesion but improved. ID is asked to help with antibiotics as urine culture grew 10-50,000 cfu pseudomonas aeruginosa with negative blood cultures.? Past Medical and Surgical History: MS wheelchair-bound, urinary retention Valdez catheter in place, history of UTIs, depression, tobacco dependence, recent admit from 11/13 through 11/28/2022 with a fallfrom his wheelchair, weakness, rhabdo and concern for UTI in the setting of known urinary retentionon the catheter. ?? current antibiotics: -ceftriaxone (12/03-) ?? prior antibiotics: -vanco (12/02) -zosyn (12/02) ?? Medications: Reviewed ?? Antimicrobial Allergies: No known antimicrobial allergies. ?? Family History: No relevant history of infectious issues in first degree relatives.? Social History and Infectious Diseases Exposure History:??wheelchair bound, smoker.?? Review of Systems a full review of system was performed which was negative other than positive pertinence mentioned above?? Physical Exam Vitals & Measurements T:??97.8?F?? TMIN:??97.5?F?? TMAX:??98.8?F?? HR:??57??(Peripheral)?? RR:??18?? BP:??99/63?? SpO2:??95%?? General: Pleasant, in no apparent distress?? HEENT: PERRL, EOMI, anicteric sclera, pink conjunctiva, moist mucous membrane, no thrush, no OHL, neck supple, no cervical adenopathy CVS: RRR, S1, S2 Respiratory: Clear to auscultation Abdomen: Soft, nontender, nondistended, bowel sounds present : valdez in place with what appears to be some meatal erosion related to the catheter and minimal erythema at tip of penis which is not tender, no purulence, no odor Extremities: No cyanosis, clubbing or edema Derm: No rash Neuro: Alert and oriented x3, trying to follow commands but stiff and having spasms, spastic movements with decreased sensations from T5 down Assessment/Plan Complicated 52-year-old gentleman with MS who is wheelchair-bound, known urinary retention with a valdez catheter in place who was brought from a nursing facility to the ED on 12/02/2021 with??outside labs showing leucocytosis with hypotension treating with IV fluids and a dose of vanco and zosyn. ??Antibiotics were de- escalated to ceftriaxone with concern for UTI. Blood cultures (05/15) on 12/02 were negative. Urine culture on 12/02 eventually grew 10-50,000 cfu's Pseudomonas aeruginosa (resistant to levaquin, gent; intermediate amikacin but susceptible to zosyn, nia, tobra and cefepime/ceftaz). He has clinically improved since admit with WCC down to WCC 12.2, remains afebrile and his valdez catheter was changed. Hard to know what a culture from a catheter means when he improved and only received one dose of zosyn on admit. If this Pseudomonas in his urine were real and not colonization from a chronic catheter then would have expected him to decompensate without treatment which he did not. Seems to be improving on ceftriaxone and noted erythema on penis improving.?? Appears to have penile wound/irritation from his catheter and wonder if this is related to his uncontrolled spasticity and pulling at his catheter without realizing it. ?? PLAN: 1. on ceftriaxone and improving - could consider treating for a week total from antibiotics on admit (12/02) and if goes before de-escalating to oral keflex to complete his course 2. would discuss with Urology if any other option instead of a valdez for his retention such as suprapubic catheter if felt indicated as worry wound related to his catheter may worsen with an ongoing catheter and any pulling/tugging (hopefully treating his MS may help) 3. if worsens could ask W. kasie for their input too d/w med attending by phone please page with ?s. ID will sign off at this point thanks for the consult. Problem List/Past Medical History Ongoing Fall from wheelchair MS (multiple sclerosis) Rhabdomyolysis Urinary retention UTI (urinary tract infection) Weakness Medications Inpatient Acetaminophen Tablet, 650 mg, By Mouth, Every 4 hours, PRN baclofen 10 mg oral tablet, 5 mg, By Mouth, 3 times a day cyclobenzaprine 10 mg oral tablet, 10 mg, By Mouth, 3 times a day, PRN Docusate/Senna Tablet, 1 tablet, By Mouth, 2 times a day, PRN Enoxaparin Inj, 40 mg= 0.4 mL, Subcutaneous Injection, Every 24 hours ferrous sulfate 325 mg oral enteric coated tablet, 325 mg, By Mouth, Every other day finasteride 5 mg oral tablet, 5 mg, By Mouth, Daily Flomax 0.4 mg oral capsule, 0.4 mg, By Mouth, Daily at bedtime Melatonin Tablet, 3 mg, By Mouth, Daily at bedtime, PRN MiraLax Powder, 17 Gm= 1 pack/packet, By Mouth, Daily, PRN mirtazapine 15 mg oral tablet, 7.5 mg, By Mouth, Daily at bedtime Mupirocin Topical Oint, 1 application, Topically, 2 times a day NaCL 0.9% Flush, 3 mL, IV Push, Every 8 hours NaCL 0.9% Flush, 3 mL, IV Push, Every 8 hours, PRN Nystatin Topical, 1 application, Topically, 3 times a day oxyCODONE 5 mg oral tablet, 5 mg, By Mouth, Every 6 hours, PRN Rocephin Inj, 1 Gm, IVPB, Every 24 hours Home acetaminophen 325 mg oral tablet, 650 mg= 2 tablet, By Mouth, Every 4 hours, PRN bisacodyl 10 mg rectal suppository, 10 mg= 1 supp, Rectally, Every 72 hours, PRN cephalexin monohydrate 500 mg oral capsule, 500 mg= 1 capsule, By Mouth, Every 8 hours clotrimazole 1% topical cream, apply to meatus, [...] mL, By Mouth, Every 72 hours, PRN nicotine 21 mg/24 hr transdermal film, extended release, 1 patch, Topically, Daily oxyCODONE 5 mg oral tablet, 5 mg= 1 tablet, By Mouth, Every 6 hours, PRN Allergies NKA Social History Tobacco Use: 5-9 cigarettes (between 1/4 to 1/2 pack)/day in last 30 days. Lab Results Last 24 Hours?Basic Metabolic Panel:?Hematology:?Sodium: 137 mmol/L (12/05/22) ??Hgb: 11.3 Gm/dL (12/05/22) ??Potassium (POC): 4.2 mmol/L (12/05/22) ??Hemoglobin A1C (Monitoring): ------ ??Phosphorus: ------ ??WBC: 12.2 k/mm3 (12/05/22) ??Magnesium: ------ ??Platelets: 386 k/mm3 (12/05/22) ??BUN (POC) POC Cartridge: 13 mg/dL (12/05/22) ??INR Level: ------ ??Creatinine-Blood: 0.9 mg/dL (12/05/22) ?Creatinine Clearance: ------ ? Additional - Last 24 Hours?Abs. Baso: 0.1 k/mm3 (12/05/22) ??Abs. Eo: 0.4 k/mm3 (12/05/22) ??Abs. Imm Gran: 0.1 k/mm3 (12/05/22) ??Abs. Lymph: 2.7 k/mm3 (12/05/22) ??Abs. Ashe: 1.4 k/mm3 (12/05/22) ??Abs. Neut: 7.6 k/mm3 (12/05/22) ??Abs. NRBC: 0.0 k/mm3 (12/05/22) ??Anion Gap: 9 (12/05/22) ??Baso %: 0.5 % (12/05/22) ??Bicarbonate Level: 25 mmol/L (12/05/22) ??BUN: BUN (12/05/22) ??Chloride: 103 mmol/L (12/05/22) ??Creatinine, Blood: Creatinine, Blood (12/05/22) ??Eos %: 3.0 % (12/05/22) ??Est Creatinine Clearance: 100.61 (12/05/22) ??Estimated GFR Creatinine: 104 ML/MIN/1.73 M2 (12/05/22) ??Hct: 33.8 % (12/05/22) ??Imm Gran: 0.5 % (12/05/22) ??Lymph %: 22.1 % (12/05/22) ??MCH: 29.1 pg (12/05/22) ??MCHC: 33.4 g/dL (12/05/22) ??MCV: 87.1 femtoliters (12/05/22) ??Ashe %: 11.8 % (12/05/22) ??MPV: 9.1 femtoliters (12/05/22) ??Neut %: 62.1 % (12/05/22) ??Nucleated RBC (Automated): 0.0 #/100 WBC'S (12/05/22) ??RBC: 3.88 m/mm3 (12/05/22) ??RDW-SD: 43.0 femtoliters (12/05/22) ??Urine Culture: Urine Culture (12/05/22) ? * [employer] SENIOR TECHNICAL PROJECT MANAGER, Ena: PERFORM, MODIFY Event Display: Consultation Note Authored Date: Patient: ??JD FRAZIER ? Age:??52 Years?Sex:??Male?:??1970?? Chief Complaint/Reason for Consult Complaint; MS, treatment options, spasms History of Present Illness Mr. Frazier, 52-year-old male with past medical history of multiple sclerosis diagnosed in [address] Larsen up until couple years ago since has been lost to follow-up has not arranged a new neurologist after Dr. Larsen on the left the area, he had a recent admission to [facility] was discharged to acute rehab on November 13, he was presumed to have a UTI and also treated fo rhabdo (he had a fall from his w/c at time of presentation), he was discharged on 11/27 to SNF and now readmitted due to abnormal labs and concern for sepsis he had an elevated WBC of 31.7 while in EMS care his systolic blood pressure was less than 90 and reported last BP on admission of 75/35 who neurology was called to see for MS treatment options and for treatment of his spasms. ?? She reports that previously he was followed with Dr. Guerra on a.?? He says he was diagnosed with MS in 2012.?? He thinks initially he was on Copaxone thinks for about 6 months.?? He seems to be unreliable as the most recent medication he mentions being on was naltrexone.?? He says he does not like pharmaceuticals.?? He apparently has been wheelchair-bound in the last year however was able to stand and pivot.?? Most recently in the last 3 weeks after he sustained a fall when he presented to [facility] on November 12 he has not had the ability to stand.?? He has a sensory level of about [id number] states that it is chronic.?? He now has had a Valdez in since his previous admission to [facility] however apparently intermittently it did come out and he did have sensation to void as per patient however again he does not seem to be completely reliable.?? Denies any bowel incontinence.?? He is having spasms in his legs that are stimulus sensitive.?? He has blood cultures are negative.?? His urine culture is growing Pseudomonas.?? His chest x-ray did not show any acute pathology Review of Systems Per HPI Physical Exam Vitals & Measurements T:??97.5?F?? HR:??58??(Peripheral)?? RR:??17?? BP:??92/55?? SpO2:??97%?? HT:??179??cm?? WT:??75.9??kg?? BMI:??23.69? GENERAL APPERANCE:??Appears stated age HEENT:?? NC/AT NECK: supple, LUNGS: ??Normal I:E HEART: RRR ABD: soft, ND, NT. EXT: No clubbing, no edema SKIN: no obvious rashes NEURO:??awake and alert, oriented to self, place, mo/yr and situation follows commands no aphasia Cranial Nerves:?? Pupils: PERRL Visual:??VFF EOMI: Intact Facial sensation:??intact b/l to LT Smile is symmetric Hearing: intact bilaterally to finger rub Speech: slow, mild slurring, fluent?? Tongue: Protrudes Midline Gag: soft palate raises equally Shoulder shru/5 Neck musculature: 5/5 Motor Exam: Strength:??b/l UEs 4+/5 b/l LEs; noted to be spastic, spasms affected by stim, anti-gravity increased tone in b/l UEs and in b/l LEs; these being worse LT decreased from T5 down b/l toes upgoing. Sensory: sensation to light touch intact and equal bilaterally to face, bilateral upper extremities, decreased from T5 down. Coordination:FTN intact b/l with slow/spastic like movements in his arms. Assessment/Plan 52-year-old male with past medical history of multiple sclerosis diagnosed in [address] Larsen up until couple years ago since has been lost to follow-up has not arranged a new neurologist after Dr. Larsen on the left the area, he had a recent admission to [facility] was discharged to acute rehab on November 13, he was presumed to have a UTI and also treated for rhab do (he had a fall from his w/c at time of presentation), he was discharged on 11/27 to SNF and now readmitted due to abnormal labs and concern for sepsis he had an elevated WBC of 31.7 while in EMS care his systolic blood pressure was less than 90 and reported last BP on admission of 75/35 who neurology was called to see for MS treatment options and for treatment of his spasms. ?? dx Multiple Sclerosis, ? 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 worsening in setting of infection vs.?? possible active demyelination ?? Plan -please check a head CT w/o bandar -tx of infection as per primary team -evaluate for any active plaques; pls obtain MRI of T-spine and L-spine with and w/o bandar. -pmr consult for spams and spasticity -pt ?? dw Dr. George will follow Please dionisio for any questions Dr. Alissa jama'ed. -dvt prophylaxis Problem List/Past Medical History Ongoing Fall from wheelchair MS (multiple sclerosis) Rhabdomyolysis Urinary retention UTI (urinary tract infection) Weakness Procedure/Surgical History No qualifying data available. Home Medications Acetaminophen: 650 mg = 2 tablet, By Mouth, Every 4 hours, PRN (pain/fever >100F) Bisacodyl: 10 mg = 1 supp, Rectally, Every 72 hours, PRN (if no BM in 3 days) Cephalexin: 500 mg = 1 capsule, By Mouth, Every 8 hours, 11/28/22 Until 12/03/22meatus infec Clotrimazole Topical: apply to meatus, Topically, 2 times a day Enoxaparin: 40 mg = 0.4 mL, Subcutaneous Injection, Daily, Started 11/30/22 Finasteride: 5 mg = 1 tablet, By Mouth, Daily Milk of Magnesia: 30 mL, By Mouth, Every 72 hours, PRN (if no BM in 3 days) Mirtazapine: 7.5 mg, By Mouth, Daily at bedtime Nicotine: 1 patch, Topically, Daily Oxycodone: 5 mg = 1 tablet, By Mouth, Every 6 hours, PRN (moderate pain) Sodium Biphosphate-Sodium Phosphate: 1 each, Rectally, Every 72 hours, PRN (if no BM in 3 days) Tamsulosin: 0.4 mg, By Mouth, Daily at bedtime Allergies NKA Social History Tobacco Use: 5-9 cigarettes (between 1/4 to 1/2 pack)/day in last 30 days. Family History No family history recorded. * Doris STAPLES, Steven: PERFORM Event Display: Consultation Note Authored Date: [id number] I have reviewed??the admitting??symptoms??and agree with the assessment and plans as outlined by Daniela. ??Not??given the progressive MS with bladder incontinence??and a Valdez catheter??and active UTI it may be possible that??given the acute infection he is??worse??in terms of spasm as well as MS symptoms.?? If MRI of the spine does not show any acute lesions??further??management of MS may be done outpatient in the MS clinic.?? His CT does not show any acute findings but does show evidence of a ri ght??thalamic??possible lacune??in addition to significant white matter disease possibly from MS.??We are severely impacted by the lack of MRI??and the delay??from??55 patient is waiting on an MRI??and it is not clear??if??brain MRI can be done??in this timeframe to clarify the right thalamic lesion,??risk factor modification??as well as??rehabilitation consults as is ongoing. Patient Care team information Care Team Personnel Name: Jalen Obando NP, Lyla Fritz Position: [facility] PCO Associate Professional Member Role: PCP Address: Address: [address] [place] [address] [place] [address]- Name: Janie Samuels RN Position: [facility] RN Supv Member Role: Primary Care Nurse Name: Benja Christianson RN Position: [facility] RN Member Role: Primary Care Nurse Name: Conrado Peña RN Position: [facility] RN Member Role: Primary Care Nurse Name: Linda Mcbride RN Position: [facility] RN Member Role: Primary Care Nurse Name: Vanessa QUINONES Attending Position: [facility] ED Medicine Name: Usama Reyes Position: [facility] ED [facility] Member Role: Patient Care Provider Name: Lorena Ayoub RN Position: [facility] ED RN W/OE and Tasks Member Role: Patient Care Provider Name: Keagan Alegria Position: S ED OA Charge Member Role: ED Associate Care Team Related Persons Name: LANCECARMINA MEJNIVAR Address: home [address] [place] [id number] Name: LORNE TINEO Address: [place] [address]
--- OUTSIDE RECORDS SUMMARY | 2023-09-25 11:10 | XMS_ITS | Continuity of Care Document ---
Author Organization [facility] Address [address] [facility], [address] Floor, [address] [place] [id number]- Care Team Providers Care Zinc Furnace Charger Name Role Phone Jalen Obando GRANITE POLISHER, Lyla Fritz Primary Care P bessy [place] [facility] [place] 12/23/22 - 01/22/23 [facility] [address], [address] Floor, [address] [place] [id number] Allergies, Adverse Reactions, Alerts No Known Allergies [...] information Care Team Personnel Name: Jalen Obando GRANITE POLISHER, Lyla Fritz Position: [facility] PCO Associate Professional Member Role: PCP Address: Address: [address] [place] [id number]- Name: Benja Christianson RN Position: S RN Member Role: Primary Care Nurse Name: Conrado Peña RN Position: S RN Member Role: Primary Care Nurse Name: Linda Mcbride RN Position: [facility] RN Member Role: Primary Care Nurse Care Team Related Persons Name: CARMINA AVILA Address: home [address] [place] [id number] Name: LORNE TINEO Address: [place] [address]
--- OUTSIDE RECORDS SUMMARY | 2023-09-25 11:10 | XMS_ITS | Continuity of Care Document ---
Author Organization [facility] Address [address] [place] [id number]- Care Team Providers Care Apprentice/Lineman Name Role Phone Not on Staff, PCP Primary Care Physician Unavail able Encounter [facility] [place] Date(s): 02/24/23 - 03/26/23 [facility] [address] [place] [address]- Allergies, Adverse Reactions, Alerts No Known Allergies [...] Team Personnel Name: Sabine Calvo RN Position: [facility] RN Member Role: Primary Care Nurse Name: Chyna Curtis RN Position: S RN Member Role: Primary Care Nurse Name: Austin Holden RN Position: [facility] RN Member Role: Primary Care Nurse Name: Benja Christianson RN Position: [facility] RN Member Role: Primary Care Nurse Name: Chyna Gooden LPN Position: S RN Member Role: Primary Care Nurse Name: Conrado Peña RN Position: [facility] RN Member Role: Primary Care Nurse Name: Vitaliy Marie RN Position: [facility] RN Member Role: Primary Care Nurse Name: Not on Staff, PCP Position: [facility] Physician (General Medicine) Member Role: PCP Name: Linda Mcbride RN Position: [facility] SN RN Member Role: Primary Care Nurse Name: Eloise Arenas RN Position: [facility] RN Member Role: Primary Care Nurse Name: Price Saeed RN Position: [facility] RN Member Role: Primary Care Nurse Name: Flavia Villegas RN Position: [facility] RN Member Role: Primary Care Nurse Name: Kelly Dodge RN Position: [facility] RN Member Role: Primary Care Nurse Care Team Related Persons Name: CARMINA AVILA Address: home [address] [place] [phone] Name: NOMAN LORNE Address: [place] [address]
--- OUTSIDE RECORDS SUMMARY | 2023-09-25 11:10 | XMS_ITS | Continuity of Care Document ---
Author Organization [facility] Address [address] [place] [address]- Care Team Providers Care Cracker Dough Mixer Name Role Phone Jalen Obando LINK MACHINE OPERATOR, Lyla Fritz Primary Care P bessy Encounter [facility] Date(s): 12/22/22 - 01/21/23 [facility] [address] [place] [address]- Allergies, Adverse Reactions, Alerts No Known Allergies [...] information Care Team Personnel Name: Jalen Obando LINK MACHINE OPERATOR, Lyla Fritz Position: [facility] PCO Associate Professional Member Role: PCP Address: Address: [address] [place] [address] Primary Care [place], [place] [address] Name: Benja Christianson RN Position: S RN Member Role: Primary Care Nurse Name: Conrado Peña RN Position: S RN Member Role: Primary Care Nurse Name: Linda Mcbride RN Position: [facility] RN Member Role: Primary Care Nurse Care Team Related Persons Name: CARMINA AVILA Address: home [address] [place] [address] Name: LORNE TINEO Address: [place] [address]
--- NOTE | 2023-09-25 11:24 | MHC.OFFVIS ---
Intake Visit Reasons: urinary retention, UTI Intake Note: New Patient presents today for initial visit to establish treatment for : Uti and urinary retention Urology Medications: none Allergies to Antibiotic: none Blood Thinner: none *patient has catheter* Roller Helper Required: No Accompanied by: EMT Allergies No Known Allergies Allergy (Verified 09/25/23 12:53) Medication List - Last Reconciled 09/25/23 by ASUNCION Crespo acetaminophen 650 mg PO Q2H PRN acetic acid 0.25% irrigation cholecalciferol (vitamin D3) mcg PO dantrolene mg PO diazepam 5 mg PO BID PRN duloxetine 20 mg PO DAILY fentanyl 25 mcg/hr 1 patch topical Q3D fludrocortisone mg PO melatonin 5 mg PO BEDTIME PRN midodrine 15 mg PO TID ondansetron HCl 4 mg PO Q8H PRN oxycodone 5 mg PO BID PRN pantoprazole 20 mg PO DAILY psyllium seed (sugar) (Metamucil (sugar) oral powder) 1 tbsp PO DAILY sennosides (Senna Lax) 8.6 mg PO BID thiamine HCl (vitamin B1) 100 mg PO BID tizanidine 2 mg PO TID HPI Comments Details: Robbin is a very pleasant 53 year old [facility] male patient. He has a past medical history of MS, depression, contractures, neuromuscular dysfunction of the bladder, UTIs, urinary retention, chronic pain, and muscle spasms. He presents to the office today as a new patient for urinary retention. In discussion with the patient today he reports approximately 9 months ago having suffered a fall at home due to muscular spasms at which time he was admitted to [facility] and has since been in and out of rehabs.He reports during one of his hospitalizations a Valdez catheter was inserted however he is unsure as to why. He reports prior to insertion of catheter he had not had any urological issues or concerns. He reports he had been voiding independently. Discussed neurogenic bladder verses incomplete bladder emptying versus urinary retention. Discussed further workup with imaging and in office cystoscopy. Patient discusses his reluctancy to cystoscopy. Call to long-term facility that the patient resides [facility] [phone] spoke to [facility] nurse to discuss plan of care. In review of patient's chart it appears orders were faxed to facility for voiding trial however in discussion with the nurse today this was never completed/done. She reports patient may possibly be going on hospice. Discussed further workup of possible urinary retention with PSA and retroperitoneal ultrasound as well as voiding trial. Nursing states they will discuss these recommendations with CARMINA ramírez. In review of medication administration record that was provided during today's office visit does not appear patient is on any urological medications at this time. [facility] Social History Alcohol intake: former Substance Use Type: Marijuana Advance Directives Date on File: 07/30/23 Review of Systems Const Reports as per HPI Eyes Reports no additional complaints ENT Reports no additional complaints Card Reports no additional complaints Resp Reports no additional complaints GI Reports no additional complaints Reports as per HPI Musc Reports as per HPI Neuro Reports as per HPI Psych Reports as per HPI Endo Reports no additional complaints Hernando/Lymph Reports no additional complaints Aller/Immun Reports no additional complaints Physical Exam Const General: cooperative, comfortable, no acute distress, well developed, alert and awake Orientation/consciousness: patient oriented x3 Limitations: other limitations (stretcher ) HEENT Head: Yes normal to inspection Eyes General: appearance normal, both eyes and all related structures Neck Neck: Yes normal visual inspection Chest Chest palpation & inspection: normal inspection of the chest Resp Effort & Inspection: normal respiratory effort and able to speak in complete sentences Cardio Rate: regular rate GI Inspection: Yes normal to inspection Other: Indwelling valdez catheter present draining clear yellow urine. Neuro General: patient oriented x3 Extrem Other: patient with bilateral lower legs contracted Psych Mental Status: mental status grossly normal Speech and movement: Clear speech present Affect: normal affect Attitude: cooperative Thought process: Normal thought process present Thought content: Normal thought content present Insight: Fair insight present (Psych) Judgement: Fair judgement present (Psych) Assessment & Plan Assessment & Plan (1) Urinary retention: Code(s): R33.9 - Retention of urine, unspecified Category: Medical (2) Recurrent UTI: Code(s): N39.0 - Urinary tract infection, site not specified Category: Medical (3) Valdez catheter in place: Code(s): Z97.8 - Presence of other specified devices Category: Medical Plan Valdez catheter present; draining clear yellow urine; discussed cycling bladder with catheter cap throughout the day emptying bladder every 3-4 hours and utilizing night bag at night. Discussed obtaining retroperitoneal ultrasound for further assessment evaluation. Discussed obtaining PSA for further assessment evaluation. Call to long-term [facility] facility spoke with Hermila to discuss plan of care. Discussed possible in office cystoscopy for further assessment evaluation Discussed attempting voiding trial Follow-up in 1-3 months with imaging and lab to be completed prior; or sooner with any issues, concerns, and or questions. Patient Instructions: The patient had an opportunity to ask questions regarding the treatment plan. All questions were answered. Physical exam, labs, and imaging were discussed and reviewed in detail. As well as risks, benefits, and discussion of treatment choices. No major barriers to understanding were identified. The patient expressed understanding and agreement with the above treatment plan. The patient was made aware they should contact our office by phone for worsening of their current condition, the appearance of new symptoms, or with any questions or concerns. Compliance is encouraged with any medications and follow up testing that is ordered. It is a privilege to be allowed the opportunity to participate in? your urological care.? Again, if you have any questions or concerns If you have any questions or concerns please do not hesitate to contact me. The office is [phone]. This note is constructed using voice recognition software. While every effort has been made to ensure accuracy slot supervisor errors may have been included. Yours sincerely, ASUNCION Crespo Coding Level of Care Code New Pt Level 4 (11526) Diagnoses Urinary retention R33.9 Recurrent UTI N39.[address] Z97.8 Time Spent (min) 40
== END 2023-09-25 13:44 | disposition home or self-care (01) ==
LOC: HO.HUSH 11:09
PROVIDERS: Visit Provider Nurse Practitioner Family
DX: R33.9 Retention of urine, unspecified (principal); N39.0 Urinary tract infection, site not specified; Z97.8 Presence of other specified devices
CPT/HCPCS: 99204

== ENCOUNTER → 2023-09-25 11:08 | Outpatient (BNVA) | payer MEDICARE, MEDICAID, SELFPAY | PROVIDERS: Visit Provider Nurse Practitioner Family | DX: R33.9 Retention of urine, unspecified (principal); N31.9 Neuromuscular dysfunction of bladder, unspecified; N39.0 Urinary tract infection, site not specified; Z96.0 Presence of urogenital implants | CPT/HCPCS: 99202 ==